=== PATIENT | female | born 1960 | race Caucasian/White ===

== ENCOUNTER → 2017-12-15 15:14 | Outpatient (CLI) | payer OTHER, SELFPAY ==
[2017-12-15 16:00] LABS: Add Manual Diff / Slide Review NO; Basophils Percent Auto 0.8 % (0-2); Eosinophils Percent Auto 1.5 % (2-4); Hematocrit 36.6 % (36-46); Hemoglobin 12.3 g/dL (12.0-16.0); Lymphocytes Percent Auto 32.8 % (25-40); Mean Corpuscular HGB Conc 33.6 % (30-36); Mean Corpuscular Hemoglobin 29.9 PG (26-34); Monocytes Percent Auto 8.3 % (3-14); Neutrophils Absolute Auto 3100 /uL (3000-5900); Neutrophils Percent Auto 56.6 % (50-75); Platelet Count 344 X10^3/uL (150-400); Red Blood Cell Count 4.11 X10^6/uL (4.0-5.2); Red Cell Distribution Width 13.5 % (11.6-14.8); White Blood Cell Count 5.5 X10^3/uL (4.5-11.0)
[2017-12-15 16:24] LABS: HEMOLYSIS < 15 (0-50); Iron 37 ug/dL (37-170)
[2017-12-15 16:35] LABS: Percent Iron Saturation 9 % (15-50); Total Iron Binding Capacity 392 ug/mL (265-497); Transferrin 323 mg/dL (206-381)
== END ==
PROVIDERS: Family Provider Family Medicine; PCP Family Medicine; Visit Provider Nurse Practitioner Gerontology
DX: D64.9 Anemia, unspecified (principal); D50.9 Iron deficiency anemia, unspecified
CPT/HCPCS: 36415; 83540; 83550; 85025

== ENCOUNTER 2017-12-24 14:12 | Emergency (ER) | payer OTHER, SELFPAY ==
--- NOTE | 2017-12-24 15:01 | ED.ABDPAIN ---
HPI - Abdominal Pain <Mary Saeed PA-C - Last Filed: 12/24/17 21:33> General Chief Complaint: Abdominal Pain Stated Complaint: PAIN ON LOWER LEFT SIDE,PELVIC PAIN Time Seen by Provider: 12/24/17 15:00 Source: patient Mode of arrival: ambulatory Limitations: no limitations History of Present Illness HPI narrative: This 57 year old female states that she has a known incisional hernia on the left side (diagnosed on exam per PCP). She states that initially she was supposed to have surgery for this a couple of years ago but could not due to other issues arising. Pain has been getting worse and she has already seen her PCP and has an appointment with surgery in about 3 weeks, however it seems much worse today. She denies any specific exacerbating features, does not remember lifting, bending or any specific action that worsen the pain. It might be worse with some movements now. She states that she was treated twice for diverticulitis but really did not improve. She denies any fever. She states that she has ongoing intermittent chills which are unchanged. She states that she has intermittent constipation and diarrhea for the last couple of days, which is not a new change for her. She denies any new urinary symptoms. She has mild nausea but no vomiting. She states that the pain can radiate from the groin crease up into the hip area and down into the thigh a little bit. She describes this as a ?pulling? sensation. She notes that she has been taking [place] once daily but out of that since yesterday. Related Data Home Medications Medication Instructions Recorded Confirmed methocarbamol 750 mg PO TIDP PRN 12/24/17 12/24/17 ondansetron [Zofran ODT] 4 mg SUBLINGUAL Q6HP PRN 12/24/17 12/24/17 Previous Rx's Medication Instructions Recorded omeprazole 40 mg PO QDAY #30 cap 12/14/17 hydrocodone-acetaminophen [Co[place]urn] 1 tab PO Q4-6H PRN #7 tab 12/24/17 hydrocodone 5 mg-acetaminophen 325 1 tab PO Q6H PRN #10 tab 12/25/17 mg tablet Allergies Allergy/AdvReac Type Severity Reaction Status Date / Time penicillin G [PENICILLIN G] Allergy Severe RASH AND Verified 12/24/17 15:07 ITCHING Sulfa (Sulfonamide Allergy Severe HIVES Verified 12/24/17 15:07 Antibiotics) [SULFA (SULFONAMIDE ANTIBIOTICS)] milnacipran [From Savella] AdvReac Severe anxiety Verified 12/24/17 15:07 and elevated BP venlafaxine [VENLAFAXINE] AdvReac Severe MESSED ME Verified 12/24/17 15:07 UP bupropion [BUPROPION] AdvReac Intermediate MESSED ME Verified 12/24/17 15:07 UP ibuprofen [IBUPROFEN] AdvReac Intermediate GI BLEEDING Verified 12/24/17 15:07 lisdexamfetamine AdvReac Intermediate Swelling Verified 12/24/17 15:07 [From VYVANSE] of arms, legs, neck methylphenidate AdvReac Intermediate muscle Verified 12/24/17 15:07 [From CONCERTA] spasm swelling of neck and arms Review of Systems <Mary Saeed PA-C - Last Filed: 12/24/17 21:33> Review of Systems All systems reviewed & are unremarkable except as noted in HPI and below Exam <Mary Saeed PA-C - Last Filed: 12/24/17 21:33> Narrative Exam Narrative: GENERAL APPEARANCE: Patient sitting comfortably, in no distress. HEENT: PERRL, EOMI, no scleral icterus NECK: Supple LUNGS: Clear to auscultation bilaterally. HEART: Rate and rhythm regular, normal S1 and S2, no S3 or S4. ABDOMEN: Soft, obese, nondistended, bowel sounds present x 4 quadrants, no hepatosplenomegaly. She is tender over the faint surgical scar near the left pubis and crural fold. There is some increased prominence lateral to this but no circumscribed mass or reducible mass palpated supine or standing She has more mild tenderness in the inferior part of the left lower quadrant without guarding or rebound. Some tenderness is elicited with forced left hip eversion EXTREMITIES: No edema, no cyanosis DERMATOLOGIC: No jaundice or exanthem NEUROLOGIC: Alert and oriented with normal speech and coordination Initial Vital Signs Initial Vital Signs: Vital Signs Temperature 98.9 F 12/24/17 15:07 Pulse Rate 87 12/24/17 15:07 Respiratory Rate 17 12/24/17 15:07 Blood Pressure 148/89 H 12/24/17 15:07 Pulse Oximetry 97 12/24/17 15:07 <James Cox DO - Last Filed: 12/27/17 00:48> Initial Vital Signs Initial Vital Signs: Vital Signs Temperature 98.9 F 12/24/17 15:07 Pulse Rate 87 12/24/17 15:07 Respiratory Rate 17 12/24/17 15:07 Blood Pressure 148/89 H 12/24/17 15:07 Pulse Oximetry 97 12/24/17 15:07 Course <Mary Saeed PA-C - Last Filed: 12/24/17 21:33> Orders Ordered: Discontinued Medications Hydrocodone Bitart/Acetaminophen ([place] 5/325) 2 tab PO NOW ONE Stop: 12/24/17 15:42 Last Admin: 12/24/17 15:54 Dose: 2 tab Vital Signs - 8 hr 12/24/17 15:07 12/24/17 16:41 12/24/17 17:57 Temperature 98.9 F Pulse Rate 87 71 90 Respiratory Rate 17 18 16 Blood Pressure 148/89 H 139/99 H Blood Pressure [Left Arm] 134/85 H Pulse Oximetry 97 100 100 <James Cox DO - Last Filed: 12/27/17 00:48> Orders Ordered: Discontinued Medications Hydrocodone Bitart/Acetaminophen ([place] 5/325) 2 tab PO NOW ONE Stop: 12/24/17 15:42 Last Admin: 12/24/17 15:54 Dose: 2 tab Vital Signs - 8 hr 12/24/17 15:07 12/24/17 16:41 12/24/17 17:57 Temperature 98.9 F Pulse Rate 87 71 90 Respiratory Rate 17 18 16 Blood Pressure 148/89 H 139/99 H Blood Pressure [Left Arm] 134/85 H Pulse Oximetry 97 100 100 MDM - Abdominal Pain <THI Meza Last Filed: 12/24/17 21:33> Imaging Data CT scan - abdomen: Radiologist's impression: [address] [address] [address] Scan Report Signed Patient: Milagro Duke MR#: [id number] : 1960 Acct:[id number] Age/Sex: 57 / F Date of Service: 12/24/17 Loc: ED Accession Number: [id number] Procedure: CT abdomen pelvis wo con Ordering Provider: Mary Saeed P.A-C PROCEDURE: CT ABDOMEN PELVIS WO CON INDICATIONS: L. incisional hernia/pain TECHNIQUE: Noncontrast 5 mm thick sections acquired from the diaphragms to the symphysis. 5 mm coronal and sagittal reformats were then performed. For radiation dose reduction, the following was used: automated exposure control, adjustment of mA and/or kV according to patient size. COMPARISON: None. FINDINGS: Image quality: Excellent. ABDOMEN: Lung bases: Lung bases are clear. Heart size is normal. There is a moderately large hiatal hernia behind the heart and mild reflux of oral contrast into the distal esophagus can be seen. Solid organs: Liver is normal in size. Gallbladder appears normal. Pancreas is normal in contours. Spleen is normal in size. No adrenal nodules. Kidneys are normal in size, without hydronephrosis or nephrolithiasis. Peritoneum and bowel: Unenhanced bowel loops demonstrate normal wall thickness and caliber. No free fluid or air. Nodes and vessels: No retroperitoneal or mesenteric adenopathy by size criteria. Aorta and inferior vena cava are normal in caliber. Miscellaneous: No ventral hernias. PELVIS: Genitourinary: Bladder wall thickness is normal. Miscellaneous: No inguinal hernias or adenopathy. A normal appendix is found at the right lower quadrant. Bones: No suspicious bony lesions. No vertebral body compression fractures. IMPRESSION: Moderately large hiatal hernia behind the heart, extension of oral contrast into the distal esophagus suggests mild reflux. No inflammatory change found throughout the abdomen or pelvis. Normal appendix found. No sign of diverticulitis. Mild diverticulosis incidentally noted left lower quadrant. Dictated by: John Sevilla M.D. on 12/24/2017 at 16:57 Approved by: John Sevilla M.D. on 12/24/2017 at 16:59 Discharge Plan Departure Patient Disposition: Home, Self-Care Clinical Impression: Abdominal pain Discharge Date/Time: 12/24/17 17:50 Interventions: ED Discharge Assessment Last Done: 12/24/17 17:57 Instructions: DI for Abdominal Pain-Adult Activity Restrictions/Additional Instructions: Your CT scan today does not show an incisional hernia. There does not seem to be any acute intestinal inflammation or surgical issue. You do have the large hiatal hernia which you were aware of, but that is not likely to be causing your pain. It is possible that this is related to a hip issue or muscle or ligament pain. You may also have scar tissue around your incision as well. Try taking Tylenol extended release or arthritis strength, 650 mg every 8 hr around the clock. You can add the prescription hydrocodone/acetaminophen to this when pain is more severe (maximum dose of acetaminophen 3000mg daily). You may want to just take an additional 2 of the prescription pain pills tonight at bedtime. Remember that this can make you sleepy and not to drive. Call your PCP office 1st thing tomorrow and make sure you get in for follow-up to talk about further evaluation, and also to get a refill on pain medication since you are not able to take anti-inflammatories Prescriptions: New hydrocodone-acetaminophen [[place]urn] 5-325 mg tablet 1 tab PO Q4-6H PRN (Reason: pain) Qty: 7 RF: 0 No Action omeprazole 40 mg capsule,delayed release(DR/EC) 40 mg PO QDAY Qty: 30 RF: 2 hydrocodone-acetaminophen 5-325 mg tablet 1 tab PO Q6H PRN (Reason: pain) Qty: 10 RF: 0 methocarbamol 750 MG tablet 750 mg PO TIDP PRN (Reason: Spasms) RF: 0 ondansetron [Zofran ODT] 4 MG tablet,disintegrating 4 mg Sublingual Q6HP PRN (Reason: Nausea) RF: 0 Referrals: Vania Leger DO [Primary Care Provider] - <James Cox DO - Last Filed: 12/27/17 00:48> [facility] Attending Bryan Attestation: I was immediately available in the department for consultation. Documentation has been reviewed. I agree with assessment and plan.
[2017-12-24 15:07] VITALS: BP 148/89; PULSE 87; RESP 17; TEMP 37.2; O2SAT 97; BMI 31.6
[2017-12-24] MEDS: HYDROCODONE/ACET 5/325 TABLET 2 TAB PO (15:54)
--- NOTE | 2017-12-24 16:34 | DI.CT.S_ITS ---
PROCEDURE: CT ABDOMEN PELVIS WO CON INDICATIONS: L. incisional hernia/pain TECHNIQUE: Noncontrast 5 mm thick sections acquired from the diaphragms to the symphysis. 5 mm coronal and sagittal reformats were then performed. For radiation dose reduction, the following was used: automated exposure control, adjustment of mA and/or kV according to patient size. COMPARISON: None. FINDINGS: Image quality: Excellent. ABDOMEN: Lung bases: Lung bases are clear. Heart size is normal. There is a moderately large hiatal hernia behind the heart and mild reflux of oral contrast into the distal esophagus can be seen. Solid organs: Liver is normal in size. Gallbladder appears normal. Pancreas is normal in contours. Spleen is normal in size. No adrenal nodules. Kidneys are normal in size, without hydronephrosis or nephrolithiasis. Peritoneum and bowel: Unenhanced bowel loops demonstrate normal wall thickness and caliber. No free fluid or air. Nodes and vessels: No retroperitoneal or mesenteric adenopathy by size criteria. Aorta and inferior vena cava are normal in caliber. Miscellaneous: No ventral hernias. PELVIS: Genitourinary: Bladder wall thickness is normal. Miscellaneous: No inguinal hernias or adenopathy. A normal appendix is found at the right lower quadrant. Bones: No suspicious bony lesions. No vertebral body compression fractures. IMPRESSION: Moderately large hiatal hernia behind the heart, extension of oral contrast into the distal esophagus suggests mild reflux. No inflammatory change found throughout the abdomen or pelvis. Normal appendix found. No sign of diverticulitis. Mild diverticulosis incidentally noted left lower quadrant. Dictated by: John Sevilla M.D. on 12/24/2017 at 16:57 Approved by: John Sevilla M.D. on 12/24/2017 at 16:59
[2017-12-24 16:41] VITALS: BP 134/85; PULSE 71; RESP 18; O2SAT 100
[2017-12-24 17:57] VITALS: BP 139/99; PULSE 90; RESP 16; O2SAT 100
== END 2017-12-24 17:50 | disposition home or self-care (01) ==
PROVIDERS: Emergency Provider Internal Medicine; Family Provider Family Medicine; PCP Family Medicine
DX: R10.9 Unspecified abdominal pain (principal)
CPT/HCPCS: 74176; 99282; 99284

== ENCOUNTER → 2018-02-04 15:22 | Outpatient (CLI) | payer OTHER, SELFPAY ==
[2018-02-04 15:56] LABS: Add Manual Diff / Slide Review NO; Basophils Percent Auto 0.7 % (0-2); Eosinophils Percent Auto 1.8 % (2-4); Hematocrit 37.6 % (36-46); Hemoglobin 12.8 g/dL (12.0-16.0); Lymphocytes Percent Auto 31.8 % (25-40); Mean Corpuscular HGB Conc 33.9 % (30-36); Mean Corpuscular Hemoglobin 30.3 PG (26-34); Mean Corpuscular Volume 89.5 fL (80-100); Monocytes Percent Auto 7.1 % (3-14); Neutrophils Absolute Auto 2800 /uL (3000-5900); Neutrophils Percent Auto 58.6 % (50-75); Platelet Count 338 X10^3/uL (150-400); Red Blood Cell Count 4.21 X10^6/uL (4.0-5.2); Red Cell Distribution Width 15.5 % (11.6-14.8); White Blood Cell Count 4.8 X10^3/uL (4.5-11.0)
[2018-02-04 17:02] LABS: HEMOLYSIS < 15 (0-50); Iron 61 ug/dL (37-170)
[2018-02-04 17:13] LABS: Percent Iron Saturation 19 % (15-50); Total Iron Binding Capacity 326 ug/dL (265-497); Transferrin 271 mg/dL (206-381)
== END ==
PROVIDERS: Family Provider Family Medicine; PCP Family Medicine; Visit Provider Nurse Practitioner Gerontology
DX: D50.9 Iron deficiency anemia, unspecified (principal)
CPT/HCPCS: 36415; 83540; 83550; 85025

== ENCOUNTER 2018-03-14 18:11 | Emergency (ER) | payer OTHER, SELFPAY ==
[2018-03-14 18:16] VITALS: BP 129/82; PULSE 98; RESP 18; TEMP 36.9; O2SAT 98; BMI 29.8
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
[2018-03-14 19:17] VITALS: BP 116/72; PULSE 101; RESP 16; TEMP 36.6; O2SAT 96
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
== END 2018-03-14 19:18 | disposition home or self-care (01) ==
PROVIDERS: Emergency Provider Emergency Medicine; Family Provider Family Medicine; PCP Family Medicine
DX: T20.40XA Corrosion of unspecified degree of head, face, and neck, unspecified site, initial encounter (principal); T65.91XA Toxic effect of unspecified substance, accidental (unintentional), initial encounter
CPT/HCPCS: 99282

== ENCOUNTER 2018-03-23 02:55 | Emergency (ER) | payer OTHER, SELFPAY ==
--- NOTE | 2018-03-23 03:02 | DI.RAD.S_ITS ---
PROCEDURE: XR ACUTE ABDOMEN SERIES INDICATIONS: Nausea, vomiting, weakness TECHNIQUE: One view chest and two views of the abdomen were acquired. COMPARISON: [facility], , ABDOMEN ACUTE SERIES, 11/18/2017, 7:47. FINDINGS: Surgical changes and devices: None. Chest: Lungs are clear. Heart size is normal. No pleural effusions. No pneumoperitoneum. Abdomen: Bowel gas pattern is normal. No suspicious calcifications. Visualized solid organ contours appear normal. Bones: No suspicious bony lesions. Lower lumbar discogenic changes. Mild bilateral hip degeneration. Chronic left-sided partial sacralization with associated degenerative changes and sclerosis. Chronic ununited lower lumbosacral posterior elements IMPRESSION: No bowel obstruction or free air identified. Mild/moderate stool. Dictated by: Dl Damian M.D. on 03/23/2018 at 8:06 Approved by: Dl Damian M.D. on 03/23/2018 at 8:12
[2018-03-23 03:03] VITALS: BP 142/90; PULSE 80; RESP 18; TEMP 35.6; O2SAT 100
[2018-03-23 03:22] LABS: Add Manual Diff / Slide Review NO; Basophils Percent Auto 0.4 % (0-2); Eosinophils Percent Auto 0.4 % (2-4); Hematocrit 43.1 % (36-46); Hemoglobin 14.9 g/dL (12.0-16.0); Lymphocytes Percent Auto 10.7 % (25-40); Mean Corpuscular HGB Conc 34.5 % (30-36); Mean Corpuscular Hemoglobin 30.8 PG (26-34); Mean Corpuscular Volume 89.3 fL (80-100); Monocytes Percent Auto 4.2 % (3-14); Neutrophils Absolute Auto 9100 /uL (3000-5900); Neutrophils Percent Auto 84.3 % (50-75); Platelet Count 435 X10^3/uL (150-400); Red Blood Cell Count 4.83 X10^6/uL (4.0-5.2); Red Cell Distribution Width 14.6 % (11.6-14.8); White Blood Cell Count 10.8 X10^3/uL (4.5-11.0)
[2018-03-23 03:32] LABS: Alanine Aminotransferase 23 IU/L (9-52); Albumin Globulin Ratio 1.6 (1.0-2.8); Alkaline Phosphatase 71 U/L (38-126); Aspartate Aminotransferase 24 IU/L (14-36); Bilirubin Total 0.3 mg/dL (0.2-1.3); Blood Urea Nitrogen 22 mg/dL (7-17); Calcium 9.9 mg/dL (8.4-10.2); Carbon Dioxide 29 mmol/L (22-32); Chloride 101 mmol/L (98-107); Estimated Glomerular Filt Rate 57.6 mL/min (>60); Globulin 3.2 g/dL (1.7-4.1); Glucose 136 mg/dL (70-100); HEMOLYSIS < 15 (0-50); Potassium 4.5 mmol/L (3.4-5.1); Sodium 142 mmol/L (137-145); Total Protein 8.2 g/dL (6.3-8.2)
[2018-03-23] MEDS: SODIUM CHLORIDE 0.9% 1,000 ML 1000 ML IV (03:34)
[2018-03-23] MEDS: PANTOPRAZOLE 40 MG VIAL IV (03:34)
[2018-03-23] MEDS: ONDANSETRON 4 MG/2 ML INJ IV (03:34)
--- NOTE | 2018-03-23 04:00 | ED.NAVMDI ---
HPI - Nausea/Vomiting/Diarrhea General Chief complaint: Abdominal Pain Stated complaint: vomiting for several hours Time Seen by Provider: 03/23/18 02:56 Source: patient Mode of arrival: ambulatory History of Present Illness HPI Narrative: 57-year-old female with a history of arthritis presents to the emergency department with a chief complaint of multiple episodes of nausea and vomiting with generalized abdominal cramping over the past 4 hr. She had been a little bit dizzy and lightheaded but improved upon arrival to the department. She denies any obviously bad food, use of antibiotics or recent travel. She denies exposure to sick contacts. She has no change in her recent medication regimen and denies any significant alcohol use. She has had no change in her bowel habits and denies chest pain or shortness of breath MD complaint: nausea and vomiting Onset (ago): hour(s) Description of Vomiting: food contents and watery Description of Diarrhea: none Associated Abdominal Pain: Yes Location of pain: diffuse Radiation: diffuse Severity: mild Quality: cramping Relieving factors: none Exacerbating factors: none Associated symptoms: nausea/vomiting Related Data Previous Rx's Medication Instructions Recorded duloxetine 30 mg capsule,delayed 30 mg PO DAILY #90 cap 01/18/18 release methocarbamol 750 mg tablet 750 mg PO TIDP PRN #90 tab 03/02/18 omeprazole 40 mg PO QDAY #30 cap 03/12/18 ondansetron [Zofran ODT] 4 mg PO Q6H PRN #14 tab 03/23/18 Allergies Allergy/AdvReac Type Severity Reaction Status Date / Time penicillin G [PENICILLIN G] Allergy Severe RASH AND Verified 03/14/18 18:23 ITCHING Sulfa (Sulfonamide Allergy Severe HIVES Verified 03/14/18 18:23 Antibiotics) [SULFA (SULFONAMIDE ANTIBIOTICS)] milnacipran [From Savella] AdvReac Severe anxiety Verified 03/14/18 18:23 and elevated BP venlafaxine [VENLAFAXINE] AdvReac Severe MESSED ME Verified 03/14/18 18:23 UP bupropion [BUPROPION] AdvReac Intermediate MESSED ME Verified 03/14/18 18:23 UP ibuprofen [IBUPROFEN] AdvReac Intermediate GI BLEEDING Verified 03/14/18 18:23 lisdexamfetamine AdvReac Intermediate Swelling Verified 03/14/18 18:23 [From VYVANSE] of arms, legs, neck methylphenidate AdvReac Intermediate muscle Verified 03/14/18 18:23 [From CONCERTA] spasm swelling of neck and arms Review of Systems Review of Systems All systems reviewed & are unremarkable except as noted in HPI and below Constitutional Denies chills, Denies fever(s), Denies lethargy and Denies weakness Eyes Denies change in vision, Denies eye discharge, Denies irritation and Denies loss of vision ENT Ears, Nose, Mouth, and Throat: Denies change in voice, Denies neck pain and Denies sore throat Cardiovascular Denies chest pain, Denies irregular heart rhythm, Denies lightheadedness, Denies palpitations, Denies dyspnea, Denies dyspnea on exertion and Denies orthopnea Respiratory Denies cough, Denies dyspnea, Denies dyspnea on exertion and Denies wheezing Gastrointestinal Gastrointestinal: Reports abdominal pain, Denies change in bowel habits, Denies diarrhea, Reports nausea and Reports vomiting Genitourinary Denies hematuria, Denies flank pain, Denies urinary incontinence and Denies urinary urgency Musculoskeletal Denies neck pain Integumentary/Breasts Denies pruritus, Denies erythema, Denies rash and Denies wounds Neurologic Denies confusion, Denies loss of vision and Denies weakness Psychiatric Denies anxiety, Denies confusion, Denies depression, Denies homicidal ideation and Denies suicidal ideation Endocrine Denies palpitations Hematologic/Lymphatic Denies easy bruising Allergic/Immunologic Denies wheezing [facility] Medical History Anemia (Chronic) Xerostomia (Chronic) 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) Iron deficiency anemia (Chronic 12/09/13) History of hiatal hernia (Chronic) Fibromyalgia (Chronic 07/23/16) Cervical arthritis (Chronic 09/16/16) 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) Arthritis of both hands (Chronic 11/07/16) Tobacco use (Chronic 08/25/17) Arthritis of carpometacarpal (CMC) joint of left thumb (Chronic 09/23/17) Attention deficit disorder (Chronic) Iritis (Chronic) Irritable bowel syndrome (Chronic) Prurigo nodularis (Chronic) Closed right ankle fracture (Resolved) Surgical History H/O hysterectomy with oophorectomy (Resolved) History of colon surgery (Resolved) History of thumb surgery (Resolved) Family History Father Heart disease Diabetes mellitus Mother Depression Hypertension Social History Smoking Status: Current some day smoker alcohol intake: former substance use type: former substance user Exam Initial Vital Signs Initial Vital Signs: Vital Signs Temperature 96.0 F L 03/23/18 03:03 Pulse Rate 80 03/23/18 03:03 Respiratory Rate 18 03/23/18 03:03 Blood Pressure 142/90 H 03/23/18 03:03 Pulse Oximetry 100 03/23/18 03:03 Course Orders Ordered: ED Orders 03/23/18 03:02 XR acute abdomen series Stat 03/23/18 03:13 Complete Blood Count AUTO DIFF Stat Comprehensive Metabolic Panel Stat Discontinued Medications Sodium Chloride (Normal Saline 0.9%) 1,000 mls @ 1,000 mls/hr IV BOLUS ONE Stop: 03/23/18 04:01 Last Infusion: 03/23/18 04:55 Dose: 0 mls/hr Admin: 03/23/18 03:34 Dose: 1,000 mls/hr Ondansetron HCl (Zofran) 4 mg IV NOW ONE Stop: 03/23/18 03:03 Last Admin: 03/23/18 03:34 Dose: 4 mg Ondansetron HCl (Zofran Odt Prepack) 1 bottle MISC SEEINSTR ONE Stop: 03/23/18 04:43 Last Admin: 03/23/18 04:43 Dose: 1 bottle Pantoprazole Sodium (Protonix) 40 mg IV NOW ONE Stop: 03/23/18 03:06 Last Admin: 03/23/18 03:34 Dose: 40 mg Vital Signs - 8 hr 03/23/18 03:03 03/23/18 04:01 03/23/18 04:50 Temperature 96.0 F L Pulse Rate 80 84 84 Respiratory Rate 18 15 17 Blood Pressure 142/90 H 131/87 H Blood Pressure [Right Arm] 133/68 H Pulse Oximetry 100 99 96 MDM - Nausea/Vomiting/Diarrhea Lab Data Result diagrams: 03/23/18 03:13 03/23/18 03:13 Lab Results 03/23/18 03/23/18 Range/Units 03:13 03:13 WBC 10.8 (4.5-11.0) X10^3/uL RBC 4.83 (4.0-5.2) X10^6/uL Hgb 14.9 (12.0-16.0) g/dL Hct 43.1 (36-46) % MCV 89.3 (80-100) fL MCH 30.8 (26-34) PG MCHC 34.5 (30-36) % RDW 14.6 (11.6-14.8) % Plt Count 435 H (150-400) X10^3/uL Neut % (Auto) 84.3 H (50-75) % Lymph % (Auto) 10.7 L (25-40) % [place] % (Auto) 4.2 (3-14) % Eos % (Auto) 0.4 L (2-4) % Baso % (Auto) 0.4 (0-2) % Neut # (Auto) 9100 H (0483-3786) /uL Sodium 142 (137-145) mmol/L Potassium 4.5 (3.4-5.1) mmol/L Chloride 101 (98-107) mmol/L Carbon Dioxide 29 (22-32) mmol/L BUN 22 H (7-17) mg/dL Creatinine 1.00 (0.52-1.04) mg/dL Estimated GFR 57.6 L (>60) mL/min BUN/Creatinine Ratio 22.0 (6-22) Glucose 136 H (70-100) mg/dL Calcium 9.9 (8.4-10.2) mg/dL Total Bilirubin 0.3 (0.2-1.3) mg/dL AST 24 (14-36) IU/L ALT 23 (9-52) IU/L Alkaline Phosphatase 71 (38-126) U/L Total Protein 8.2 (6.3-8.2) g/dL Albumin 5.0 (3.5-5.0) g/dL Globulin 3.2 (1.7-4.1) g/dL Albumin/Globulin Ratio 1.6 (1.0-2.8) Discharge Plan Departure Patient Disposition: Home Clinical Impression: Gastroenteritis Discharge Date/Time: 03/23/18 04:54 Interventions: ED Discharge Assessment Last Done: 03/23/18 04:50 Activity Restrictions/Additional Instructions: 1. Drink plenty of fluids with frequent small sips. 2. For the next 24 hours a clear liquid diet is advised. After that please employ a brat diet which would include bananas, rice, apples, toast. 3. Please take medications as directed. 4. Please follow-up with your doctor in the next 1-2 days. Call the office for an appointment. 5. Please return to the emergency Department for any worsening or persistent symptoms, such as increasing pain or fever. Prescriptions: New ondansetron [Zofran ODT] 4 mg tablet,disintegrating 4 mg PO Q6H PRN (Reason: nausea and vomiting) Qty: 14 RF: 0 No Action duloxetine 30 mg capsule,delayed release(DR/EC) 30 mg PO DAILY Qty: 90 RF: 1 methocarbamol 750 mg tablet 750 mg PO TIDP PRN (Reason: Spasms) Qty: 90 RF: 1 omeprazole 40 mg capsule,delayed release(DR/EC) 40 mg PO QDAY Qty: 30 RF: 2
[2018-03-23 04:01] VITALS: BP 133/68; PULSE 84; RESP 15; O2SAT 99
[2018-03-23] MEDS: ONDANSETRON 4 MG ODT PREPACK 1 BOTTLE MISC (04:43)
[2018-03-23 04:50] VITALS: BP 131/87; PULSE 84; RESP 17; O2SAT 96
== END 2018-03-23 04:54 | disposition home or self-care (01) ==
PROVIDERS: Emergency Provider Emergency Medicine; Family Provider Family Medicine; PCP Family Medicine
DX: K52.9 Noninfective gastroenteritis and colitis, unspecified (principal)
CPT/HCPCS: 36591; 74022; 80053; 82962; 85025; 96360; 96374; 96375; 99283; 99284; C9113; J2405

== ENCOUNTER 2018-04-20 03:13 | Observation (INO) | payer OTHER, SELFPAY ==
[2018-04-20 03:28] VITALS: BP 130/98; PULSE 99; RESP 15; TEMP 36.4; O2SAT 100; BMI 29.0
[2018-04-20 03:51] LABS: Add Manual Diff / Slide Review NO; Basophils Percent Auto 0.8 % (0-2); Eosinophils Percent Auto 1.7 % (2-4); Hematocrit 42.1 % (36-46); Hemoglobin 14.2 g/dL (12.0-16.0); Lymphocytes Percent Auto 15.6 % (25-40); Mean Corpuscular HGB Conc 33.7 % (30-36); Mean Corpuscular Volume 88.8 fL (80-100); Monocytes Percent Auto 5.2 % (3-14); Neutrophils Absolute Auto 7900 /uL (3000-5900); Neutrophils Percent Auto 76.7 % (50-75); Platelet Count 482 X10^3/uL (150-400); Red Blood Cell Count 4.74 X10^6/uL (4.0-5.2); Red Cell Distribution Width 13.7 % (11.6-14.8); White Blood Cell Count 10.4 X10^3/uL (4.5-11.0)
[2018-04-20 03:55] LABS: INR 1.1 (0.9-1.3); Prothrombin Time 11.6 SECONDS (10.1-12.7)
[2018-04-20 03:56] LABS: Ethanol (ETOH) < 10 mg/dL
[2018-04-20 03:57] LABS: Alanine Aminotransferase 21 IU/L (9-52); Albumin 4.8 g/dL (3.5-5.0); Albumin Globulin Ratio 1.6 (1.0-2.8); Alkaline Phosphatase 58 U/L (38-126); Aspartate Aminotransferase 21 IU/L (14-36); BUN Creatinine Ratio 43.8 (6-22); Bilirubin Total 0.4 mg/dL (0.2-1.3); Blood Urea Nitrogen 35 mg/dL (7-17); Calcium 9.5 mg/dL (8.4-10.2); Carbon Dioxide 34 mmol/L (22-32); Chloride 101 mmol/L (98-107); Estimated Glomerular Filt Rate > 60.0 mL/min (>60); Glucose 117 mg/dL (70-100); HEMOLYSIS < 15 (0-50); Potassium 4.3 mmol/L (3.4-5.1); Sodium 145 mmol/L (137-145); Total Protein 7.8 g/dL (6.3-8.2)
[2018-04-20 03:58] LABS: PTT Partial Thromboplastin Tim 32 SECONDS (26.4-36.2)
[2018-04-20] MEDS: PANTOPRAZOLE 40 MG VIAL IV (03:58)
[2018-04-20] MEDS: ONDANSETRON 4 MG ODT PO (04:06)
[2018-04-20] MEDS: METOCLOPRAMIDE 10 MG/2 ML INJ IV (04:33)
--- NOTE | 2018-04-20 04:37 | ED_ITS ---
HPI - GI Bleed General Chief complaint: GI Bleed Stated complaint: vomiting up coffee grounds Time Seen by Provider: 04/20/18 03:30 Source: patient Mode of arrival: ambulatory Limitations: no limitations History of Present Illness HPI Narrative: 57-year-old female with significant history of alcohol abuse presents with a chief complaint of coffee-ground emesis just prior to arrival. She has epigastric discomfort and is dizzy but not lightheaded. She denies any dark and tarry stools. She drank a least a six-pack of beer daily for quite some time but has been largely sober since 2010. She did a pill study in August of 2016 as well as endoscopy and reports no history of varices, bleeding ulcers or other sequela of chronic alcohol abuse. She denies use of any blood thinners and takes no NSAIDs. She does admit to having a few drinks yesterday MD complaint: coffee ground emesis Onset (ago): hour(s) Pain Consistency: constant Severity: mild Relieving factors: none Exacerbating factors: none Context: alcohol abuse Associated symptoms: abdominal pain Treatments Prior to Arrival: none Related Data Previous Rx's Medication Instructions Recorded duloxetine 30 mg capsule,delayed 30 mg PO DAILY #90 cap 01/18/18 release methocarbamol 750 mg tablet 750 mg PO TIDP PRN #90 tab 03/02/18 omeprazole 40 mg PO QDAY #30 cap 03/12/18 ondansetron [Zofran ODT] 4 mg PO Q6H PRN #14 tab 03/23/18 Allergies Allergy/AdvReac Type Severity Reaction Status Date / Time penicillin G [PENICILLIN G] Allergy Severe RASH AND Verified 03/14/18 18:23 ITCHING Sulfa (Sulfonamide Allergy Severe HIVES Verified 03/14/18 18:23 Antibiotics) [SULFA (SULFONAMIDE ANTIBIOTICS)] milnacipran [From Savella] AdvReac Severe anxiety Verified 03/14/18 18:23 and elevated BP venlafaxine [VENLAFAXINE] AdvReac Severe MESSED ME Verified 03/14/18 18:23 UP bupropion [BUPROPION] AdvReac Intermediate MESSED ME Verified 03/14/18 18:23 UP ibuprofen [IBUPROFEN] AdvReac Intermediate GI BLEEDING Verified 03/14/18 18:23 lisdexamfetamine AdvReac Intermediate Swelling Verified 03/14/18 18:23 [From VYVANSE] of arms, legs, neck methylphenidate AdvReac Intermediate muscle Verified 03/14/18 18:23 [From CONCERTA] spasm swelling of neck and arms Review of Systems Review of Systems All systems reviewed & are unremarkable except as noted in HPI and below Constitutional Denies chills, Denies fever(s), Denies lethargy and Denies weakness Eyes Denies change in vision, Denies eye discharge, Denies irritation and Denies loss of vision ENT Ears, Nose, Mouth, and Throat: Denies change in voice, Denies neck pain and Denies sore throat Cardiovascular Denies chest pain, Denies irregular heart rhythm, Denies lightheadedness, Denies palpitations, Denies dyspnea, Denies dyspnea on exertion and Denies orthopnea Respiratory Denies cough, Denies dyspnea, Denies dyspnea on exertion and Denies wheezing Gastrointestinal Gastrointestinal: Reports abdominal pain, Denies change in bowel habits, Denies diarrhea, Denies nausea and Reports vomiting Genitourinary Denies hematuria, Denies flank pain, Denies urinary incontinence and Denies urinary urgency Musculoskeletal Denies neck pain Integumentary/Breasts Denies pruritus, Denies erythema, Denies rash and Denies wounds Neurologic Denies confusion, Denies loss of vision and Denies weakness Psychiatric Denies anxiety, Denies confusion, Denies depression, Denies homicidal ideation and Denies suicidal ideation Endocrine Denies palpitations Hematologic/Lymphatic Denies easy bruising Allergic/Immunologic Denies wheezing [facility] Medical History Anemia (Chronic) Xerostomia (Chronic) 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) Iron deficiency anemia (Chronic 12/09/13) History of hiatal hernia (Chronic) Fibromyalgia (Chronic 07/23/16) Cervical arthritis (Chronic 09/16/16) 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) Arthritis of both hands (Chronic 11/07/16) Tobacco use (Chronic 08/25/17) Arthritis of carpometacarpal (CMC) joint of left thumb (Chronic 09/23/17) Attention deficit disorder (Chronic) Iritis (Chronic) Irritable bowel syndrome (Chronic) Prurigo nodularis (Chronic) Closed right ankle fracture (Resolved) Surgical History H/O hysterectomy with oophorectomy (Resolved) History of colon surgery (Resolved) History of thumb surgery (Resolved) Family History Father Heart disease Diabetes mellitus Mother Depression Hypertension Social History Smoking Status: Current some day smoker alcohol intake: former substance use type: former substance user Exam Narrative Exam Narrative: GENERAL: Pleasant 57-year-old female in mild distress, nauseated and admitting to some epigastric discomfort HEAD: Atraumatic. Normocephalic. No temporal or scalp tenderness. EYES: Pupils equal round and reactive. Extraocular motions intact. No scleral icterus. No injection or drainage. ENT: Nose without bleeding, purulent drainage or septal hematoma. Throat without erythema, tonsillar hypertrophy or exudate. Uvula midline. Airway patent. NECK: Trachea midline. No JVD or lymphadenopathy. Supple, nontender, no meningeal signs. CARDIOVASCULAR: Regular rate and rhythm without murmurs, gallops, or rubs. RESPIRATORY: Clear to auscultation. Breath sounds equal bilaterally. No wheezes , rales, or rhonchi. GASTROINTESTINAL: Abdomen soft, generalized upper tenderness, nondistended. No hepato-splenomegaly, or palpable masses. No guarding. EXTREMITIES: No clubbing, cyanosis, or edema. No joint tenderness, effusion, or edema noted. BACK: Nontender without deformity or crepitance. No flank tenderness. NEURO: AOx3. SKIN: No rash or erythema. Initial Vital Signs Initial Vital Signs: Vital Signs Temperature 97.5 F L 04/20/18 03:28 Pulse Rate 99 H 04/20/18 03:28 Respiratory Rate 15 04/20/18 03:28 Blood Pressure 130/98 H 04/20/18 03:28 Pulse Oximetry 100 04/20/18 03:28 Course Decision to Admit Date: 04/20/18 Decision to Admit time: 04:00 Orders Ordered: ED Orders 04/20/18 03:35 Complete Blood Count AUTO DIFF Stat Comprehensive Metabolic Panel Stat Ethanol (ETOH) Stat Partial Thromboplastin Time Stat Prothrombin Time INR Stat Type and Screen Stat Discontinued Medications Metoclopramide HCl (Reglan) 10 mg IV NOW ONE Stop: 04/20/18 04:31 Last Admin: 04/20/18 04:33 Dose: 10 mg Ondansetron HCl (Zofran) 4 mg IV NOW ONE Stop: 04/20/18 03:42 Ondansetron HCl (Zofran Odt) 4 mg PO NOW ONE Stop: 04/20/18 04:05 Last Admin: 04/20/18 04:06 Dose: 4 mg Pantoprazole Sodium (Protonix) 40 mg IV NOW ONE Stop: 04/20/18 03:42 Last Admin: 04/20/18 03:58 Dose: 40 mg Consultations Consultation #1: Dr. Braulio ochoa Vital Signs - 8 hr 04/20/18 03:28 Temperature 97.5 F L Pulse Rate 99 H Respiratory Rate 15 Blood Pressure 130/98 H Pulse Oximetry 100 MDM - GI Bleed Differential Diagnosis Likely esophageal varices, gastritis, Ainsley-Machado syndrome, Upper gastrointestinal hemorrhage, Lower gastrointestinal hemorrhage, hematochezia and melena Medical Records Attestation: I reviewed the patient's medical records. Lab Data Attestation: I reviewed the patient's lab results. Result diagrams: 04/20/18 03:35 04/20/18 03:35 Lab Results 04/20/18 04/20/18 04/20/18 Range/Units 03:35 03:35 03:35 WBC 10.4 (4.5-11.0) X10^3/uL RBC 4.74 (4.0-5.2) X10^6/uL Hgb 14.2 (12.0-16.0) g/dL Hct 42.1 (36-46) % MCV 88.8 (80-100) fL MCH 30.0 (26-34) PG MCHC 33.7 (30-36) % RDW 13.7 (11.6-14.8) % Plt Count 482 H (150-400) X10^3/uL Neut % (Auto) 76.7 H (50-75) % Lymph % (Auto) 15.6 L (25-40) % [place] % (Auto) 5.2 (3-14) % Eos % (Auto) 1.7 L (2-4) % Baso % (Auto) 0.8 (0-2) % Neut # (Auto) 7900 H (3365-6552) /uL PT 11.6 (10.1-12.7) SECONDS INR 1.1 (0.9-1.3) APTT 32 (26.4-36.2) SECONDS Sodium 145 (137-145) mmol/L Potassium 4.3 (3.4-5.1) mmol/L Chloride 101 (98-107) mmol/L Carbon Dioxide 34 H (22-32) mmol/L BUN 35 H (7-17) mg/dL Creatinine 0.80 (0.52-1.04) mg/dL Estimated GFR > 60.0 (>60) mL/min BUN/Creatinine Ratio 43.8 H (6-22) Glucose 117 H (70-100) mg/dL Calcium 9.5 (8.4-10.2) mg/dL Total Bilirubin 0.4 (0.2-1.3) mg/dL AST 21 (14-36) IU/L ALT 21 (9-52) IU/L Alkaline Phosphatase 58 (38-126) U/L Total Protein 7.8 (6.3-8.2) g/dL Albumin 4.8 (3.5-5.0) g/dL Globulin 3.0 (1.7-4.1) g/dL Albumin/Globulin Ratio 1.6 (1.0-2.8) Ethyl Alcohol mg/dL Blood Type Antibody Screen 04/20/18 04/20/18 Range/Units 03:35 03:35 WBC (4.5-11.0) X10^3/uL RBC (4.0-5.2) X10^6/uL Hgb (12.0-16.0) g/dL Hct (36-46) % MCV (80-100) fL MCH (26-34) PG MCHC (30-36) % RDW (11.6-14.8) % Plt Count (150-400) X10^3/uL Neut % (Auto) (50-75) % Lymph % (Auto) (25-40) % [place] % (Auto) (3-14) % Eos % (Auto) (2-4) % Baso % (Auto) (0-2) % Neut # (Auto) (4386-1282) /uL PT (10.1-12.7) SECONDS INR (0.9-1.3) APTT (26.4-36.2) SECONDS Sodium (137-145) mmol/L Potassium (3.4-5.1) mmol/L Chloride (98-107) mmol/L Carbon Dioxide (22-32) mmol/L BUN (7-17) mg/dL Creatinine (0.52-1.04) mg/dL Estimated GFR (>60) mL/min BUN/Creatinine Ratio (6-22) Glucose (70-100) mg/dL Calcium (8.4-10.2) mg/dL Total Bilirubin (0.2-1.3) mg/dL AST (14-36) IU/L ALT (9-52) IU/L Alkaline Phosphatase (38-126) U/L Total Protein (6.3-8.2) g/dL Albumin (3.5-5.0) g/dL Globulin (1.7-4.1) g/dL Albumin/Globulin Ratio (1.0-2.8) Ethyl Alcohol < 10 mg/dL Blood Type O Positive Antibody Screen Negative [facility] Narrative Medical decision making narrative: 57-year-old female with remote history of alcohol abuse and likely upper GI bleed is hemodynamically stable with stable H& H. She had upper GI investigation 18 months ago and no demonstration of varices or ulcers. She takes no blood thinners and denies excessive NSAID use. Hospitalist and general surgery been notified and are happy to evaluate the patient Discharge Plan Departure Patient Disposition: Admitted As Inpatient Clinical Impression: Acute upper gastrointestinal bleeding Admit Date/Time: 04/20/18 05:02 Admit Provider: Vania Leger
[2018-04-20 06:14] VITALS: BMI 29.0
[2018-04-20] MEDS: SODIUM CHLORIDE 0.9% 1,000 ML 125 ML IV (06:39)
[2018-04-20 07:25] VITALS: BP 127/77; PULSE 100; RESP 18; TEMP 37; O2SAT 98
[2018-04-20 07:30] VITALS: O2SAT 96
--- NOTE | 2018-04-20 07:57 | PM.HP.1 ---
History of Present Illness Date Patient Seen: 04/20/18 Time Patient Seen: 06:40 Chief complaint: vomiting up coffee grounds Narrative: 57-year-old female with fibromyalgia and chronic iron deficiency anemia with complaints coffee-ground emesis since the early hours of this morning. She was in her usual state of health yesterday and denies abdominal pain, nausea or vomiting. In the advisor consultant hours the day of admission she woke nauseated and went on to have seven or eight bouts of emesis, some but not all of which were coffee-ground in appearance. Patient denies black or tarry stools. Denies abdominal pain. She has never had coffee-ground emesis before so presented to the emergency department. In the ER vitals were stable and H&H normal. She was given a dose of Protonix. Patient had no further episodes of emesis after arrival to the hospital. She was admitted for observation and potential endoscopy. At the time of her exam this morning patient denied nausea and asked when she could go home. No known history of GI bleed. She has had an extensive workup in the past for unexplained anemia including colonoscopy x3 (one benign polyp, diverticulosis, hemorrhoids), endoscopy x2 and PillCam. All studies were negative for sources of bleeding. She follows with a hematology regarding her anemia. She has remote history of alcohol abuse however denies heavy drinking since 2010. She does drink occasionally but denies alcohol use the last several days. Patient History Medical History Anemia (Chronic) Xerostomia (Chronic) 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) Iron deficiency anemia (Chronic 12/09/13) History of hiatal hernia (Chronic) Fibromyalgia (Chronic 07/23/16) Cervical arthritis (Chronic 09/16/16) 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) Arthritis of both hands (Chronic 11/07/16) Tobacco use (Chronic 08/25/17) Arthritis of carpometacarpal (CMC) joint of left thumb (Chronic 09/23/17) DDD (degenerative disc disease) (Chronic) Hypertension (Chronic) Drug abuse in remission (Resolved) Attention deficit disorder (Chronic) Iritis (Chronic) Irritable bowel syndrome (Chronic) Prurigo nodularis (Chronic) Closed right ankle fracture (Resolved 1975) Surgical History History of ankle surgery (Resolved 1975) History of toe surgery (Resolved 1999) H/O hysterectomy with oophorectomy (Resolved) History of colon surgery (Resolved) History of thumb surgery (Resolved) Family & Social History Family History: Reviewed 04/20/18 by Vania Leger DO Social History: household members family Prior Living Arrangements House Safety & Behavioral: Feels Safe in Current Yes Environment Been Physically Hurt or No Threatened By a Person Suicidal Ideation Description None Tobacco & Substance use: Smoking Status Current some day smoker Smoking packs per day 1 alcohol intake former alcohol intake frequency 0-2 drinks per day Substance Use Type does not use Meds Home Medications Medication Instructions Recorded Confirmed Type duloxetine 30 mg capsule,delayed 30 mg PO DAILY #90 cap 01/18/18 04/20/18 Rx release methocarbamol 750 mg tablet 750 mg PO TIDP PRN #90 tab 03/02/18 04/20/18 Rx omeprazole 40 mg PO QDAY #30 cap 03/12/18 04/20/18 Rx Allergies Allergy/AdvReac Type Severity Reaction Status Date / Time penicillin G [PENICILLIN G] Allergy Severe RASH AND Verified 03/14/18 18:23 ITCHING Sulfa (Sulfonamide Allergy Severe HIVES Verified 03/14/18 18:23 Antibiotics) [SULFA (SULFONAMIDE ANTIBIOTICS)] milnacipran [From Savella] AdvReac Severe anxiety Verified 03/14/18 18:23 and elevated BP venlafaxine [VENLAFAXINE] AdvReac Severe MESSED ME Verified 03/14/18 18:23 UP bupropion [BUPROPION] AdvReac Intermediate MESSED ME Verified 03/14/18 18:23 UP ibuprofen [IBUPROFEN] AdvReac Intermediate GI BLEEDING Verified 03/14/18 18:23 lisdexamfetamine AdvReac Intermediate Swelling Verified 03/14/18 18:23 [From VYVANSE] of arms, legs, neck methylphenidate AdvReac Intermediate muscle Verified 03/14/18 18:23 [From CONCERTA] spasm swelling of neck and arms Review of Systems Constitutional Constitutional: Denies fever(s) Cardiovascular Cardiovascular: Denies chest pain Respiratory Respiratory: Denies cough Gastrointestinal Gastrointestinal: Denies abdominal pain, Reports belching, Denies melena, Reports coffee ground emesis, Reports nausea and Reports vomiting Exam Vital Signs (past 8 hours): - 04/20/18 03:28 Temperature 97.5 F L Pulse Rate 99 H Respiratory Rate 15 Blood Pressure 130/98 H Pulse Oximetry 100 Oxygen Delivery Method Room Air Narrative Exam Narrative: General appearance: Alert, appears stated age, cooperative. Head: Normocephalic, atraumatic, without obvious abnormality. Eyes: Conjunctivae/corneas clear. EOM's intact. Ears: External ears normal bilaterally. Nose: Nares normal. Mucosa pink and moist. Throat: Mucosa pink and moist. Neck: No adenopathy, supple, symmetric, trachea midline. Lungs: Clear to auscultation bilaterally, no wheezes or crackles. Heart: Regular rate and rhythm, S1, S2 normal, no murmur. Abdomen: Soft, non-tender; bowel sounds normal; no masses, no organomegaly. Extremities: Extremities normal, atraumatic, no edema. Neurologic: Alert and oriented x3. Psych: Mood and affect appropriately modulated. Judgment and insight regarding health issues, within normal limits. Recent and remote memory intact. Objective Labs Result Diagrams: 04/20/18 08:00 04/20/18 03:35 Labs: Laboratory Results - last 24 hr 04/20/18 04/20/18 04/20/18 03:35 03:35 03:35 WBC 10.4 RBC 4.74 Hgb 14.2 Hct 42.1 MCV 88.8 MCH 30.0 MCHC 33.7 RDW 13.7 Plt Count 482 H Neut % (Auto) 76.7 H Lymph % (Auto) 15.6 L Fisher % (Auto) 5.2 Eos % (Auto) 1.7 L Baso % (Auto) 0.8 Neut # (Auto) 7900 H PT 11.6 INR 1.1 APTT 32 Sodium 145 Potassium 4.3 Chloride 101 Carbon Dioxide 34 H BUN 35 H Creatinine 0.80 Estimated GFR > 60.0 BUN/Creatinine Ratio 43.8 H Glucose 117 H Calcium 9.5 Total Bilirubin 0.4 AST 21 ALT 21 Alkaline Phosphatase 58 Total Protein 7.8 Albumin 4.8 Globulin 3.0 Albumin/Globulin Ratio 1.6 Ethyl Alcohol Blood Type Antibody Screen 04/20/18 04/20/18 03:35 03:35 WBC RBC Hgb Hct MCV MCH MCHC RDW Plt Count Neut % (Auto) Lymph % (Auto) Fisher % (Auto) Eos % (Auto) Baso % (Auto) Neut # (Auto) PT INR APTT Sodium Potassium Chloride Carbon Dioxide BUN Creatinine Estimated GFR BUN/Creatinine Ratio Glucose Calcium Total Bilirubin AST ALT Alkaline Phosphatase Total Protein Albumin Globulin Albumin/Globulin Ratio Ethyl Alcohol < 10 Blood Type O Positive Antibody Screen Negative Assessment & Plan (1) Acute upper gastrointestinal bleeding: Current visit: Yes Status: Acute (2) Fibromyalgia: Current visit: No Status: Chronic (3) Alcohol dependence in remission: Problem details: Sober 20+ years Current visit: No Status: Resolved (4) Iron deficiency anemia: Qualifiers: Iron deficiency anemia type: Current visit: No Status: Chronic (5) Tobacco use: Current visit: No Status: Chronic Plan: Assessment/Plan Narrative: 57-year-old female with fibromyalgia, past alcohol abuse and history of iron deficiency anemia now with reports of coffee-ground emesis prior to arrival at the hospital. Since admission she has not had further episodes of emesis. H&H is stable. Patient denies recent relapse with alcohol. Due to reports of coffee-ground emesis patient has a presumed upper GI bleed however bleeding does not appear brisk and quite possibly has already resolved. Briefly discussed patient with Dr. Bennett with General Surgery. Given stability of patient and no further emesis in the hospital, will hold off on endoscopy and allow patient to eat. If emesis recurs then will ask surgery for possible upper endoscopy. If patient tolerates a general diet she can discharge home later today or tomorrow morning and follow up with surgery as an outpatient. She received a dose of Protonix in the ER. Will continue Protonix while inpatient however she already takes omeprazole normally. Will continue her usual Cymbalta and methocarbamol for fibromyalgia. Diet: Advance as tolerated to general diet DVT prophylaxis: SCDs Code status: Full code
[2018-04-20 08:27] LABS: Hematocrit 37.6 % (36-46); Hemoglobin 12.8 g/dL (12.0-16.0)
[2018-04-20] MEDS: NICOTINE 14 PATCH 14 MG TOP (11:56)
[2018-04-20 11:57] VITALS: BP 130/80; PULSE 85; RESP 18; TEMP 36.8; O2SAT 99
[2018-04-20 15:25] VITALS: BP 126/92; PULSE 95; RESP 16; TEMP 36.8; O2SAT 98
--- NOTE | 2018-04-20 15:56 | PC.NURSE ---
GI: No Gi discomfort/pain. Denies nausea. Has been up and amb in room w/out problems. Surg here and eval pt and reported she could have some food/fluids. No scope today. Pt received full liq diet and tolerated same w/out problems. Later Dr. Leger called in and increased pt's diet to general. Pt is going to try to eat some regular foods in a little while. She will be seen later by Dr. Leger to see how she is doing. Cont w/poc.
--- NOTE | 2018-04-20 17:22 | CM.DANOTE ---
Pt tolerating PO intake without complications, no nausea/vomiting during stay, denies pain, vitals stable. MD ordered discharge with follow up appointment on 05/11 with instruction to call clinic if symptoms re-appear. Pt verbalizes readiness for discharge, IV removed, belongings collected and returned back to patient. Staff transferred pt downstairs via wheelchair where son will drive home via private vehicle.
== END 2018-04-20 17:25 | disposition home or self-care (01) ==
LOC: ED 04:55 → AC 05:31
PROVIDERS: Admitting Provider Family Medicine; Emergency Provider Emergency Medicine; Family Provider Family Medicine; PCP Family Medicine; Visit Provider Family Medicine
DX: K92.2 Gastrointestinal hemorrhage, unspecified (principal); K92.0 Hematemesis; D50.9 Iron deficiency anemia, unspecified; F10.21 Alcohol dependence, in remission; M79.7 Fibromyalgia
CPT/HCPCS: 36415; 36591; 80053; 80320; 85014; 85018; 85025; 85610; 85730; 86850; 86900; 86901; 96374; 96375; 99282; 99284; 99406; G0378; C9113; J2765

== ENCOUNTER → 2018-04-26 15:22 | Outpatient (CLI) | payer OTHER, SELFPAY ==
[2018-04-20 06:14] VITALS: BMI 29.0
[2018-04-26 15:51] LABS: Add Manual Diff / Slide Review NO; Basophils Percent Auto 0.9 % (0-2); Eosinophils Percent Auto 2.3 % (2-4); Hematocrit 35.8 % (36-46); Hemoglobin 12.2 g/dL (12.0-16.0); Lymphocytes Percent Auto 30.7 % (25-40); Mean Corpuscular Hemoglobin 30.3 PG (26-34); Mean Corpuscular Volume 89.1 fL (80-100); Monocytes Percent Auto 7.8 % (3-14); Neutrophils Absolute Auto 3600 /uL (3000-5900); Neutrophils Percent Auto 58.3 % (50-75); Platelet Count 416 X10^3/uL (150-400); Red Blood Cell Count 4.02 X10^6/uL (4.0-5.2); Red Cell Distribution Width 13.9 % (11.6-14.8); White Blood Cell Count 6.1 X10^3/uL (4.5-11.0)
[2018-04-26 16:18] LABS: Alanine Aminotransferase 22 IU/L (9-52); Albumin 4.2 g/dL (3.5-5.0); Albumin Globulin Ratio 1.6 (1.0-2.8); Alkaline Phosphatase 46 U/L (38-126); Aspartate Aminotransferase 18 IU/L (14-36); BUN Creatinine Ratio 25.7 (6-22); Bilirubin Total 0.2 mg/dL (0.2-1.3); Blood Urea Nitrogen 18 mg/dL (7-17); Carbon Dioxide 30 mmol/L (22-32); Chloride 101 mmol/L (98-107); Estimated Glomerular Filt Rate > 60.0 mL/min (>60); Globulin 2.6 g/dL (1.7-4.1); Glucose 90 mg/dL (70-100); HEMOLYSIS < 15 (0-50); Potassium 4.1 mmol/L (3.4-5.1); Sodium 141 mmol/L (137-145); Total Protein 6.8 g/dL (6.3-8.2)
[2018-04-26 16:19] LABS: HEMOLYSIS < 15 (0-50); Iron 19 ug/dL (37-170)
[2018-04-26 16:30] LABS: Percent Iron Saturation 5 % (15-50); Total Iron Binding Capacity 352 ug/dL (265-497); Transferrin 294 mg/dL (206-381)
== END ==
PROVIDERS: Family Provider Family Medicine; PCP Family Medicine; Visit Provider Nurse Practitioner Gerontology
DX: D50.9 Iron deficiency anemia, unspecified (principal)
CPT/HCPCS: 36415; 80053; 83540; 83550; 85025

== ENCOUNTER → 2018-07-12 15:06 | Outpatient (CLI) | payer OTHER, SELFPAY ==
[2018-07-12 15:28] LABS: Add Manual Diff / Slide Review NO; Basophils Percent Auto 0.6 % (0-2); Eosinophils Percent Auto 2.1 % (2-4); Hematocrit 41.4 % (36-46); Hemoglobin 13.9 g/dL (12.0-16.0); Lymphocytes Percent Auto 29.3 % (25-40); Mean Corpuscular HGB Conc 33.5 % (30-36); Mean Corpuscular Hemoglobin 30.5 PG (26-34); Mean Corpuscular Volume 90.9 fL (80-100); Monocytes Percent Auto 7.5 % (3-14); Neutrophils Absolute Auto 4300 /uL (1500-7000); Neutrophils Percent Auto 60.5 % (50-75); Platelet Count 396 X10^3/uL (150-400); Red Blood Cell Count 4.55 X10^6/uL (4.0-5.2); Red Cell Distribution Width 14.3 % (11.6-14.8); White Blood Cell Count 7.1 X10^3/uL (4.5-11.0)
[2018-07-12 16:35] LABS: HEMOLYSIS < 15 (0-50); Iron 52 ug/dL (37-170)
[2018-07-12 16:45] LABS: Percent Iron Saturation 16 % (15-50); Total Iron Binding Capacity 318 ug/dL (265-497); Transferrin 283 mg/dL (206-381)
== END ==
PROVIDERS: Family Provider Family Medicine; PCP Family Medicine; Visit Provider Nurse Practitioner Gerontology
DX: D50.9 Iron deficiency anemia, unspecified (principal)
CPT/HCPCS: 36415; 83540; 83550; 85025

== ENCOUNTER 2018-07-17 01:03 | Emergency (ER) | payer OTHER, SELFPAY ==
[2018-07-17 01:16] VITALS: BP 158/104; PULSE 101; RESP 20; TEMP 35.7; O2SAT 100; BMI 31.6
--- NOTE | 2018-07-17 01:16 | ED_ITS ---
HPI - General Adult General Chief complaint: Nausea/Vomiting/Diarrhea Stated complaint: VOMITING/DIARRHEA Time Seen by Provider: 07/17/18 01:14 Source: patient Mode of arrival: ambulatory Limitations: no limitations History of Present Illness HPI narrative: 57-year-old female here for evaluation of nausea vomiting. Patient states that it started last evening. She does have a history of an upper GI bleed. She does take omeprazole on a daily basis. She states she drank 2 glasses of wine at lunch. States the vomiting started rather suddenly. Does not have any nausea medication at home. Related Data Home Medications Medication Instructions Recorded Confirmed nicotine 1 patch TRANSDERMAL DAILY 05/31/18 05/31/18 omeprazole 40 mg PO DAILY 05/31/18 Previous Rx's Medication Instructions Recorded ondansetron HCl [Zofran] 4 mg PO Q8HR PRN #10 tab 04/20/18 methocarbamol 750 mg tablet 750 mg PO TIDP PRN #90 tab 06/01/18 duloxetine 30 mg capsule,delayed 30 mg PO DAILY #90 cap 07/06/18 release ondansetron 4 mg PO Q6-8H PRN #10 tab 07/17/18 Allergies Allergy/AdvReac Type Severity Reaction Status Date / Time penicillin G [PENICILLIN G] Allergy Severe RASH AND Verified 05/04/18 15:26 ITCHING Sulfa (Sulfonamide Allergy Severe HIVES Verified 05/04/18 15:26 Antibiotics) [SULFA (SULFONAMIDE ANTIBIOTICS)] milnacipran [From Savella] AdvReac Severe anxiety Verified 05/04/18 15:26 and elevated BP venlafaxine [VENLAFAXINE] AdvReac Severe MESSED ME Verified 05/04/18 15:26 UP bupropion [BUPROPION] AdvReac Intermediate MESSED ME Verified 05/04/18 15:26 UP ibuprofen [IBUPROFEN] AdvReac Intermediate GI BLEEDING Verified 05/04/18 15:26 lisdexamfetamine AdvReac Intermediate Swelling Verified 05/04/18 15:26 [From VYVANSE] of arms, legs, neck methylphenidate AdvReac Intermediate muscle Verified 05/04/18 15:26 [From CONCERTA] spasm swelling of neck and arms Review of Systems Constitutional Denies fever(s) Cardiovascular Denies chest pain and Denies dyspnea Respiratory Denies dyspnea Gastrointestinal Gastrointestinal: Reports nausea and Reports vomiting Genitourinary Denies dysuria Musculoskeletal Denies myalgias and Denies arthralgias Integumentary/Breasts Denies rash Neurologic Denies behavioral changes Psychiatric Denies behavioral changes [facility] Social History household members: family Smoking Status: Current some day smoker alcohol intake: former substance use type: former substance user Exam Initial Vital Signs Initial Vital Signs: Vital Signs Temperature 96.3 F L 07/17/18 01:16 Pulse Rate 101 H 07/17/18 01:16 Respiratory Rate 20 07/17/18 01:16 Blood Pressure 158/104 H 07/17/18 01:16 Pulse Oximetry 100 07/17/18 01:16 Const General: cooperative, healthy appearing, comfortable, well developed, well groomed and No acute distress Orientation: alert, awake and oriented x3 HENMT Head: normal to inspection and normocephalic Resp Effort & Inspection: normal respiratory effort Auscultation: clear to auscultation bilaterally Cardio Rate: regular rate Rhythm: regular rhythm GI Inspection: non-distended Palpation: soft, No firm and No tender Skin Lesions: no lesions Rashes: no rashes Neuro General: alert, awake and oriented x3 Extrem General: normal to inspection and capillary refill normal Psych Appearance: grossly normal and well kempt Course Orders Ordered: ED Orders 07/17/18 01:45 Complete Blood Count AUTO DIFF Stat Comprehensive Metabolic Panel Stat Ethanol (ETOH) Stat Lipase Stat Discontinued Medications Sodium Chloride (Normal Saline 0.9%) 1,000 mls @ 1,000 mls/hr IV BOLUS ONE Stop: 07/17/18 02:19 Last Infusion: 07/17/18 02:58 Dose: 0 mls/hr Admin: 07/17/18 01:34 Dose: 1,000 mls/hr Metoclopramide HCl (Reglan) 10 mg IV NOW ONE Stop: 07/17/18 01:21 Last Admin: 07/17/18 01:34 Dose: 10 mg Ondansetron HCl (Zofran Odt) 4 mg PO NOW ONE Stop: 07/17/18 01:20 Last Admin: 07/17/18 01:34 Dose: 4 mg Ondansetron HCl (Zofran Odt Prepack) 1 bottle MISC SEEINSTR ONE Stop: 07/17/18 02:50 Last Admin: 07/17/18 03:05 Dose: 1 bottle Vital Signs - 8 hr 07/17/18 01:16 07/17/18 03:12 Temperature 96.3 F L 97.9 F Pulse Rate 101 H 81 Respiratory Rate 20 16 Blood Pressure 158/104 H 154/76 H Pulse Oximetry 100 100 Medical Decision Making Lab Data Lab results reviewed: Yes I reviewed the patient's lab results. Result diagrams: 07/17/18 01:45 07/17/18 01:45 Lab Results 07/17/18 07/17/18 07/17/18 Range/Units 01:45 01:45 01:45 WBC 15.2 H (4.5-11.0) X10^3/uL RBC 4.68 (4.0-5.2) X10^6/uL Hgb 14.4 (12.0-16.0) g/dL Hct 42.4 (36-46) % MCV 90.4 (80-100) fL MCH 30.7 (26-34) PG MCHC 33.9 (30-36) % RDW 14.3 (11.6-14.8) % Plt Count 516 H (150-400) X10^3/uL Neut % (Auto) 81.8 H (50-75) % Lymph % (Auto) 12.1 L (25-40) % [place] % (Auto) 4.4 (3-14) % Eos % (Auto) 1.1 L (2-4) % Baso % (Auto) 0.6 (0-2) % Neut # (Auto) 82978 H (6408-9950) /uL Sodium 143 (137-145) mmol/L Potassium 3.9 (3.4-5.1) mmol/L Chloride 101 (98-107) mmol/L Carbon Dioxide 29 (22-32) mmol/L BUN 29 H (7-17) mg/dL Creatinine 0.70 (0.52-1.04) mg/dL Estimated GFR > 60.0 (>60) mL/min BUN/Creatinine Ratio 41.4 H (6-22) Glucose 163 H (70-100) mg/dL Calcium 10.7 H (8.4-10.2) mg/dL Total Bilirubin 0.3 (0.2-1.3) mg/dL AST 27 (14-36) IU/L ALT 31 (9-52) IU/L Alkaline Phosphatase 70 (38-126) U/L Total Protein 7.9 (6.3-8.2) g/dL Albumin 4.9 (3.5-5.0) g/dL Globulin 3.0 (1.7-4.1) g/dL Albumin/Globulin Ratio 1.6 (1.0-2.8) Lipase 52 (23-300) U/L Ethyl Alcohol < 10 mg/dL MDM Narrative Medical decision making narrative: Patient reported a great improvement of her symptoms after medications through the IV here in the emergency department. Does have a leukocytosis but no signs of infection. I do suspect demargination from all of the vomiting. Patient was able to tolerate oral intake here in the emergency department. She does have a PPI at home. Hold on further workup for now. Patient is given return precautions. She expressed understanding and agreement with plan. Will send home with a prescription for Zofran. Discharge Plan Departure Patient Disposition: Home Clinical Impression: Nausea & vomiting Discharge Date/Time: 07/17/18 03:13 Interventions: ED Discharge Assessment Last Done: 07/17/18 03:12 Instructions: Nausea and Vomiting-Adult Activity Restrictions/Additional Instructions: I recommend that you continue with your heartburn medication. I also recommend that you drink small amounts of fluid over longer periods of time. Eat a bland diet. Return to the emergency department for any new or worsening symptoms. Prescriptions: New ondansetron 4 mg tablet,disintegrating 4 mg PO Q6-8H PRN (Reason: nausea and vomiting) Qty: 10 RF: 0 No Action methocarbamol 750 mg tablet 750 mg PO TIDP PRN (Reason: Spasms) Qty: 90 RF: 2 duloxetine 30 mg capsule,delayed release(DR/EC) 30 mg PO DAILY Qty: 90 RF: 1 omeprazole 40 mg capsule,delayed release(DR/EC) 40 mg PO DAILY RF: 0 nicotine 14 mg/24 hr Patch 24 Hour 1 patch TRANSDERMAL DAILY RF: 0 ondansetron HCl [Zofran] 4 mg tablet 4 mg PO Q8HR PRN (Reason: nausea and vomiting) Qty: 10 RF: 0
[2018-07-17] MEDS: SODIUM CHLORIDE 0.9% 1,000 ML 1000 ML IV (01:34)
[2018-07-17] MEDS: ONDANSETRON 4 MG ODT PO (01:34)
[2018-07-17] MEDS: METOCLOPRAMIDE 10 MG/2 ML INJ IV (01:34)
[2018-07-17 01:53] LABS: Add Manual Diff / Slide Review NO; Basophils Percent Auto 0.6 % (0-2); Eosinophils Percent Auto 1.1 % (2-4); Hematocrit 42.4 % (36-46); Hemoglobin 14.4 g/dL (12.0-16.0); Lymphocytes Percent Auto 12.1 % (25-40); Mean Corpuscular HGB Conc 33.9 % (30-36); Mean Corpuscular Hemoglobin 30.7 PG (26-34); Mean Corpuscular Volume 90.4 fL (80-100); Monocytes Percent Auto 4.4 % (3-14); Neutrophils Absolute Auto 12400 /uL (1500-7000); Neutrophils Percent Auto 81.8 % (50-75); Platelet Count 516 X10^3/uL (150-400); Red Blood Cell Count 4.68 X10^6/uL (4.0-5.2); Red Cell Distribution Width 14.3 % (11.6-14.8); White Blood Cell Count 15.2 X10^3/uL (4.5-11.0)
[2018-07-17 01:56] LABS: Lipase 52 U/L (23-300)
[2018-07-17 01:57] LABS: Alanine Aminotransferase 31 IU/L (9-52); Albumin 4.9 g/dL (3.5-5.0); Albumin Globulin Ratio 1.6 (1.0-2.8); Alkaline Phosphatase 70 U/L (38-126); Aspartate Aminotransferase 27 IU/L (14-36); BUN Creatinine Ratio 41.4 (6-22); Bilirubin Total 0.3 mg/dL (0.2-1.3); Blood Urea Nitrogen 29 mg/dL (7-17); Calcium 10.7 mg/dL (8.4-10.2); Carbon Dioxide 29 mmol/L (22-32); Chloride 101 mmol/L (98-107); Estimated Glomerular Filt Rate > 60.0 mL/min (>60); Ethanol (ETOH) < 10 mg/dL; Glucose 163 mg/dL (70-100); HEMOLYSIS < 15 (0-50); Potassium 3.9 mmol/L (3.4-5.1); Sodium 143 mmol/L (137-145); Total Protein 7.9 g/dL (6.3-8.2)
[2018-07-17] MEDS: ONDANSETRON 4 MG ODT PREPACK 1 BOTTLE MISC (03:05)
[2018-07-17 03:12] VITALS: BP 154/76; PULSE 81; RESP 16; TEMP 36.6; O2SAT 100
== END 2018-07-17 03:13 | disposition home or self-care (01) ==
PROVIDERS: Emergency Provider Emergency Medicine; Family Provider Family Medicine; PCP Family Medicine
DX: R11.2 Nausea with vomiting, unspecified (principal)
CPT/HCPCS: 36591; 80053; 80320; 83690; 85025; 96361; 96374; 99283; 99284; J2765

== ENCOUNTER → 2018-09-28 15:47 | Outpatient (CLI) | payer OTHER, SELFPAY ==
[2018-09-28 16:07] LABS: Add Manual Diff / Slide Review NO; Basophils Absolute Auto 100 /uL (0-100); Basophils Percent Auto 0.8 % (0-2); Eosinophils Absolute Auto 200 /uL (0-450); Eosinophils Percent Auto 2.6 % (2-4); Hematocrit 37.6 % (36-46); Hemoglobin 12.4 g/dL (12.0-16.0); Lymphocytes Absolute Auto 2500 /uL (1100-4500); Lymphocytes Percent Auto 41.5 % (25-40); Mean Corpuscular Hemoglobin 29.5 PG (26-34); Mean Corpuscular Volume 89.6 fL (80-100); Monocytes Absolute Auto 500 /uL (0-900); Monocytes Percent Auto 8.4 % (3-14); Neutrophils Absolute Auto 2800 /uL (1500-7000); Neutrophils Percent Auto 46.7 % (50-75); Platelet Count 437 X10^3/uL (150-400); Red Cell Distribution Width 13.4 % (11.6-14.8)
[2018-09-28 17:58] LABS: HEMOLYSIS < 15 (0-50); Iron 30 ug/dL (37-170)
[2018-09-28 18:09] LABS: Percent Iron Saturation 7 % (15-50); Total Iron Binding Capacity 430 ug/dL (265-497); Transferrin 346 mg/dL (206-381)
== END ==
PROVIDERS: Family Provider Family Medicine; PCP Family Medicine; Visit Provider Nurse Practitioner Gerontology
DX: D50.9 Iron deficiency anemia, unspecified (principal)
CPT/HCPCS: 36415; 83540; 83550; 85025

== ENCOUNTER → 2018-11-06 08:12 | Outpatient (CLI) | payer OTHER, SELFPAY ==
--- NOTE | 2018-11-06 | DI.MG.S_ITS ---
BILATERAL DIGITAL SCREENING MAMMOGRAM 3D/2D WITH CAD: 11/06/2018 CLINICAL: Routine screening. Comparison is made to exams dated: 11/02/2017 mammogram, 10/17/2016 mammogram, and 05/11/2015 mammogram - [facility]. There are scattered fibroglandular elements in both breasts. Current study was also evaluated with a Computer Aided Detection (CAD) system. No significant masses, calcifications, or other findings are seen in either breast. There has been no significant interval change. IMPRESSION: NEGATIVE There is no mammographic evidence of malignancy. A 1 year screening mammogram is recommended. This exam was interpreted at Station ID: [id number]. NOTE: For mammograms, a report in lay terms will be sent to the patient. Approximately 15% of breast malignancies will not be visualized mammographically. In the management of a palpable breast mass, a negative mammogram must not discourage biopsy of a clinically suspicious lesion. Electronically Signed By: Franky Hughes M.D. at/ron:11/08/2018 08:57:38 letter sent: Normal Exam ACR BI-RADS Category 1: Negative [id number]
== END ==
PROVIDERS: Family Provider Family Medicine; PCP Family Medicine; Visit Provider Family Medicine
DX: Z12.31 Encounter for screening mammogram for malignant neoplasm of breast (principal)
CPT/HCPCS: 77063; 77067

== ENCOUNTER → 2018-11-18 14:50 | Outpatient (CLI) | payer OTHER, SELFPAY ==
--- NOTE | 2018-11-18 14:52 | DI.CT.S_ITS ---
PROCEDURE: CT CHEST ABD PEL W CON INDICATIONS: anemia, unknown etiology, unknwon bleeding sites. TECHNIQUE: After the administration of oral and intravenous contrast, 5 mm thick sections acquired from the lung apices to the symphysis. 5 mm coronal and sagittal reformats were performed, with additional 7 mm coronal MIP reformats through the lungs. For radiation dose reduction, the following was used: automated exposure control, adjustment of mA and/or kV according to patient size. COMPARISON: [facility], CT, CT ABDOMEN PELVIS WO CON, 12/24/2017, 16:37. [facility], CT, THORAX WITHOUT CONTRAST, 01/03/2016, 14:46. FINDINGS: Image quality: Excellent. CHEST: Lungs and pleura: No acute consolidation. 1 mm nodule seen in the posterior right upper lobe on image 26 series 7, which is unchanged since 2016 therefore considered benign prior granulomatous disease. No pleural effusions or pneumothorax. Central and peripheral airways appear patent and normal in caliber. Mediastinum: Heart size is normal. No pericardial effusion. No mediastinal or hilar adenopathy by size criteria. Thoracic aorta and central pulmonary arteries are normal in size. Esophagus is normal in caliber. No hiatal hernia. Chest wall: No axillary or supraclavicular adenopathy by size criteria. Thyroid gland negative. ABDOMEN: Solid organs: Presumed hepatic cyst on image 57 series 2 grossly unchanged. Gallbladder unremarkable. Biliary system is non dilated. Pancreas enhances normally. Spleen is normal in size and enhancement. No adrenal nodules. Kidneys demonstrate normal size and enhancement, without hydronephrosis. Simple appearing left renal cyst. Peritoneum and bowel: Large hiatal hernia is redemonstrated. No free fluid or free air. No evidence of bowel obstruction. Colonic diverticulosis is seen without evidence of acute complication. The appendix is within normal limits Rectum is grossly unremarkable There is questionable short segment bowel wall thickening involving sigmoid colon on image 106 however this could be falsely accentuated due to decompressed status. Depending on clinical suspicion, lower endoscopy could be performed to further assess. This could also be related to chronic diverticulitis or low-grade infectious/inflammatory colitis. Nodes and vessels: No retroperitoneal or mesenteric adenopathy by size criteria. Aorta and inferior vena cava are normal in size. Miscellaneous: No ventral hernias. PELVIS: Genitourinary: Bladder wall thickness is normal. Miscellaneous: No inguinal hernias or adenopathy. Bones: No suspicious bony lesions. Incidentally noted partial left-sided sacralization of L5, with pseudoarthrosis. Multilevel degenerative endplate sclerosis and spurring. Diffuse facet arthropathy. No vertebral body compression fractures. IMPRESSION: Questionable mild short segment sigmoid colonic wall thickening although this could be entirely due to decompressed status. As clinically warranted, consider further evaluation with lower endoscopy. Elsewhere, no specific evidence of malignancy or metastatic disease. Large hiatal hernia as before. Additional chronic and incidental findings as above. Dictated by: Dl Damian M.D. on 11/18/2018 at 17:44 Approved by: Dl Damian M.D. on 11/18/2018 at 17:54
== END ==
PROVIDERS: Family Provider Family Medicine; PCP Family Medicine; Visit Provider Internal Medicine Hematology & Oncology
DX: D50.9 Iron deficiency anemia, unspecified (principal); R91.1 Solitary pulmonary nodule; N28.1 Cyst of kidney, acquired; K44.9 Diaphragmatic hernia without obstruction or gangrene; K57.90 Diverticulosis of intestine, part unspecified, without perforation or abscess without bleeding; M43.27 Fusion of spine, lumbosacral region
CPT/HCPCS: 71260; 74177; Q9967

== ENCOUNTER 2019-04-27 16:00 | Outpatient (RCR) | payer OTHER, SELFPAY ==
--- NOTE | 2018-11-23 18:15 | PT.OIE ---
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) Arthritis of both hands (Chronic 11/07/16) Tobacco use (Chronic 08/25/17) Arthritis of carpometacarpal (CMC) joint of left thumb (Chronic 09/23/17) Attention deficit disorder (Chronic) DDD (degenerative disc disease) (Chronic) Hypertension (Chronic) Iritis (Chronic) Irritable bowel syndrome (Chronic) Prurigo nodularis (Chronic) Closed right ankle fracture (Resolved 1975) Drug abuse in remission (Resolved) Past Surgical History (Last Reviewed 10/07/18 @ 09:28 by Vania Leger DO) H/O hysterectomy with oophorectomy (Resolved) History of ankle surgery (Resolved 1975) History of colon surgery (Resolved) History of thumb surgery (Resolved) History of toe surgery (Resolved 1999) Provider Visit Care Team Role Provider Type Vania Leger DO Primary Care Provider Physician Specialty: Family Practice Address: [address] [place] [address], [id number] Email: [email or web address] Jorden Rodgers DPM Attending Provider Non-Staff Specialty: Podiatry Address: [address] [place] [address], [id number] Email: Physical Therapy Initial Evaluation PT-OP-A Visit Information Start: 11/23/18 17:42 Freq: Status: Active Protocol: Document 11/23/18 16:00 DCW (Rec: 11/23/18 18:15 DCW [id number]) Out-Patient Physical Therapy Visit Information Visit Information Visit Type Initial Evaluation Visit Start Time 16:00 Visit Stop Time 16:45 Total Visit Minutes 45 Visit Number 1 Number of COMPOSING ROOM MACHINIST Visits 0 Evaluation Information Evaluation Date 11/23/18 PT-OP-B Current Condition Start: 11/23/18 17:42 Freq: Status: Active Protocol: Document 11/23/18 16:00 DCW (Rec: 11/23/18 18:15 DCW [id number]) Current Condition History of Current Condition Current Complaints Plantar surface pain, heel pain, Achilles pain History of Current Condition Pt reports a history of worsening Plantar fascial fibromatosis, which has resulted in multiple nodules along the plantar surface of her left foot. Pt notes that this has been causing pain off and on for years, and she has now been getting increased pain in her heel and Achilles tendon as well. Pt also notes that 8 weeks ago, she tripped and sprained her MCL, which has resulted in a decline in mobility and activity levels, and a recent increase in weight gait. Pt also notes that she has noticed the beginning of nodules on her right foot as well. Treatment Goals Patient/Caregiver Goals I just want to get the pain out of my foot. I want to be able to stand and function like a normal person. Prior Functional Status Baseline Function- ADL's Independent Baseline Function- Mobility Independent Current Functional Impairments (Reported) Functional Limitations- Mobility/Gait Pt unable to walk more than one hour without increased pain. Pt has increased pain with walking on hills. PT-OP-C Subjective Start: 11/23/18 17:42 Freq: Status: Active Protocol: Document 11/23/18 16:00 DCW (Rec: 11/23/18 18:15 DCW [id number]) Patient Questionnaires Lower Extremity Functional Scale LEFS Score 34/80 = 42.5 LEFS Impairment 40 to 59% Impaired (Score 32- 47) OP-PT Pain Assessment Pain Assessment Grid Paper Pain Assessment Grid Completed Yes: See chart PT-OP-F Manual Assessment Start: 11/23/18 17:42 Freq: Status: Active Protocol: Document 11/23/18 16:00 DCW (Rec: 11/23/18 18:15 DCW [id number]) Manual Assessments Soft Tissue Assessment Soft Tissue Mobility Assessment Pt has two palpable nodules along plantar surface of right foot, near mid-arch and just before the ball of her foot below her second toe. Tenderness to palpation of left heel and Achilles tendon 2/4: Pain with wincing. Tenderness to palpation of left Gastroc 3/4: Wincing and withdraw PT-OP-J Posture/Palpation/Skin Start: 11/23/18 17:42 Freq: Status: Active Protocol: Document 11/23/18 16:00 DCW (Rec: 11/23/18 18:15 DCW [id number]) Palpation Assessment Location Two Palpation Location Left Gastroc Palpation Findings Soft Tissue Tightness Spasm Tenderness One Palpation Location Left plantar surface Palpation Details Multiple nodules along flexor digitorum tendons PT-OP-K Range of Motion Start: 11/23/18 17:42 Freq: Status: Active Protocol: Document 11/23/18 16:00 DCW (Rec: 11/23/18 18:15 DCW [id number]) Ankle and Foot Goniometric Range of Motion Ankle and Foot Measured in Degrees Left Active Testing Position Sitting Plantarflexion 52 Inversion 35 Eversion 22 Ankle and Foot ROM Limitations Comments Left DF with knee flexed: AROM 3? from neutral, PROM 8? PT-OP-L Special Tests Start: 11/23/18 17:42 Freq: Status: Active Protocol: Document 11/23/18 16:00 DCW (Rec: 11/23/18 18:15 DCW [id number]) Special Tests Foot/Ankle Special Tests Post Tibiotalor Subluxation Test Results Negative Peroneal Subluxation Test Results Negative Anterior Draw Test Results Negative PT-OP-M Strength Start: 11/23/18 17:42 Freq: Status: Active Protocol: Document 11/23/18 16:00 DCW (Rec: 11/23/18 18:15 DCW [id number]) Ankle/Foot Strength Ankle and Foot Manual Muscle Testing Left Dorsiflexion (L4) 4 Good Plantarflexion (S1) 4- Good- Inversion 4 Good Eversion (S1) 4 Good PT-OP-Q Treatments Start: 11/23/18 17:42 Freq: Status: Active Protocol: Document 11/23/18 16:00 DCW (Rec: 11/23/18 18:15 DCW [id number]) Therapeutic Exercises Sitting Exercises 4-way ankle Flexion Sitting Exercise Name 4-way ankle flexion Side bilateral Resistance Lv 2 Equipment Used T-band Comments PF, DF< Inv, Ev Standing Exercises Gastroc Stretch Standing Exercise Name Runner's Stretch Side left PT-OP-T Assessment and Plan Start: 11/23/18 17:42 Freq: Status: Active Protocol: Document 11/23/18 16:00 DCW (Rec: 11/23/18 18:15 DCW [id number]) Physical Therapy Assessment Rehab Potential Rehabilitation Potential Good Evaluation Complexity Number of Personal Factors/Comorbidities 3 or More Number of Body Systems Impaired 4 or More Clinical Presentation at Evaluation Evolving Impairments Impairments Functional Activities Gait Pain ROM Soft Tissue Mobility Strength Tone Goals Three Impairment Pt AROM DF limited to 3? from neutral Detention Goal (LTG) Pt to exhibit 10? DF with knee flexed LTG Duration 01/23/19 Two Impairment Pt unable to walk more than one hour without pain Detention Goal (LTG) Pt to walk two hours without increased pain to improve ability to shop independently. LTG Duration 01/23/19 One Impairment Pt does not have an appropriate home exercise program Short Term Goal (STG) Pt to be independent and complaint with an appropriate HEP STG Duration 12/23/18 Assessment Summary Assessment Pt presents with signs and symptoms of plantar fibromatosis/fasciitis. Pt has painful nodules along the plantar surface of her feet, and also has occasional generalized pain at her heel and into her heel cord with standing and walking. Pt exhibits left gastroc tightness, resulting in a limited AROM DF of her left ankle, 3? from neutral, as well as increased tone long the length of her gastroc. Pt should benefit from skilled therapy focusing on improving tone and ROM, decreasing plantar inflammation, and improving tolerance to standing, walking, and mobility. Pt may also benefit from Ultrasound and Iontophoresis Physical Therapy Plan Frequency and Duration Frequency of Treatment 2x/Week Duration of Treatment 10 weeks Plan of Care Start Date 11/23/18 Plan of Care End Date 02/01/19 Therapeutic Interventions Therapeutic Interventions Home Exercise Program Joint Mobilizations Manual Therapy Self-Care/Home Management Soft Tissue Mobilization Therapeutic Activities Therapeutic Exercises Modalities Cold Pack/Ice Massage Electric Stimulation Hot Packs Iontophoresis Ultrasound Next Visit Focus/Plan Next Note Type Treatment Note Next Visit Plan STM to heel and gastroc, ankle strengthening, calf flexibility, US/Ionto
--- NOTE | 2018-11-23 18:16 | PT.OPPOC ---
Current Diagnoses Plantar fascial fibromatosis (11/23/18) Pain in right foot (11/23/18) Pain in left foot (11/23/18) Provider Visit Care Team Role Provider Type Vania Leger DO Primary Care Provider Physician Specialty: Family Practice Address: [address] [place], [address] Email: [email or web address] Jorden Rodgers DPM Attending Provider Non-Staff Specialty: Podiatry Address: [address] [place], [address] Email: Plan Of Care PT-OP-T Assessment and Plan Start: 11/23/18 17:42 Freq: Status: Active Protocol: Document 11/23/18 16:00 DCW (Rec: 11/23/18 18:15 DCW [id number]) Physical Therapy Assessment Rehab Potential Rehabilitation Potential Good Evaluation Complexity Number of Personal Factors/Comorbidities 3 or More Number of Body Systems Impaired 4 or More Clinical Presentation at Evaluation Evolving Impairments Impairments Functional Activities Gait Pain ROM Soft Tissue Mobility Strength Tone Goals Three Impairment Pt AROM DF limited to 3? from neutral Usp Goal (LTG) Pt to exhibit 10? DF with knee flexed LTG Duration 01/23/19 Two Impairment Pt unable to walk more than one hour without pain Usp Goal (LTG) Pt to walk two hours without increased pain to improve ability to shop independently. LTG Duration 01/23/19 One Impairment Pt does not have an appropriate home exercise program Short Term Goal (STG) Pt to be independent and complaint with an appropriate HEP STG Duration 12/23/18 Assessment Summary Assessment Pt presents with signs and symptoms of plantar fibromatosis/fasciitis. Pt has painful nodules along the plantar surface of her feet, and also has occasional generalized pain at her heel and into her heel cord with standing and walking. Pt exhibits left gastroc tightness, resulting in a limited AROM DF of her left ankle, 3? from neutral, as well as increased tone long the length of her gastroc. Pt should benefit from skilled therapy focusing on improving tone and ROM, decreasing plantar inflammation, and improving tolerance to standing, walking, and mobility. Pt may also benefit from Ultrasound and Iontophoresis Physical Therapy Plan Frequency and Duration Frequency of Treatment 2x/Week Duration of Treatment 10 weeks Plan of Care Start Date 11/23/18 Plan of Care End Date 02/01/19 Therapeutic Interventions Therapeutic Interventions Home Exercise Program Joint Mobilizations Manual Therapy Self-Care/Home Management Soft Tissue Mobilization Therapeutic Activities Therapeutic Exercises Modalities Cold Pack/Ice Massage Electric Stimulation Hot Packs Iontophoresis Ultrasound Other Therapeutic Interventions Iontophoresis /c Dexamethasone ; 4 mg/mL Next Visit Focus/Plan Next Note Type Treatment Note Next Visit Plan STM to heel and gastroc, ankle strengthening, calf flexibility, US/Ionto Plan of Care Dates Plan of Care Start Date 11/23/18 Plan of Care End Date 02/01/19 Please Sign and Return: I have reviewed this Plan of Care and certify that the skilled therapy services above are required to meet the patient?s needs. Physician Signature Date Printed Name and Credentials Clinical Instructor Signature Printed Name and Credentials
--- NOTE | 2018-11-30 16:43 | PT.OTN ---
Current Diagnoses Plantar fascial fibromatosis (11/30/18) Physical Therapy Treatment Note PT-OP-A Visit Information Start: 11/23/18 17:42 Freq: Status: Active Protocol: Document 11/30/18 16:00 DCW (Rec: 11/30/18 16:43 DCW [id number]) Out-Patient Physical Therapy Visit Information Visit Information Visit Type Treatment Note Visit Start Time 16:00 Visit Stop Time 16:45 Total Visit Minutes 45 Visit Number 2 Number of FRONT DESK RECEPTIONIST Visits 0 Evaluation Information Evaluation Date 11/23/18 PT-OP-B Current Condition Start: 11/23/18 17:42 Freq: Status: Active Protocol: Document 11/23/18 16:00 DCW (Rec: 11/23/18 18:15 DCW [id number]) Current Condition History of Current Condition Current Complaints Plantar surface pain, heel pain, Achilles pain History of Current Condition Pt reports a history of worsening Plantar fascial fibromatosis, which has resulted in multiple nodules along the plantar surface of her left foot. Pt notes that this has been causing pain off and on for years, and she has now been getting increased pain in her heel and Achilles tendon as well. Pt also notes that 8 weeks ago, she tripped and sprained her MCL, which has resulted in a decline in mobility and activity levels, and a recent increase in weight gait. Pt also notes that she has noticed the beginning of nodules on her right foot as well. Treatment Goals Patient/Caregiver Goals I just want to get the pain out of my foot. I want to be able to stand and function like a normal person. Prior Functional Status Baseline Function- ADL's Independent Baseline Function- Mobility Independent Current Functional Impairments (Reported) Functional Limitations- Mobility/Gait Pt unable to walk more than one hour without increased pain. Pt has increased pain with walking on hills. PT-OP-C Subjective Start: 11/23/18 17:42 Freq: Status: Active Protocol: Document 11/30/18 16:00 DCW (Rec: 11/30/18 16:43 DCW [id number]) OP-PT Subjective Patient Comments Patient Comments Pt reports he foot has been doing well, she has been following her HEP closely. Pt also notes that she hasn't had any heel pain all week. Patient Reported Progress Improving PT-OP-F Manual Assessment Start: 11/23/18 17:42 Freq: Status: Active Protocol: Document 11/23/18 16:00 DCW (Rec: 11/23/18 18:15 DCW [id number]) Manual Assessments Soft Tissue Assessment Soft Tissue Mobility Assessment Pt has two palpable nodules along plantar surface of right foot, near mid-arch and just before the ball of her foot below her second toe. Tenderness to palpation of left heel and achilles tendon 2/4: Pain with wincing. Tenderness to palpation of left Gastroc 3/4: Wincing and withdraw PT-OP-J Posture/Palpation/Skin Start: 11/23/18 17:42 Freq: Status: Active Protocol: Document 11/23/18 16:00 DCW (Rec: 11/23/18 18:15 DCW [id number]) Palpation Assessment Location Two Palpation Location Left Gastroc Palpation Findings Soft Tissue Tightness Spasm Tenderness One Palpation Location Left plantar surface Palpation Details Multiple nodules along flexor digitorum tendons PT-OP-K Range of Motion Start: 11/23/18 17:42 Freq: Status: Active Protocol: Document 11/23/18 16:00 DCW (Rec: 11/23/18 18:15 DCW [id number]) Ankle and Foot Goniometric Range of Motion Ankle and Foot Measured in Degrees Left Active Testing Position Sitting Plantarflexion 52 Inversion 35 Eversion 22 Ankle and Foot ROM Limitations Comments Left DF with knee flexed: AROM 3? from neutral, PROM 8? PT-OP-L Special Tests Start: 11/23/18 17:42 Freq: Status: Active Protocol: Document 11/23/18 16:00 DCW (Rec: 11/23/18 18:15 DCW [id number]) Special Tests Foot/Ankle Special Tests Post Tibiotalor Subluxation Test Results Negative Peroneal Subluxation Test Results Negative Anterior Draw Test Results Negative PT-OP-M Strength Start: 11/23/18 17:42 Freq: Status: Active Protocol: Document 11/23/18 16:00 DCW (Rec: 11/23/18 18:15 DCW [id number]) Ankle/Foot Strength Ankle and Foot Manual Muscle Testing Left Dorsiflexion (L4) 4 Good Plantarflexion (S1) 4- Good- Inversion 4 Good Eversion (S1) 4 Good PT-OP-Q Treatments Start: 11/23/18 17:42 Freq: Status: Active Protocol: Document 11/30/18 16:00 DCW (Rec: 11/30/18 16:43 DCW [id number]) Therapeutic Exercises Prone Exercises Calf Stretch Prone Exercise Name Calf Stretch - feet off table Side bilateral Comments Manual Sitting Exercises Intrinsic [place] Pick-up Sitting Exercise Name Intrinsic [place] Pick-up Side left Standing Exercises Heel Raises Standing Exercise Name SL Eccentric Heel Raises Side bilateral Reps/Minutes x15 Manual Therapy Treatment Soft Tissue Mobilization Gastroc STM Body Location B Gastroc Mobilization Type Cross-Friction Strain/Counterstrain Strumming Sustained Pressure Body Position Prone PT-OP-T Assessment and Plan Start: 11/23/18 17:42 Freq: Status: Active Protocol: Document 11/30/18 16:00 DCW (Rec: 11/30/18 16:43 DCW [id number]) Physical Therapy Assessment Impairments Impairments Functional Activities Gait Pain ROM Soft Tissue Mobility Strength Tone Goals Three Impairment Pt AROM DF limited to 3? from neutral Chcf Goal (LTG) Pt to exhibit 10? DF with knee flexed LTG Duration 01/23/19 Two Impairment Pt unable to walk more than one hour without pain Chcf Goal (LTG) Pt to walk two hours without increased pain to improve ability to shop independently. LTG Duration 01/23/19 One Impairment Pt does not have an appropriate home exercise program Short Term Goal (STG) Pt to be independent and complaint with an appropriate HEP STG Duration 12/23/18 Assessment Summary Assessment Pt already doing very well, no complaints of heel or foot pain over the last week. If pt continues to improve, she will likely do well with a reduction in PT frequency. Physical Therapy Plan Frequency and Duration Frequency of Treatment 2x/Week Duration of Treatment 10 weeks Plan of Care Start Date 11/23/18 Plan of Care End Date 02/01/19 Therapeutic Interventions Therapeutic Interventions Home Exercise Program Joint Mobilizations Manual Therapy Self-Care/Home Management Soft Tissue Mobilization Therapeutic Activities Therapeutic Exercises Modalities Cold Pack/Ice Massage Electric Stimulation Hot Packs Iontophoresis Ultrasound Other Therapeutic Interventions Iontophoresis /c Dexamethasone ; 4 mg/mL Next Visit Focus/Plan Next Note Type Treatment Note Next Visit Plan STM to heel and gastroc, ankle strengthening, calf flexibility, US/Ionto
--- NOTE | 2018-12-02 16:45 | PT.OTN ---
Current Diagnoses Plantar fascial fibromatosis (12/02/18) Physical Therapy Treatment Note PT-OP-A Visit Information Start: 11/23/18 17:42 Freq: Status: Active Protocol: Document 12/02/18 16:45 RCC (Rec: 12/02/18 17:42 RCC [id number]) Out-Patient Physical Therapy Visit Information Visit Information Visit Type Treatment Note Visit Start Time 16:45 Visit Stop Time 17:27 Total Visit Minutes 42 Visit Number 3 Number of MEAT CURER Visits 0 Evaluation Information Evaluation Date 11/23/18 PT-OP-B Current Condition Start: 11/23/18 17:42 Freq: Status: Active Protocol: Document 11/23/18 16:00 DCW (Rec: 11/23/18 18:15 DCW [id number]) Current Condition History of Current Condition Current Complaints Plantar surface pain, heel pain, Achilles pain History of Current Condition Pt reports a history of worsening Plantar fascial fibromatosis, which has resulted in multiple nodules along the plantar surface of her left foot. Pt notes that this has been causing pain off and on for years, and she has now been getting increased pain in her heel and Achilles tendon as well. Pt also notes that 8 weeks ago, she tripped and sprained her MCL, which has resulted in a decline in mobility and activity levels, and a recent increase in weight gait. Pt also notes that she has noticed the beginning of nodules on her right foot as well. Treatment Goals Patient/Caregiver Goals I just want to get the pain out of my foot. I want to be able to stand and function like a normal person. Prior Functional Status Baseline Function- ADL's Independent Baseline Function- Mobility Independent Current Functional Impairments (Reported) Functional Limitations- Mobility/Gait Pt unable to walk more than one hour without increased pain. Pt has increased pain with walking on hills. PT-OP-C Subjective Start: 11/23/18 17:42 Freq: Status: Active Protocol: Document 12/02/18 16:45 RCC (Rec: 12/02/18 17:42 RCC [id number]) OP-PT Subjective Patient Comments Patient Comments Pt reports compliance with HEP but eccentric heel raises were aggravating her R knee. PT-OP-F Manual Assessment Start: 11/23/18 17:42 Freq: Status: Active Protocol: Document 11/23/18 16:00 DCW (Rec: 11/23/18 18:15 DCW [id number]) Manual Assessments Soft Tissue Assessment Soft Tissue Mobility Assessment Pt has two palpable nodules along plantar surface of right foot, near mid-arch and just before the ball of her foot below her second toe. Tenderness to palpation of left heel and achilles tendon 2/4: Pain with wincing. Tenderness to palpation of left Gastroc 3/4: Wincing and withdraw PT-OP-J Posture/Palpation/Skin Start: 11/23/18 17:42 Freq: Status: Active Protocol: Document 11/23/18 16:00 DCW (Rec: 11/23/18 18:15 DCW [id number]) Palpation Assessment Location Two Palpation Location Left Gastroc Palpation Findings Soft Tissue Tightness Spasm Tenderness One Palpation Location Left plantar surface Palpation Details Multiple nodules along flexor digitorum tendons PT-OP-K Range of Motion Start: 11/23/18 17:42 Freq: Status: Active Protocol: Document 11/23/18 16:00 DCW (Rec: 11/23/18 18:15 DCW [id number]) Ankle and Foot Goniometric Range of Motion Ankle and Foot Measured in Degrees Left Active Testing Position Sitting Plantarflexion 52 Inversion 35 Eversion 22 Ankle and Foot ROM Limitations Comments Left DF with knee flexed: AROM 3? from neutral, PROM 8? PT-OP-L Special Tests Start: 11/23/18 17:42 Freq: Status: Active Protocol: Document 11/23/18 16:00 DCW (Rec: 11/23/18 18:15 DCW [id number]) Special Tests Foot/Ankle Special Tests Post Tibiotalor Subluxation Test Results Negative Peroneal Subluxation Test Results Negative Anterior Draw Test Results Negative PT-OP-M Strength Start: 11/23/18 17:42 Freq: Status: Active Protocol: Document 11/23/18 16:00 DCW (Rec: 11/23/18 18:15 DCW [id number]) Ankle/Foot Strength Ankle and Foot Manual Muscle Testing Left Dorsiflexion (L4) 4 Good Plantarflexion (S1) 4- Good- Inversion 4 Good Eversion (S1) 4 Good PT-OP-Q Treatments Start: 11/23/18 17:42 Freq: Status: Active Protocol: Document 12/02/18 16:45 RCC (Rec: 12/02/18 17:42 RCC [id number]) Therapeutic Exercises Prone Exercises Calf Stretch Prone Exercise Name Calf Stretch - feet off table Side bilateral Comments Manual- knee extended and flexed Standing Exercises soleus stretch Side bilateral Reps/Minutes x30 sec Heel Raises Standing Exercise Name SL Eccentric Heel Raises Side bilateral Reps/Minutes x10 Comments less weight shift to R d/t R knee pain Gastroc Stretch Standing Exercise Name Runner's Stretch Side bilateral Reps/Minutes x30 sec Manual Therapy Treatment Soft Tissue Mobilization Gastroc STM Body Location B Gastroc Mobilization Type Cross-Friction Strain/Counterstrain Strumming Sustained Pressure Body Position Prone PT-OP-T Assessment and Plan Start: 11/23/18 17:42 Freq: Status: Active Protocol: Document 12/02/18 16:45 RCC (Rec: 12/02/18 17:42 RCC [id number]) Physical Therapy Assessment Assessment Summary Assessment Pt able to tolerate eccentric heel raises with decreasing amount of weight shifted to the RLE. L>R tension throughout the gastroc. Pt given soleus stretch today due to tension/tightness when checked manually. Physical Therapy Plan Frequency and Duration Frequency of Treatment 2x/Week Duration of Treatment 10 weeks Plan of Care Start Date 11/23/18 Plan of Care End Date 02/01/19 Next Visit Focus/Plan Next Note Type Treatment Note Next Visit Plan cont. STR as tolerated, modalities for pain if needed.
--- NOTE | 2018-12-07 16:41 | PT.OTN ---
Current Diagnoses Plantar fascial fibromatosis (12/07/18) Physical Therapy Treatment Note PT-OP-A Visit Information Start: 11/23/18 17:42 Freq: Status: Active Protocol: Document 12/07/18 16:00 DCW (Rec: 12/07/18 16:41 DCW [id number]) Out-Patient Physical Therapy Visit Information Visit Information Visit Type Treatment Note Visit Start Time 16:00 Visit Stop Time 16:45 Total Visit Minutes 45 Visit Number 4 Number of HOGSHEAD ROLLER Visits 0 Evaluation Information Evaluation Date 11/23/18 PT-OP-B Current Condition Start: 11/23/18 17:42 Freq: Status: Active Protocol: Document 11/23/18 16:00 DCW (Rec: 11/23/18 18:15 DCW [id number]) Current Condition History of Current Condition Current Complaints Plantar surface pain, heel pain, Achilles pain History of Current Condition Pt reports a history of worsening Plantar fascial fibromatosis, which has resulted in multiple nodules along the plantar surface of her left foot. Pt notes that this has been causing pain off and on for years, and she has now been getting increased pain in her heel and Achilles tendon as well. Pt also notes that 8 weeks ago, she tripped and sprained her MCL, which has resulted in a decline in mobility and activity levels, and a recent increase in weight gait. Pt also notes that she has noticed the beginning of nodules on her right foot as well. Treatment Goals Patient/Caregiver Goals I just want to get the pain out of my foot. I want to be able to stand and function like a normal person. Prior Functional Status Baseline Function- ADL's Independent Baseline Function- Mobility Independent Current Functional Impairments (Reported) Functional Limitations- Mobility/Gait Pt unable to walk more than one hour without increased pain. Pt has increased pain with walking on hills. PT-OP-C Subjective Start: 11/23/18 17:42 Freq: Status: Active Protocol: Document 12/07/18 16:00 DCW (Rec: 12/07/18 16:41 DCW [id number]) OP-PT Subjective Patient Comments Patient Comments Pt reports she has noticed a drastic improvement since beginning therapy PT-OP-F Manual Assessment Start: 11/23/18 17:42 Freq: Status: Active Protocol: Document 11/23/18 16:00 DCW (Rec: 11/23/18 18:15 DCW [id number]) Manual Assessments Soft Tissue Assessment Soft Tissue Mobility Assessment Pt has two palpable nodules along plantar surface of right foot, near mid-arch and just before the ball of her foot below her second toe. Tenderness to palpation of left heel and achilles tendon 2/4: Pain with wincing. Tenderness to palpation of left Gastroc 3/4: Wincing and withdraw PT-OP-J Posture/Palpation/Skin Start: 11/23/18 17:42 Freq: Status: Active Protocol: Document 11/23/18 16:00 DCW (Rec: 11/23/18 18:15 DCW [id number]) Palpation Assessment Location Two Palpation Location Left Gastroc Palpation Findings Soft Tissue Tightness Spasm Tenderness One Palpation Location Left plantar surface Palpation Details Multiple nodules along flexor digitorum tendons PT-OP-K Range of Motion Start: 11/23/18 17:42 Freq: Status: Active Protocol: Document 11/23/18 16:00 DCW (Rec: 11/23/18 18:15 DCW [id number]) Ankle and Foot Goniometric Range of Motion Ankle and Foot Measured in Degrees Left Active Testing Position Sitting Plantarflexion 52 Inversion 35 Eversion 22 Ankle and Foot ROM Limitations Comments Left DF with knee flexed: AROM 3? from neutral, PROM 8? PT-OP-L Special Tests Start: 11/23/18 17:42 Freq: Status: Active Protocol: Document 11/23/18 16:00 DCW (Rec: 11/23/18 18:15 DCW [id number]) Special Tests Foot/Ankle Special Tests Post Tibiotalor Subluxation Test Results Negative Peroneal Subluxation Test Results Negative Anterior Draw Test Results Negative PT-OP-M Strength Start: 11/23/18 17:42 Freq: Status: Active Protocol: Document 11/23/18 16:00 DCW (Rec: 11/23/18 18:15 DCW [id number]) Ankle/Foot Strength Ankle and Foot Manual Muscle Testing Left Dorsiflexion (L4) 4 Good Plantarflexion (S1) 4- Good- Inversion 4 Good Eversion (S1) 4 Good PT-OP-Q Treatments Start: 11/23/18 17:42 Freq: Status: Active Protocol: Document 12/07/18 16:00 DCW (Rec: 12/07/18 16:41 DCW [id number]) Therapeutic Exercises Prone Exercises Calf Stretch Prone Exercise Name Calf Stretch - feet off table Side bilateral Comments Manual- knee extended and flexed Standing Exercises soleus stretch Standing Exercise Name Gastroc/Soleus Stretch Side bilateral Equipment Used ABIGAIL Reps/Minutes x30 sec Gastroc Stretch Standing Exercise Name Runner's Stretch Side bilateral Reps/Minutes x30 sec Manual Therapy Treatment Soft Tissue Mobilization Gastroc STM Body Location B Gastroc Mobilization Type Cross-Friction Strain/Counterstrain Strumming Sustained Pressure Body Position Prone PT-OP-T Assessment and Plan Start: 11/23/18 17:42 Freq: Status: Active Protocol: Document 12/07/18 16:00 DCW (Rec: 12/07/18 16:41 DCW [id number]) Physical Therapy Assessment Impairments Impairments Functional Activities Gait Pain ROM Soft Tissue Mobility Strength Tone Goals Three Impairment Pt AROM DF limited to 3? from neutral [facility] Goal (LTG) Pt to exhibit 10? DF with knee flexed LTG Duration 01/23/19 Two Impairment Pt unable to walk more than one hour without pain Law Reporter Goal (LTG) Pt to walk two hours without increased pain to improve ability to shop independently. LTG Duration 01/23/19 One Impairment Pt does not have an appropriate home exercise program Short Term Goal (STG) Pt to be independent and complaint with an appropriate HEP STG Duration 12/23/18 Assessment Summary Assessment Discussed with pt her current level of function. She reports she is very happy with how she has been feeling, and wants to discharge soon, so she has enough remaining authorized visits for when her knee gets addressed. Pt would like to cancel her next two visits, and keep an appointment in 1.5 weeks, just in case she is having any increased difficulty. Physical Therapy Plan Frequency and Duration Frequency of Treatment 2x/Week Duration of Treatment 10 weeks Plan of Care Start Date 11/23/18 Plan of Care End Date 02/01/19 Therapeutic Interventions Therapeutic Interventions Home Exercise Program Joint Mobilizations Manual Therapy Self-Care/Home Management Soft Tissue Mobilization Therapeutic Activities Therapeutic Exercises Modalities Cold Pack/Ice Massage Electric Stimulation Hot Packs Iontophoresis Ultrasound Other Therapeutic Interventions Iontophoresis /c Dexamethasone ; 4 mg/mL Next Visit Focus/Plan Next Note Type Treatment Note Next Visit Plan cont. STR as tolerated, modalities for pain if needed.
--- NOTE | 2018-12-16 16:00 | PT.OTN ---
Current Diagnoses Plantar fascial fibromatosis (12/16/18) Physical Therapy Treatment Note PT-OP-A Visit Information Start: 11/23/18 17:42 Freq: Status: Active Protocol: Document 12/16/18 16:00 [facility] (Rec: 12/18/18 12:43 [facility] [email or web address]) Out-Patient Physical Therapy Visit Information Visit Information Visit Type Treatment Note Visit Start Time 16:00 Visit Stop Time 16:40 Total Visit Minutes 40 Visit Number 5 Number of INK TECHNICIAN Visits 0 Evaluation Information Evaluation Date 11/23/18 PT-OP-B Current Condition Start: 11/23/18 17:42 Freq: Status: Active Protocol: Document 11/23/18 16:00 DCW (Rec: 11/23/18 18:15 DCW [id number]) Current Condition History of Current Condition Current Complaints Plantar surface pain, heel pain, Achilles pain History of Current Condition Pt reports a history of worsening Plantar fascial fibromatosis, which has resulted in multiple nodules along the plantar surface of her left foot. Pt notes that this has been causing pain off and on for years, and she has now been getting increased pain in her heel and Achilles tendon as well. Pt also notes that 8 weeks ago, she tripped and sprained her MCL, which has resulted in a decline in mobility and activity levels, and a recent increase in weight gait. Pt also notes that she has noticed the beginning of nodules on her right foot as well. Treatment Goals Patient/Caregiver Goals I just want to get the pain out of my foot. I want to be able to stand and function like a normal person. Prior Functional Status Baseline Function- ADL's Independent Baseline Function- Mobility Independent Current Functional Impairments (Reported) Functional Limitations- Mobility/Gait Pt unable to walk more than one hour without increased pain. Pt has increased pain with walking on hills. PT-OP-C Subjective Start: 11/23/18 17:42 Freq: Status: Active Protocol: Document 12/16/18 16:00 [facility] (Rec: 12/18/18 12:43 [facility] [email or web address]) OP-PT Subjective Patient Comments Patient Comments Pt reports that she sprained her ankle 2 days ago tripping over a hose, with her R foot twisting inward. She went to the urgent care in [place] and told to stay in a walking boot for 2 weeks. PT-OP-F Manual Assessment Start: 11/23/18 17:42 Freq: Status: Active Protocol: Document 11/23/18 16:00 DCW (Rec: 11/23/18 18:15 DCW [id number]) Manual Assessments Soft Tissue Assessment Soft Tissue Mobility Assessment Pt has two palpable nodules along plantar surface of right foot, near mid-arch and just before the ball of her foot below her second toe. Tenderness to palpation of left heel and achilles tendon 2/4: Pain with wincing. Tenderness to palpation of left Gastroc 3/4: Wincing and withdraw PT-OP-J Posture/Palpation/Skin Start: 11/23/18 17:42 Freq: Status: Active Protocol: Document 12/16/18 16:00 [facility] (Rec: 12/18/18 12:43 [facility] [id number]) Skin Assessment Other Assessments Skin Assessment Comments moderate swelling R lateral ankle, posterior ankle and forefoot PT-OP-K Range of Motion Start: 11/23/18 17:42 Freq: Status: Active Protocol: Document 11/23/18 16:00 DCW (Rec: 11/23/18 18:15 DCW [id number]) Ankle and Foot Goniometric Range of Motion Ankle and Foot Measured in Degrees Left Active Testing Position Sitting Plantarflexion 52 Inversion 35 Eversion 22 Ankle and Foot ROM Limitations Comments Left DF with knee flexed: AROM 3? from neutral, PROM 8? PT-OP-L Special Tests Start: 11/23/18 17:42 Freq: Status: Active Protocol: Document 11/23/18 16:00 DCW (Rec: 11/23/18 18:15 DCW [id number]) Special Tests Foot/Ankle Special Tests Post Tibiotalor Subluxation Test Results Negative Peroneal Subluxation Test Results Negative Anterior Draw Test Results Negative PT-OP-M Strength Start: 11/23/18 17:42 Freq: Status: Active Protocol: Document 11/23/18 16:00 DCW (Rec: 11/23/18 18:15 DCW [id number]) Ankle/Foot Strength Ankle and Foot Manual Muscle Testing Left Dorsiflexion (L4) 4 Good Plantarflexion (S1) 4- Good- Inversion 4 Good Eversion (S1) 4 Good PT-OP-Q Treatments Start: 11/23/18 17:42 Freq: Status: Active Protocol: Document 12/16/18 16:00 [facility] (Rec: 12/18/18 12:43 RCC [id number]) Therapeutic Exercises Prone Exercises Calf Stretch Prone Exercise Name Calf Stretch - feet off table Side bilateral Comments Manual- knee extended and flexed Sitting Exercises ABCs Side right Reps/Minutes x1 for ROM gastroc stretch Side bilateral Manual Therapy Treatment Soft Tissue Mobilization Gastroc STM Body Location B Gastroc Mobilization Type Cross-Friction Strain/Counterstrain Strumming Sustained Pressure Body Position Prone Taping R ankle Body Location R ankle Treatment Focus edema management Type of Tape Kinesio Tape Skin Inspection intact Comments 2 Fan strips R lateral forefoot and ankle for swelling PT-OP-T Assessment and Plan Start: 11/23/18 17:42 Freq: Status: Active Protocol: Document 12/16/18 16:00 [facility] (Rec: 12/18/18 12:43 [facility] [id number]) Physical Therapy Assessment Assessment Summary Assessment Pt presents with increased R foot and ankle swelling secondary to R ankle inversion sprain (pt reports radiographs were negative for fx). We do not have a referral for R ankle at the time of this session, but R gastroc with more pain and tonicity compared to the L and swelling and being in a walking boot significantly affecting her R ankle ROM. Pt was appearing to be close to d/c prior to this recent ankle sprain, and expect due to swelling pain, and immobility for at least 2 weeks in walking boot, she will require further skilled physical therapy to return to her prior level of function. Physical Therapy Plan Frequency and Duration Frequency of Treatment 2x/Week Duration of Treatment 10 weeks Plan of Care Start Date 11/23/18 Plan of Care End Date 02/01/19 Next Visit Focus/Plan Next Note Type Treatment Note Next Visit Plan modalities for swelling and pain, ABCs/ROM of R ankle. May need to reassess obj measures if new referral
--- NOTE | 2018-12-21 17:26 | PT.OTN ---
Current Diagnoses Plantar fascial fibromatosis (12/21/18) Physical Therapy Treatment Note PT-OP-A Visit Information Start: 11/23/18 17:42 Freq: Status: Active Protocol: Document 12/21/18 16:06 [facility] (Rec: 12/21/18 16:50 [facility] [id number]) Out-Patient Physical Therapy Visit Information Visit Information Visit Type Treatment Note Visit Start Time 16:00 Visit Stop Time 16:40 Total Visit Minutes 40 Visit Number 6 Number of PRIMARY TEACHING ASSISTANT Visits 0 PT-OP-B Current Condition Start: 11/23/18 17:42 Freq: Status: Active Protocol: Document 11/23/18 16:00 DCW (Rec: 11/23/18 18:15 DCW [id number]) Current Condition History of Current Condition Current Complaints Plantar surface pain, heel pain, Achilles pain History of Current Condition Pt reports a history of worsening Plantar fascial fibromatosis, which has resulted in multiple nodules along the plantar surface of her left foot. Pt notes that this has been causing pain off and on for years, and she has now been getting increased pain in her heel and Achilles tendon as well. Pt also notes that 8 weeks ago, she tripped and sprained her MCL, which has resulted in a decline in mobility and activity levels, and a recent increase in weight gait. Pt also notes that she has noticed the beginning of nodules on her right foot as well. Treatment Goals Patient/Caregiver Goals I just want to get the pain out of my foot. I want to be able to stand and function like a normal person. Prior Functional Status Baseline Function- ADL's Independent Baseline Function- Mobility Independent Current Functional Impairments (Reported) Functional Limitations- Mobility/Gait Pt unable to walk more than one hour without increased pain. Pt has increased pain with walking on hills. PT-OP-C Subjective Start: 11/23/18 17:42 Freq: Status: Active Protocol: Document 12/21/18 16:06 [facility] (Rec: 12/21/18 16:50 [facility] [id number]) OP-PT Subjective Patient Comments Patient Comments Reports she has been doing her exercises and that helps plantar fascia PT-OP-F Manual Assessment Start: 11/23/18 17:42 Freq: Status: Active Protocol: Document 11/23/18 16:00 DCW (Rec: 11/23/18 18:15 DCW [id number]) Manual Assessments Soft Tissue Assessment Soft Tissue Mobility Assessment Pt has two palpable nodules along plantar surface of right foot, near mid-arch and just before the ball of her foot below her second toe. Tenderness to palpation of left heel and achilles tendon 2/4: Pain with wincing. Tenderness to palpation of left Gastroc 3/4: Wincing and withdraw PT-OP-J Posture/Palpation/Skin Start: 11/23/18 17:42 Freq: Status: Active Protocol: Document 12/16/18 16:00 [facility] (Rec: 12/18/18 12:43 RCC [email or web address]) Skin Assessment Other Assessments Skin Assessment Comments moderate swelling R lateral ankle, posterior ankle and forefoot PT-OP-K Range of Motion Start: 11/23/18 17:42 Freq: Status: Active Protocol: Document 11/23/18 16:00 DCW (Rec: 11/23/18 18:15 DCW [id number]) Ankle and Foot Goniometric Range of Motion Ankle and Foot Measured in Degrees Left Active Testing Position Sitting Plantarflexion 52 Inversion 35 Eversion 22 Ankle and Foot ROM Limitations Comments Left DF with knee flexed: AROM 3? from neutral, PROM 8? PT-OP-L Special Tests Start: 11/23/18 17:42 Freq: Status: Active Protocol: Document 11/23/18 16:00 DCW (Rec: 11/23/18 18:15 DCW [id number]) Special Tests Foot/Ankle Special Tests Post Tibiotalor Subluxation Test Results Negative Peroneal Subluxation Test Results Negative Anterior Draw Test Results Negative PT-OP-M Strength Start: 11/23/18 17:42 Freq: Status: Active Protocol: Document 11/23/18 16:00 DCW (Rec: 11/23/18 18:15 DCW [id number]) Ankle/Foot Strength Ankle and Foot Manual Muscle Testing Left Dorsiflexion (L4) 4 Good Plantarflexion (S1) 4- Good- Inversion 4 Good Eversion (S1) 4 Good PT-OP-Q Treatments Start: 11/23/18 17:42 Freq: Status: Active Protocol: Document 12/21/18 16:06 [facility] (Rec: 12/21/18 16:50 LR [id number]) Therapeutic Exercises Sitting Exercises plantar fascia stretch Sitting Exercise Name plantar fascia stretch Side bilateral Reps/Minutes 30 sec ABCs Side bilateral Reps/Minutes x1 for ROM gastroc stretch Sitting Exercise Name active DF stretch Side bilateral Reps/Minutes 30 sec Gait Training Gait Activity walking Description work on smaller steps & more even stepping in mirror Manual Therapy Treatment Soft Tissue Mobilization plantar fascia Body Location L Mobilization Type Rolling Gastroc STM Body Location B Gastroc Mobilization Type Cross-Friction Strain/Counterstrain Strumming Sustained Pressure Body Position Prone Self-Care/Home Management Treatment Activities Self-Care/Home Management Activities Trying on blue and green orthotics and pt reported feeling better with blue and both options of superfeet improved foot position. Edu to wait until out of boot to fully decide. Edu on importance of stretch & exercise PT-OP-T Assessment and Plan Start: 11/23/18 17:42 Freq: Status: Active Protocol: Document 12/21/18 16:06 [facility] (Rec: 12/21/18 16:50 [facility] [id number]) Physical Therapy Assessment Goals Three Impairment Pt AROM DF limited to 3? from neutral Behavioral Scientist Goal (LTG) Pt to exhibit 10? DF with knee flexed LTG Duration 01/23/19 Two Impairment Pt unable to walk more than one hour without pain Senior Care Goal (LTG) Pt to walk two hours without increased pain to improve ability to shop independently. LTG Duration 01/23/19 One Impairment Pt does not have an appropriate home exercise program Short Term Goal (STG) Pt to be independent and complaint with an appropriate HEP STG Duration 12/23/18 Assessment Summary Assessment Pt was able to tolerate stretching without inc pain. She was able to improve gait with use of mirror and dec side lean with boot. She requried ceuing for smaller and more even steps with less lat lean of trunk. She had feeling of inc support with use of super feet and may benefit from orthotics after boot is off. Physical Therapy Plan Frequency and Duration Frequency of Treatment 2x/Week Duration of Treatment 10 weeks Plan of Care Start Date 11/23/18 Plan of Care End Date 02/01/19 Next Visit Focus/Plan Next Note Type Treatment Note Next Visit Plan modalities for swelling and pain, ABCs/ROM of R ankle. May need to reassess obj measures if new referral
--- NOTE | 2018-12-23 16:05 | PT.OTN ---
Current Diagnoses Plantar fascial fibromatosis (12/23/18) Physical Therapy Treatment Note PT-OP-A Visit Information Start: 11/23/18 17:42 Freq: Status: Active Protocol: Document 12/23/18 16:05 RCC (Rec: 12/23/18 17:54 RCC [email or web address]) Out-Patient Physical Therapy Visit Information Visit Information Visit Type Treatment Note Visit Start Time 16:05 Visit Stop Time 16:45 Total Visit Minutes 40 Visit Number 7 Number of SOFTWARE SYSTEMS ARCHITECT Visits 0 Evaluation Information Evaluation Date 11/23/18 PT-OP-B Current Condition Start: 11/23/18 17:42 Freq: Status: Active Protocol: Document 11/23/18 16:00 DCW (Rec: 11/23/18 18:15 DCW [id number]) Current Condition History of Current Condition Current Complaints Plantar surface pain, heel pain, Achilles pain History of Current Condition Pt reports a history of worsening Plantar fascial fibromatosis, which has resulted in multiple nodules along the plantar surface of her left foot. Pt notes that this has been causing pain off and on for years, and she has now been getting increased pain in her heel and Achilles tendon as well. Pt also notes that 8 weeks ago, she tripped and sprained her MCL, which has resulted in a decline in mobility and activity levels, and a recent increase in weight gait. Pt also notes that she has noticed the beginning of nodules on her right foot as well. Treatment Goals Patient/Caregiver Goals I just want to get the pain out of my foot. I want to be able to stand and function like a normal person. Prior Functional Status Baseline Function- ADL's Independent Baseline Function- Mobility Independent Current Functional Impairments (Reported) Functional Limitations- Mobility/Gait Pt unable to walk more than one hour without increased pain. Pt has increased pain with walking on hills. PT-OP-C Subjective Start: 11/23/18 17:42 Freq: Status: Active Protocol: Document 12/23/18 16:05 RCC (Rec: 12/23/18 17:54 RCC [email or web address]) OP-PT Subjective Patient Comments Patient Comments Pt c/o L sided shooting pain into the lateral foot/ankle and calf. PT-OP-F Manual Assessment Start: 11/23/18 17:42 Freq: Status: Active Protocol: Document 11/23/18 16:00 DCW (Rec: 11/23/18 18:15 DCW [id number]) Manual Assessments Soft Tissue Assessment Soft Tissue Mobility Assessment Pt has two palpable nodules along plantar surface of right foot, near mid-arch and just before the ball of her foot below her second toe. Tenderness to palpation of left heel and achilles tendon 2/4: Pain with wincing. Tenderness to palpation of left Gastroc 3/4: Wincing and withdraw PT-OP-J Posture/Palpation/Skin Start: 11/23/18 17:42 Freq: Status: Active Protocol: Document 12/16/18 16:00 RCC (Rec: 12/18/18 12:43 RCC [email or web address]) Skin Assessment Other Assessments Skin Assessment Comments moderate swelling R lateral ankle, posterior ankle and forefoot PT-OP-K Range of Motion Start: 11/23/18 17:42 Freq: Status: Active Protocol: Document 11/23/18 16:00 DCW (Rec: 11/23/18 18:15 DCW [id number]) Ankle and Foot Goniometric Range of Motion Ankle and Foot Measured in Degrees Left Active Testing Position Sitting Plantarflexion 52 Inversion 35 Eversion 22 Ankle and Foot ROM Limitations Comments Left DF with knee flexed: AROM 3? from neutral, PROM 8? PT-OP-L Special Tests Start: 11/23/18 17:42 Freq: Status: Active Protocol: Document 11/23/18 16:00 DCW (Rec: 11/23/18 18:15 DCW [id number]) Special Tests Foot/Ankle Special Tests Post Tibiotalor Subluxation Test Results Negative Peroneal Subluxation Test Results Negative Anterior Draw Test Results Negative PT-OP-M Strength Start: 11/23/18 17:42 Freq: Status: Active Protocol: Document 11/23/18 16:00 DCW (Rec: 11/23/18 18:15 DCW [id number]) Ankle/Foot Strength Ankle and Foot Manual Muscle Testing Left Dorsiflexion (L4) 4 Good Plantarflexion (S1) 4- Good- Inversion 4 Good Eversion (S1) 4 Good PT-OP-Q Treatments Start: 11/23/18 17:42 Freq: Status: Active Protocol: Document 12/23/18 16:05 RCC (Rec: 12/23/18 17:54 RCC [email or web address]) Therapeutic Exercises Prone Exercises Calf Stretch Prone Exercise Name Calf Stretch - feet off table Side bilateral Comments Manual- knee extended and flexed Sitting Exercises sciatic nerve glide Side left Comments tensioner- x10 plantar fascia stretch Sitting Exercise Name plantar fascia stretch Side bilateral Reps/Minutes 30 sec ABCs Side bilateral Reps/Minutes x1 for ROM gastroc stretch Sitting Exercise Name active DF stretch Side bilateral Reps/Minutes 30 sec Manual Therapy Treatment Soft Tissue Mobilization plantar fascia Body Location L Mobilization Type Rolling Intensity/Depth Moderate Body Position Prone Gastroc STM Body Location B Gastroc Mobilization Type Cross-Friction Strain/Counterstrain Strumming Sustained Pressure Body Position Prone Taping R ankle Body Location R ankle Treatment Focus edema management Type of Tape Kinesio Tape Skin Inspection intact Comments 2 Fan strips R lateral forefoot and ankle for swelling PT-OP-T Assessment and Plan Start: 11/23/18 17:42 Freq: Status: Active Protocol: Document 12/23/18 16:05 RCC (Rec: 12/23/18 17:54 RCC [email or web address]) Physical Therapy Assessment Assessment Summary Assessment Pt with (+) sciatic nerve tension with slump testing today, and given her h/o L4/5 injury to low back, her pain shooting to the L foot/ankle likely related to nerve tension (able to reproduce same pain pt was reporting). Pt's pain likely exacerbated due to using walking boot on the R foot/ankle. Recommended L shoe lift. Physical Therapy Plan Frequency and Duration Frequency of Treatment 2x/Week Duration of Treatment 10 weeks Plan of Care Start Date 11/23/18 Plan of Care End Date 02/01/19 Next Visit Focus/Plan Next Note Type Treatment Note Next Visit Plan cont ankle ROM and flexibility , gait training as tolerated if boot off
--- NOTE | 2019-01-05 19:22 | PT.OTN ---
Current Diagnoses Plantar fascial fibromatosis (01/05/19) Physical Therapy Treatment Note PT-OP-A Visit Information Start: 11/23/18 17:42 Freq: Status: Active Protocol: Document 01/05/19 16:00 HH (Rec: 01/05/19 19:21 HH [email or web address]) Out-Patient Physical Therapy Visit Information Visit Information Visit Type Treatment Note Visit Start Time 16:00 Visit Stop Time 16:55 Total Visit Minutes 55 Visit Number 8 Number of AUTOMOTIVE DESIGN DRAFTER Visits 0 PT-OP-B Current Condition Start: 11/23/18 17:42 Freq: Status: Active Protocol: Document 11/23/18 16:00 DCW (Rec: 11/23/18 18:15 DCW [id number]) Current Condition History of Current Condition Current Complaints Plantar surface pain, heel pain, Achilles pain History of Current Condition Pt reports a history of worsening Plantar fascial fibromatosis, which has resulted in multiple nodules along the plantar surface of her left foot. Pt notes that this has been causing pain off and on for years, and she has now been getting increased pain in her heel and Achilles tendon as well. Pt also notes that 8 weeks ago, she tripped and sprained her MCL, which has resulted in a decline in mobility and activity levels, and a recent increase in weight gait. Pt also notes that she has noticed the beginning of nodules on her right foot as well. Treatment Goals Patient/Caregiver Goals I just want to get the pain out of my foot. I want to be able to stand and function like a normal person. Prior Functional Status Baseline Function- ADL's Independent Baseline Function- Mobility Independent Current Functional Impairments (Reported) Functional Limitations- Mobility/Gait Pt unable to walk more than one hour without increased pain. Pt has increased pain with walking on hills. PT-OP-C Subjective Start: 11/23/18 17:42 Freq: Status: Active Protocol: Document 01/05/19 16:00 HH (Rec: 01/05/19 19:21 HH [email or web address]) OP-PT Subjective Patient Comments Patient Comments My heel is very sore i think i overwork myself yesterday from yardwork. PT-OP-F Manual Assessment Start: 11/23/18 17:42 Freq: Status: Active Protocol: Document 11/23/18 16:00 DCW (Rec: 11/23/18 18:15 DCW [id number]) Manual Assessments Soft Tissue Assessment Soft Tissue Mobility Assessment Pt has two palpable nodules along plantar surface of right foot, near mid-arch and just before the ball of her foot below her second toe. Tenderness to palpation of left heel and achilles tendon 2/4: Pain with wincing. Tenderness to palpation of left Gastroc 3/4: Wincing and withdraw PT-OP-J Posture/Palpation/Skin Start: 11/23/18 17:42 Freq: Status: Active Protocol: Document 12/16/18 16:00 RCC (Rec: 12/18/18 12:43 RCC [email or web address]) Skin Assessment Other Assessments Skin Assessment Comments moderate swelling R lateral ankle, posterior ankle and forefoot PT-OP-K Range of Motion Start: 11/23/18 17:42 Freq: Status: Active Protocol: Document 11/23/18 16:00 DCW (Rec: 11/23/18 18:15 DCW [id number]) Ankle and Foot Goniometric Range of Motion Ankle and Foot Measured in Degrees Left Active Testing Position Sitting Plantarflexion 52 Inversion 35 Eversion 22 Ankle and Foot ROM Limitations Comments Left DF with knee flexed: AROM 3? from neutral, PROM 8? PT-OP-L Special Tests Start: 11/23/18 17:42 Freq: Status: Active Protocol: Document 11/23/18 16:00 DCW (Rec: 11/23/18 18:15 DCW [id number]) Special Tests Foot/Ankle Special Tests Post Tibiotalor Subluxation Test Results Negative Peroneal Subluxation Test Results Negative Anterior Draw Test Results Negative PT-OP-M Strength Start: 11/23/18 17:42 Freq: Status: Active Protocol: Document 11/23/18 16:00 DCW (Rec: 11/23/18 18:15 DCW [id number]) Ankle/Foot Strength Ankle and Foot Manual Muscle Testing Left Dorsiflexion (L4) 4 Good Plantarflexion (S1) 4- Good- Inversion 4 Good Eversion (S1) 4 Good PT-OP-Q Treatments Start: 11/23/18 17:42 Freq: Status: Active Protocol: Document 01/05/19 16:00 HH (Rec: 01/05/19 19:21 HH [email or web address]) Therapeutic Exercises Supine Exercises supine ppT Side bilateral Reps/Minutes 10 x 2 Comments cues for PPT bridging Side bilateral Reps/Minutes 10 x2 Comments cues for PPT sciatic nerve glide Supine Exercise Name hip at 90 flexion Side left Reps/Minutes 10 x4 Comments add knee ext and ankle DF Standing Exercises hurdles step over Side bilateral Equipment Used hurdles Reps/Minutes 5 mins Comments cues for heel strike single leg stance Standing Exercise Name ground, green foam and blue foam Equipment Used ground, green foam and blue foam Reps/Minutes 10s x 5 Comments SLS Heel Raises Standing Exercise Name active DF stretch and eccentric DF Side bilateral Equipment Used on stair Reps/Minutes 10 x4 Other Exercises cat camel Side bilateral Reps/Minutes 12 reps Comments cues for PPT Manual Therapy Treatment Soft Tissue Mobilization plantar fascia Body Location L Mobilization Type Rolling Intensity/Depth Moderate Body Position Prone Gastroc STM Body Location B Gastroc Mobilization Type Cross-Friction Strain/Counterstrain Strumming Sustained Pressure Body Position Prone Self-Care/Home Management Treatment Education Patient Education Home Exercise Program Other Education with calf raise on stair, single leg stance and sciatic nerve glide PT-OP-T Assessment and Plan Start: 11/23/18 17:42 Freq: Status: Active Protocol: Document 01/05/19 16:00 (Rec: 01/05/19 19:21 [email or web address]) Physical Therapy Assessment Goals Three Impairment Pt AROM DF limited to 3? from neutral Detention Goal (LTG) Pt to exhibit 10? DF with knee flexed LTG Duration 01/23/19 Two Impairment Pt unable to walk more than one hour without pain Inventory Management Specialist Goal (LTG) Pt to walk two hours without increased pain to improve ability to shop independently. LTG Duration 01/23/19 One Impairment Pt does not have an appropriate home exercise program Short Term Goal (STG) Pt to be independent and complaint with an appropriate HEP STG Duration 12/23/18 Assessment Summary Assessment pt presents good ankle flexibility but lack of ankle stability and strength. She cont present antalgic gait with lack of heel strike on L. She loree tx well today focusing on gait training with hurdles, nervew glide and calf strengthening Physical Therapy Plan Next Visit Focus/Plan Next Note Type Treatment Note Next Visit Plan cont ankle ROM and strengtehning as loree , single leg stance , gait training as tolerated if boot off
--- NOTE | 2019-01-07 15:56 | PT.OTN ---
Current Diagnoses Plantar fascial fibromatosis (01/07/19) Physical Therapy Treatment Note PT-OP-A Visit Information Start: 11/23/18 17:42 Freq: Status: Active Protocol: Document 01/07/19 15:15 DCW (Rec: 01/07/19 15:56 DCW [id number]) Out-Patient Physical Therapy Visit Information Visit Information Visit Type Treatment Note Visit Start Time 15:15 Visit Stop Time 16:00 Total Visit Minutes 45 Visit Number 9 Number of BRANCH OPERATION EVALUATION MANAGER Visits 0 Evaluation Information Evaluation Date 11/23/18 PT-OP-B Current Condition Start: 11/23/18 17:42 Freq: Status: Active Protocol: Document 11/23/18 16:00 DCW (Rec: 11/23/18 18:15 DCW [id number]) Current Condition History of Current Condition Current Complaints Plantar surface pain, heel pain, Achilles pain History of Current Condition Pt reports a history of worsening Plantar fascial fibromatosis, which has resulted in multiple nodules along the plantar surface of her left foot. Pt notes that this has been causing pain off and on for years, and she has now been getting increased pain in her heel and Achilles tendon as well. Pt also notes that 8 weeks ago, she tripped and sprained her MCL, which has resulted in a decline in mobility and activity levels, and a recent increase in weight gait. Pt also notes that she has noticed the beginning of nodules on her right foot as well. Treatment Goals Patient/Caregiver Goals I just want to get the pain out of my foot. I want to be able to stand and function like a normal person. Prior Functional Status Baseline Function- ADL's Independent Baseline Function- Mobility Independent Current Functional Impairments (Reported) Functional Limitations- Mobility/Gait Pt unable to walk more than one hour without increased pain. Pt has increased pain with walking on hills. PT-OP-C Subjective Start: 11/23/18 17:42 Freq: Status: Active Protocol: Document 01/07/19 15:15 DCW (Rec: 01/07/19 15:56 DCW [id number]) OP-PT Subjective Patient Comments Patient Comments Pt notes that the bottom of her feet are improving, and her ankle is feeling better after her sprain. She is now mostly having pain in the achilles tendon area of her left area. PT-OP-F Manual Assessment Start: 11/23/18 17:42 Freq: Status: Active Protocol: Document 11/23/18 16:00 DCW (Rec: 11/23/18 18:15 DCW [id number]) Manual Assessments Soft Tissue Assessment Soft Tissue Mobility Assessment Pt has two palpable nodules along plantar surface of right foot, near mid-arch and just before the ball of her foot below her second toe. Tenderness to palpation of left heel and achilles tendon 2/4: Pain with wincing. Tenderness to palpation of left Gastroc 3/4: Wincing and withdraw PT-OP-J Posture/Palpation/Skin Start: 11/23/18 17:42 Freq: Status: Active Protocol: Document 12/16/18 16:00 RCC (Rec: 12/18/18 12:43 RCC [email or web address]) Skin Assessment Other Assessments Skin Assessment Comments moderate swelling R lateral ankle, posterior ankle and forefoot PT-OP-K Range of Motion Start: 11/23/18 17:42 Freq: Status: Active Protocol: Document 11/23/18 16:00 DCW (Rec: 11/23/18 18:15 DCW [id number]) Ankle and Foot Goniometric Range of Motion Ankle and Foot Left Active Testing Position Sitting Plantarflexion 52 Inversion 35 Eversion 22 Ankle and Foot ROM Limitations Comments Left DF with knee flexed: AROM 3? from neutral, PROM 8? PT-OP-L Special Tests Start: 11/23/18 17:42 Freq: Status: Active Protocol: Document 11/23/18 16:00 DCW (Rec: 11/23/18 18:15 DCW [id number]) Special Tests Foot/Ankle Special Tests Post Tibiotalor Subluxation Test Results Negative Peroneal Subluxation Test Results Negative Anterior Draw Test Results Negative PT-OP-M Strength Start: 11/23/18 17:42 Freq: Status: Active Protocol: Document 11/23/18 16:00 DCW (Rec: 11/23/18 18:15 DCW [id number]) Ankle/Foot Strength Ankle and Foot Manual Muscle Testing Left Dorsiflexion (L4) 4 Good Plantarflexion (S1) 4- Good- Inversion 4 Good Eversion (S1) 4 Good PT-OP-Q Treatments Start: 11/23/18 17:42 Freq: Status: Active Protocol: Document 01/07/19 15:15 DCW (Rec: 01/07/19 15:56 DCW [id number]) Therapeutic Exercises Standing Exercises hurdles step over Side bilateral Equipment Used hurdles Reps/Minutes 5 mins Comments cues for heel strike single leg stance Standing Exercise Name ground, blue foam Equipment Used ground, green foam and blue foam Reps/Minutes 10s x 5 Comments SLS Heel Raises Standing Exercise Name active DF stretch and eccentric DF Side bilateral Equipment Used on stair Reps/Minutes 10 x4 Manual Therapy Treatment Soft Tissue Mobilization plantar fascia Body Location L Mobilization Type Rolling Intensity/Depth Moderate Body Position Sitting Gastroc STM Body Location B Gastroc Mobilization Type Cross-Friction Strain/Counterstrain Strumming Sustained Pressure Body Position Sitting Taping R ankle Body Location R ankle Treatment Focus edema management Type of Tape Kinesio Tape Skin Inspection intact Comments 2 Fan strips R lateral forefoot and ankle for swelling PT-OP-T Assessment and Plan Start: 11/23/18 17:42 Freq: Status: Active Protocol: Document 01/07/19 15:15 DCW (Rec: 01/07/19 15:56 DCW [id number]) Physical Therapy Assessment Goals Three Impairment Pt AROM DF limited to 3? from neutral Penitentiary Goal (LTG) Pt to exhibit 10? DF with knee flexed LTG Duration 01/23/19 Two Impairment Pt unable to walk more than one hour without pain Penitentiary Goal (LTG) Pt to walk two hours without increased pain to improve ability to shop independently. LTG Duration 01/23/19 One Impairment Pt does not have an appropriate home exercise program Short Term Goal (STG) Pt to be independent and complaint with an appropriate HEP STG Duration 12/23/18 Assessment Summary Assessment Pt continues to demonstrate decreased ankle strength and stability, however is improving, especially with her ankle pain and her heel-toe gait pattern. Physical Therapy Plan Frequency and Duration Frequency of Treatment 2x/Week Duration of Treatment 10 weeks Plan of Care Start Date 11/23/18 Plan of Care End Date 02/01/19 Next Visit Focus/Plan Next Note Type Treatment Note Next Visit Plan cont ankle ROM and flexibility , gait training as tolerated if boot off
--- NOTE | 2019-01-20 18:08 | PT.OTN ---
Current Diagnoses Plantar fascial fibromatosis (01/20/19) Physical Therapy Treatment Note PT-OP-A Visit Information Start: 11/23/18 17:42 Freq: Status: Active Protocol: Document 01/20/19 17:42 [facility] (Rec: 01/20/19 18:08 [facility] [id number]) Out-Patient Physical Therapy Visit Information Visit Information Visit Type Treatment Note Visit Start Time 16:45 Visit Stop Time 17:30 Total Visit Minutes 45 Visit Number 10 Number of LAST TURNER Visits 0 PT-OP-B Current Condition Start: 11/23/18 17:42 Freq: Status: Active Protocol: Document 11/23/18 16:00 DCW (Rec: 11/23/18 18:15 DCW [id number]) Current Condition History of Current Condition Current Complaints Plantar surface pain, heel pain, Achilles pain History of Current Condition Pt reports a history of worsening Plantar fascial fibromatosis, which has resulted in multiple nodules along the plantar surface of her left foot. Pt notes that this has been causing pain off and on for years, and she has now been getting increased pain in her heel and Achilles tendon as well. Pt also notes that 8 weeks ago, she tripped and sprained her MCL, which has resulted in a decline in mobility and activity levels, and a recent increase in weight gait. Pt also notes that she has noticed the beginning of nodules on her right foot as well. Treatment Goals Patient/Caregiver Goals I just want to get the pain out of my foot. I want to be able to stand and function like a normal person. Prior Functional Status Baseline Function- ADL's Independent Baseline Function- Mobility Independent Current Functional Impairments (Reported) Functional Limitations- Mobility/Gait Pt unable to walk more than one hour without increased pain. Pt has increased pain with walking on hills. PT-OP-C Subjective Start: 11/23/18 17:42 Freq: Status: Active Protocol: Document 01/20/19 17:42 [facility] (Rec: 01/20/19 18:08 [facility] [id number]) OP-PT Subjective Patient Comments Patient Comments Pt reports she hasn't been wearing her knee brace d/t it bothering her. She got a blood transfusion and feels much better w/her energy PT-OP-F Manual Assessment Start: 11/23/18 17:42 Freq: Status: Active Protocol: Document 11/23/18 16:00 DCW (Rec: 11/23/18 18:15 DCW [id number]) Manual Assessments Soft Tissue Assessment Soft Tissue Mobility Assessment Pt has two palpable nodules along plantar surface of right foot, near mid-arch and just before the ball of her foot below her second toe. Tenderness to palpation of left heel and achilles tendon 2/4: Pain with wincing. Tenderness to palpation of left Gastroc 3/4: Wincing and withdraw PT-OP-J Posture/Palpation/Skin Start: 11/23/18 17:42 Freq: Status: Active Protocol: Document 12/16/18 16:00 [facility] (Rec: 12/18/18 12:43 [facility] [id number]) Skin Assessment Other Assessments Skin Assessment Comments moderate swelling R lateral ankle, posterior ankle and forefoot PT-OP-K Range of Motion Start: 11/23/18 17:42 Freq: Status: Active Protocol: Document 11/23/18 16:00 DCW (Rec: 11/23/18 18:15 DCW [id number]) Ankle and Foot Goniometric Range of Motion Ankle and Foot Left Active Testing Position Sitting Plantarflexion 52 Inversion 35 Eversion 22 Ankle and Foot ROM Limitations Comments Left DF with knee flexed: AROM 3? from neutral, PROM 8? PT-OP-L Special Tests Start: 11/23/18 17:42 Freq: Status: Active Protocol: Document 11/23/18 16:00 DCW (Rec: 11/23/18 18:15 DCW [id number]) Special Tests Foot/Ankle Special Tests Post Tibiotalor Subluxation Test Results Negative Peroneal Subluxation Test Results Negative Anterior Draw Test Results Negative PT-OP-M Strength Start: 11/23/18 17:42 Freq: Status: Active Protocol: Document 11/23/18 16:00 DCW (Rec: 11/23/18 18:15 DCW [id number]) Ankle/Foot Strength Ankle and Foot Manual Muscle Testing Left Dorsiflexion (L4) 4 Good Plantarflexion (S1) 4- Good- Inversion 4 Good Eversion (S1) 4 Good PT-OP-Q Treatments Start: 11/23/18 17:42 Freq: Status: Active Protocol: Document 01/20/19 17:42 LR (Rec: 01/20/19 18:08 LR [email or web address]) Gym Equipment Shuttle Balance blue clips Details fwd & side: WBOS & NBOS; Fwd staggered stance Therapeutic Exercises Standing Exercises hip hikes Standing Exercise Name on stair Side right Reps/Minutes 10 side step Standing Exercise Name side step squat Side bilateral Equipment Used none then L2 around kenes Reps/Minutes 2x20ft Gastroc Stretch Standing Exercise Name ABIGAIL Gait Training Gait Activity walking Description work on improved push off and wt shift to R Manual Therapy Treatment Soft Tissue Mobilization plantar fascia Body Location B Mobilization Type Rolling Intensity/Depth Moderate Body Position Sitting Gastroc STM Body Location B Gastroc Mobilization Type Cross-Friction Strain/Counterstrain Strumming Sustained Pressure Body Position Sitting Neuro Re-Education Treatment Balance Activities SLS Details SLS B Comments w/focus on neutral pelvis in mirror PT-OP-T Assessment and Plan Start: 11/23/18 17:42 Freq: Status: Active Protocol: Document 01/20/19 17:42 [facility] (Rec: 01/20/19 18:08 [facility] [id number]) Physical Therapy Assessment Goals Three Impairment Pt AROM DF limited to 3? from neutral Usp Goal (LTG) Pt to exhibit 10? DF with knee flexed LTG Duration 01/23/19 Two Impairment Pt unable to walk more than one hour without pain Usp Goal (LTG) Pt to walk two hours without increased pain to improve ability to shop independently. LTG Duration 01/23/19 One Impairment Pt does not have an appropriate home exercise program Short Term Goal (STG) Pt to be independent and complaint with an appropriate HEP STG Duration 12/23/18 Assessment Summary Assessment Pt was able to tolerate all exercises today withotu inc in pain. She did note significant mm fatigue w/glute exercises for improved gait mechanics and was able to improve mechanics with cueing. Physical Therapy Plan Frequency and Duration Frequency of Treatment 2x/Week Duration of Treatment 10 weeks Plan of Care Start Date 11/23/18 Plan of Care End Date 02/01/19 Next Visit Focus/Plan Next Note Type Progress Note Next Visit Plan cont to work on ankle ROM & gait training & hip stability & balance
--- NOTE | 2019-01-24 15:59 | PT.OTN ---
Current Diagnoses Plantar fascial fibromatosis (01/24/19) Physical Therapy Treatment Note PT-OP-A Visit Information Start: 11/23/18 17:42 Freq: Status: Active Protocol: Document 01/24/19 15:20 DCW (Rec: 01/24/19 15:59 DCW [id number]) Out-Patient Physical Therapy Visit Information Visit Information Visit Type Treatment Note Visit Start Time 15:20 Visit Stop Time 16:00 Total Visit Minutes 40 Visit Number 11 Number of MANAGER MEDICAL AFFAIRS Visits 0 Evaluation Information Evaluation Date 11/23/18 PT-OP-B Current Condition Start: 11/23/18 17:42 Freq: Status: Active Protocol: Document 11/23/18 16:00 DCW (Rec: 11/23/18 18:15 DCW [id number]) Current Condition History of Current Condition Current Complaints Plantar surface pain, heel pain, Achilles pain History of Current Condition Pt reports a history of worsening Plantar fascial fibromatosis, which has resulted in multiple nodules along the plantar surface of her left foot. Pt notes that this has been causing pain off and on for years, and she has now been getting increased pain in her heel and Achilles tendon as well. Pt also notes that 8 weeks ago, she tripped and sprained her MCL, which has resulted in a decline in mobility and activity levels, and a recent increase in weight gait. Pt also notes that she has noticed the beginning of nodules on her right foot as well. Treatment Goals Patient/Caregiver Goals I just want to get the pain out of my foot. I want to be able to stand and function like a normal person. Prior Functional Status Baseline Function- ADL's Independent Baseline Function- Mobility Independent Current Functional Impairments (Reported) Functional Limitations- Mobility/Gait Pt unable to walk more than one hour without increased pain. Pt has increased pain with walking on hills. PT-OP-C Subjective Start: 11/23/18 17:42 Freq: Status: Active Protocol: Document 01/24/19 15:20 DCW (Rec: 01/24/19 15:59 DCW [id number]) OP-PT Subjective Patient Comments Patient Comments Pt notes that she has not felt any plantar fasciitis pain in over a week. Notes her knee still gets a little sore daily , and notices that her ankles still feel pretty weak. PT-OP-F Manual Assessment Start: 11/23/18 17:42 Freq: Status: Active Protocol: Document 11/23/18 16:00 DCW (Rec: 11/23/18 18:15 DCW [id number]) Manual Assessments Soft Tissue Assessment Soft Tissue Mobility Assessment Pt has two palpable nodules along plantar surface of right foot, near mid-arch and just before the ball of her foot below her second toe. Tenderness to palpation of left heel and achilles tendon 2/4: Pain with wincing. Tenderness to palpation of left Gastroc 3/4: Wincing and withdraw PT-OP-J Posture/Palpation/Skin Start: 11/23/18 17:42 Freq: Status: Active Protocol: Document 12/16/18 16:00 RCC (Rec: 12/18/18 12:43 [facility] [email or web address]) Skin Assessment Other Assessments Skin Assessment Comments moderate swelling R lateral ankle, posterior ankle and forefoot PT-OP-K Range of Motion Start: 11/23/18 17:42 Freq: Status: Active Protocol: Document 11/23/18 16:00 DCW (Rec: 11/23/18 18:15 DCW [id number]) Ankle and Foot Goniometric Range of Motion Ankle and Foot Left Active Testing Position Sitting Plantarflexion 52 Inversion 35 Eversion 22 Ankle and Foot ROM Limitations Comments Left DF with knee flexed: AROM 3? from neutral, PROM 8? PT-OP-L Special Tests Start: 11/23/18 17:42 Freq: Status: Active Protocol: Document 11/23/18 16:00 DCW (Rec: 11/23/18 18:15 DCW [id number]) Special Tests Foot/Ankle Special Tests Post Tibiotalor Subluxation Test Results Negative Peroneal Subluxation Test Results Negative Anterior Draw Test Results Negative PT-OP-M Strength Start: 11/23/18 17:42 Freq: Status: Active Protocol: Document 11/23/18 16:00 DCW (Rec: 11/23/18 18:15 DCW [id number]) Ankle/Foot Strength Ankle and Foot Manual Muscle Testing Left Dorsiflexion (L4) 4 Good Plantarflexion (S1) 4- Good- Inversion 4 Good Eversion (S1) 4 Good PT-OP-Q Treatments Start: 11/23/18 17:42 Freq: Status: Active Protocol: Document 01/24/19 15:20 DCW (Rec: 01/24/19 15:59 DCW [id number]) Cardio Equipment Bicycle (Upright) Duration (Minutes) 2 Resistance 5 Seat Position 4 Gym Equipment Shuttle Balance blue clips Details fwd & side: WBOS & NBOS; Fwd staggered stance Therapeutic Exercises Standing Exercises hip hikes Standing Exercise Name on stair Side bilateral Reps/Minutes 10 side step Standing Exercise Name Resisted Side-stepping Side bilateral Resistance Green Equipment Used T-band Reps/Minutes 2x20ft Comments Band around forefoot hurdles step over Standing Exercise Name hurdles/foam Side bilateral Equipment Used hurdles Reps/Minutes 5 mins Comments fwd, tandem, side-stepping single leg stance Standing Exercise Name ground, blue foam Equipment Used ground, blue foam Reps/Minutes 10s x 5 Comments SLS Gastroc Stretch Standing Exercise Name ABIGAIL PT-OP-T Assessment and Plan Start: 11/23/18 17:42 Freq: Status: Active Protocol: Document 01/24/19 15:20 DCW (Rec: 01/24/19 15:59 DCW [id number]) Physical Therapy Assessment Goals Three Impairment Pt AROM DF limited to 3? from neutral Senior Care Goal (LTG) Pt to exhibit 10? DF with knee flexed LTG Duration 01/23/19 Two Impairment Pt unable to walk more than one hour without pain Horse Groomer Goal (LTG) Pt to walk two hours without increased pain to improve ability to shop independently. LTG Duration 01/23/19 One Impairment Pt does not have an appropriate home exercise program Short Term Goal (STG) Pt to be independent and complaint with an appropriate HEP STG Duration 12/23/18 Assessment Summary Assessment Pt going to PCP for follow-up onher knee, will likely return to PT with a new referral for her knee. Physical Therapy Plan Frequency and Duration Frequency of Treatment 2x/Week Duration of Treatment 10 weeks Plan of Care Start Date 11/23/18 Plan of Care End Date 02/01/19 Next Visit Focus/Plan Next Note Type Progress Note Next Visit Plan cont to work on ankle ROM & gait training & hip stability & balance
--- NOTE | 2019-02-02 16:12 | PT.OTN ---
Current Diagnoses Other chronic pain (02/02/19) Stiffness of unspecified joint, not elsewhere classified (02/02/19) Lumbago with sciatica, right side (02/02/19) Lumbago with sciatica, left side (02/02/19) Muscle weakness (generalized) (02/02/19) Plantar fascial fibromatosis (02/02/19) Physical Therapy Treatment Note PT-OP-A Visit Information Start: 11/23/18 17:42 Freq: Status: Active Protocol: Document 02/02/19 15:15 DCW (Rec: 02/02/19 16:10 DCW [id number]) Out-Patient Physical Therapy Visit Information Visit Information Visit Type Re-Evaluation Visit Start Time 15:15 Visit Stop Time 16:00 Total Visit Minutes 45 Visit Number 12 Evaluation Information Evaluation Date 11/23/18 PT-OP-B Current Condition Start: 11/23/18 17:42 Freq: Status: Active Protocol: Document 02/02/19 15:15 DCW (Rec: 02/02/19 15:59 DCW [id number]) Current Condition History of Current Condition Current Complaints Plantar surface pain, heel pain, Achilles pain History of Current Condition Pt reports a history of worsening Plantar fascial fibromatosis, which has resulted in multiple nodules along the plantar surface of her left foot. Pt notes that this has been causing pain off and on for years, and she has now been getting increased pain in her heel and Achilles tendon as well. Pt also notes that 8 weeks ago, she tripped and sprained her MCL, which has resulted in a decline in mobility and activity levels, and a recent increase in weight gait. Pt also notes that she has noticed the beginning of nodules on her right foot as well. ADDENDUM 02/02/19: Pt arrives today with a new referral for her low back pain . Reports bilateral radicular symptoms, left worse than right, and notes increased low back fatigue with activity, such as cleaning her house. Pt also notes her pain is typically worse in the morning , and feels better with exercise. 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 PT-OP-C Subjective Start: 11/23/18 17:42 Freq: Status: Active Protocol: Document 02/02/19 15:15 DCW (Rec: 02/02/19 16:10 DCW [id number]) OP-PT Subjective Patient Comments Patient Comments Pt reports her ankle has greatly improved, but still feels like her ankles need to be strengthened. Arrives today with a new referral for her low back pain, would like to address that because it is really what's limiting me the most, however would also like to continue to work on strengthening her ankles. PT-OP-F Manual Assessment Start: 11/23/18 17:42 Freq: Status: Active Protocol: Document 02/02/19 15:15 DCW (Rec: 02/02/19 15:55 DCW [id number]) Manual Assessments Soft Tissue Assessment Soft Tissue Mobility Assessment Moderate B QL and Piriformis Tightness L>R, Tenderness 2/4: Pain with wincing Moderate paraspinal tone PT-OP-J Posture/Palpation/Skin Start: 11/23/18 17:42 Freq: Status: Active Protocol: Document 02/02/19 15:15 DCW (Rec: 02/02/19 15:56 DCW [id number]) Palpation Assessment Location Two Palpation Location Left Gastroc Palpation Findings Soft Tissue Tightness PT-OP-K Range of Motion Start: 11/23/18 17:42 Freq: Status: Active Protocol: Document 02/02/19 15:15 DCW (Rec: 02/02/19 15:55 DCW [id number]) Lumbar Spine Range of Motion Lumbar Spine Active Testing Position Standing Comments Flex/Ext WNL, Lateral flexion fingertips 5 cm from knee joint line bilaterally Ankle and Foot Goniometric Range of Motion Ankle and Foot Left Active Testing Position Sitting Dorsiflexion with Knee Flexed 8 Plantarflexion 60 Inversion 40 Eversion 30 PT-OP-L Special Tests Start: 11/23/18 17:42 Freq: Status: Active Protocol: Document 02/02/19 15:15 DCW (Rec: 02/02/19 15:55 DCW [id number]) Special Tests Lumbar Spine Special Tests Manual Traction Test Results Negative FALLON Test Results Positive Left Straight Leg Raise Test Results Positive Bilaterally Standing Flexion Test Results WNL Compression Test Results Negative Slump Test Results Positive left PT-OP-M Strength Start: 11/23/18 17:42 Freq: Status: Active Protocol: Document 02/02/19 15:15 DCW (Rec: 02/02/19 15:55 DCW [id number]) Hip Strength Hip Manual Muscle Testing Right Flexion (L2) 4- Good- Extension (S1) 4 Good Abduction 4- Good- Adduction 4 Good External Rotation 4+ Good+ Internal Rotation 4+ Good+ Left Flexion (L2) 4- Good- Extension (S1) 4 Good Abduction 4- Good- Adduction 4 Good External Rotation 4+ Good+ Internal Rotation 4+ Good+ Knee Strength Knee Manual Muscle Testing Right Flexion (S2) 4+ Good+ Extension (L3) 4+ Good+ Left Flexion (S2) 4+ Good+ Extension (L3) 4+ Good+ Ankle/Foot Strength Ankle and Foot Manual Muscle Testing Left Dorsiflexion (L4) 4+ Good+ Plantarflexion (S1) 4+ Good+ Inversion 4+ Good+ Eversion (S1) 4+ Good+ PT-OP-Q Treatments Start: 11/23/18 17:42 Freq: Status: Active Protocol: Document 02/02/19 15:15 DCW (Rec: 02/02/19 16:10 DCW [id number]) Manual Therapy Treatment Other Other Manual Treatments Ankle and back assessment, see Objective measures PT-OP-T Assessment and Plan Start: 11/23/18 17:42 Freq: Status: Active Protocol: Document 02/02/19 15:15 DCW (Rec: 02/02/19 16:10 DCW [id number]) Physical Therapy Assessment Impairments Impairments Functional Activities Gait Pain ROM Soft Tissue Mobility Strength Tone Goals Five Impairment Positive lumbar special tests Snf Goal (LTG) Pt to present with negative Slump, SLR, and FALLON tests bilaterally LTG Duration 04/05/19 Four Impairment Pt unable to complete housework due to back stiffness Booster Pump Oiler Goal (LTG) Pt to finish vacuuming her home without requiring a break due to back pain LTG Duration 04/05/19 Three Impairment Pt AROM DF limited to 3? from neutral Booster Pump Oiler Goal (LTG) Pt to exhibit 10? DF with knee flexed LTG Duration 03/05/19 - Improved to 8? from -3? Two Impairment Pt unable to walk more than one hour without pain Booster Pump Oiler Goal (LTG) Pt to walk two hours without increased pain to improve ability to shop independently. LTG Duration 04/05/19 - Improving One Impairment Pt does not have an appropriate home exercise program Short Term Goal (STG) Pt to be independent and complaint with an appropriate HEP STG Duration Met Assessment Summary Assessment Pt presents with vast overall improvement with her ankle strength and mobility, however has complaints of back pain and stiffness limiting her ability to perform housework. Pt should benefit from the addition of hip and lumbar flexibility, STM, and core strengthening, along with continued work on strengthening of her ankles and LEs. Physical Therapy Plan Frequency and Duration Frequency of Treatment 2x/Week Duration of Treatment 2 months Plan of Care Start Date 02/02/19 Plan of Care End Date 04/05/19 Next Visit Focus/Plan Next Note Type Treatment Note Next Visit Plan STM/Flexibility for low back musculature, Core strengthening, LE strengthening
--- NOTE | 2019-02-02 16:12 | PT.OPPOC ---
Current Diagnoses Other chronic pain (02/02/19) Stiffness of unspecified joint, not elsewhere classified (02/02/19) Lumbago with sciatica, right side (02/02/19) Lumbago with sciatica, left side (02/02/19) Muscle weakness (generalized) (02/02/19) Plantar fascial fibromatosis (02/02/19) Provider Visit Care Team Role Provider Type Vania Leger DO Primary Care Provider Physician Specialty: Family Practice Address: [facility] [place], [address] Email: [email or web address] [email or web address] DPM Attending Provider Non-Staff Specialty: Podiatry Address: [address] [place], [address] Email: Plan Of Care PT-OP-T Assessment and Plan Start: 11/23/18 17:42 Freq: Status: Active Protocol: Document 02/02/19 15:15 DCW (Rec: 02/02/19 16:10 DCW [id number]) Physical Therapy Assessment Impairments Impairments Functional Activities Gait Pain ROM Soft Tissue Mobility Strength Tone Goals Five Impairment Positive lumbar special tests Manager Pathology Goal (LTG) Pt to present with negative Slump, SLR, and FALLON tests bilaterally LTG Duration 04/05/19 Four Impairment Pt unable to complete housework due to back stiffness Manager Pathology Goal (LTG) Pt to finish vacuuming her home without requiring a break due to back pain LTG Duration 04/05/19 Three Impairment Pt AROM DF limited to 3? from neutral Half-Way Goal (LTG) Pt to exhibit 10? DF with knee flexed LTG Duration 03/05/19 - Improved to 8? from -3? Two Impairment Pt unable to walk more than one hour without pain Manager Pathology Goal (LTG) Pt to walk two hours without increased pain to improve ability to shop independently. LTG Duration 04/05/19 - Improving One Impairment Pt does not have an appropriate home exercise program Short Term Goal (STG) Pt to be independent and complaint with an appropriate HEP STG Duration Met Assessment Summary Assessment Pt presents with vast overall improvement with her ankle strength and mobility, however has complaints of back pain and stiffness limiting her ability to perform housework. Pt should benefit from the addition of hip and lumbar flexibility, STM, and core strengthening, along with continued work on strengthening of her ankles and LEs. Physical Therapy Plan Frequency and Duration Frequency of Treatment 2x/Week Duration of Treatment 2 months Plan of Care Start Date 02/02/19 Plan of Care End Date 04/05/19 Next Visit Focus/Plan Next Note Type Treatment Note Next Visit Plan STM/Flexibility for low back musculature, Core strengthening, LE strengthening Plan of Care Dates Plan of Care Start Date 02/02/19 Plan of Care End Date 04/05/19 Please Sign and Return: I have reviewed this Plan of Care and certify that the skilled therapy services above are required to meet the patient?s needs. Physician Signature Date Printed Name and Credentials Clinical Instructor Signature Printed Name and Credentials
--- NOTE | 2019-02-07 15:57 | PT.OTN ---
Current Diagnoses Other chronic pain (02/07/19) Stiffness of unspecified joint, not elsewhere classified (02/07/19) Lumbago with sciatica, right side (02/07/19) Lumbago with sciatica, left side (02/07/19) Muscle weakness (generalized) (02/07/19) Plantar fascial fibromatosis (02/07/19) Physical Therapy Treatment Note PT-OP-A Visit Information Start: 11/23/18 17:42 Freq: Status: Active Protocol: Document 02/07/19 15:15 DCW (Rec: 02/07/19 15:57 DCW [id number]) Out-Patient Physical Therapy Visit Information Visit Information Visit Type Treatment Note Visit Start Time 15:15 Visit Stop Time 16:00 Total Visit Minutes 45 Visit Number 13 Number of VESSEL SCRAPPER HELPER Visits 0 Evaluation Information Evaluation Date 11/23/18 PT-OP-B Current Condition Start: 11/23/18 17:42 Freq: Status: Active Protocol: Document 02/02/19 15:15 DCW (Rec: 02/02/19 15:59 DCW [id number]) Current Condition History of Current Condition Current Complaints Plantar surface pain, heel pain, Achilles pain History of Current Condition Pt reports a history of worsening Plantar fascial fibromatosis, which has resulted in multiple nodules along the plantar surface of her left foot. Pt notes that this has been causing pain off and on for years, and she has now been getting increased pain in her heel and Achilles tendon as well. Pt also notes that 8 weeks ago, she tripped and sprained her MCL, which has resulted in a decline in mobility and activity levels, and a recent increase in weight gait. Pt also notes that she has noticed the beginning of nodules on her right foot as well. ADDENDUM 02/02/19: Pt arrives today with a new referral for her low back pain . Reports bilateral radicular symptoms, left worse than right, and notes increased low back fatigue with activity, such as cleaning her house. Pt also notes her pain is typically worse in the morning , and feels better with exercise. 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 PT-OP-C Subjective Start: 11/23/18 17:42 Freq: Status: Active Protocol: Document 02/07/19 15:15 DCW (Rec: 02/07/19 15:57 DCW [id number]) OP-PT Subjective Patient Comments Patient Comments Pt reports she walked with her dog 0.5 mile, reports she felt pretty good during, but is now fairly sore through her back. PT-OP-F Manual Assessment Start: 11/23/18 17:42 Freq: Status: Active Protocol: Document 02/02/19 15:15 DCW (Rec: 02/02/19 15:55 DCW [id number]) Manual Assessments Soft Tissue Assessment Soft Tissue Mobility Assessment Moderate B QL and Piriformis Tightness L>R, Tenderness 2/4: Pain with wincing Moderate paraspinal tone PT-OP-J Posture/Palpation/Skin Start: 11/23/18 17:42 Freq: Status: Active Protocol: Document 02/02/19 15:15 DCW (Rec: 02/02/19 15:56 DCW [id number]) Palpation Assessment Location Two Palpation Location Left Gastroc Palpation Findings Soft Tissue Tightness PT-OP-K Range of Motion Start: 11/23/18 17:42 Freq: Status: Active Protocol: Document 02/02/19 15:15 DCW (Rec: 02/02/19 15:55 DCW [id number]) Lumbar Spine Range of Motion Lumbar Spine Active Testing Position Standing Comments Flex/Ext WNL, Lateral flexion fingertips 5 cm from knee joint line bilaterally Ankle and Foot Goniometric Range of Motion Ankle and Foot Left Active Testing Position Sitting Dorsiflexion with Knee Flexed 8 Plantarflexion 60 Inversion 40 Eversion 30 PT-OP-L Special Tests Start: 11/23/18 17:42 Freq: Status: Active Protocol: Document 02/02/19 15:15 DCW (Rec: 02/02/19 15:55 DCW [id number]) Special Tests Lumbar Spine Special Tests Manual Traction Test Results Negative FALLON Test Results Positive Left Straight Leg Raise Test Results Positive Bilaterally Standing Flexion Test Results WNL Compression Test Results Negative Slump Test Results Positive left PT-OP-M Strength Start: 11/23/18 17:42 Freq: Status: Active Protocol: Document 02/02/19 15:15 DCW (Rec: 02/02/19 15:55 DCW [id number]) Hip Strength Hip Manual Muscle Testing Right Flexion (L2) 4- Good- Extension (S1) 4 Good Abduction 4- Good- Adduction 4 Good External Rotation 4+ Good+ Internal Rotation 4+ Good+ Left Flexion (L2) 4- Good- Extension (S1) 4 Good Abduction 4- Good- Adduction 4 Good External Rotation 4+ Good+ Internal Rotation 4+ Good+ Knee Strength Knee Manual Muscle Testing Right Flexion (S2) 4+ Good+ Extension (L3) 4+ Good+ Left Flexion (S2) 4+ Good+ Extension (L3) 4+ Good+ Ankle/Foot Strength Ankle and Foot Manual Muscle Testing Left Dorsiflexion (L4) 4+ Good+ Plantarflexion (S1) 4+ Good+ Inversion 4+ Good+ Eversion (S1) 4+ Good+ PT-OP-Q Treatments Start: 11/23/18 17:42 Freq: Status: Active Protocol: Document 02/07/19 15:15 DCW (Rec: 02/07/19 15:57 DCW [id number]) Gym Equipment Cable Column (Body Solid) Hip Adduction Resistance 30# Hip Abduction Resistance 30# Shuttle Recovery Unilateral Squats Resistance 50# Shuttle Recovery Platform Stable Bilateral Squats Resistance 87# Shuttle Recovery Platform Stable Therapeutic Exercises Supine Exercises HS stretch Supine Exercise Name HS stretch Comments Manual Sidelying Exercises Reverse Clamshell Sidelying Exercise Name Reverse Clamshell Side bilateral Reps/Minutes x15 Clamshell Sidelying Exercise Name Clamshell Side bilateral Reps/Minutes x15 Hip Abduction Sidelying Exercise Name Abduction Side bilateral Reps/Minutes x15 Standing Exercises side step Standing Exercise Name Resisted Side-stepping Side bilateral Resistance Green Equipment Used T-band Reps/Minutes 2x20ft Manual Therapy Treatment Soft Tissue Mobilization Paraspinals Body Location B paraspinals Mobilization Type Strumming Sustained Pressure Trigger Point Release Body Position Prone PT-OP-T Assessment and Plan Start: 11/23/18 17:42 Freq: Status: Active Protocol: Document 02/07/19 15:15 DCW (Rec: 02/07/19 15:57 DCW [id number]) Physical Therapy Assessment Impairments Impairments Functional Activities Gait Pain ROM Soft Tissue Mobility Strength Tone Goals Five Impairment Positive lumbar special tests Long-Term Goal (LTG) Pt to present with negative Slump, SLR, and FALLON tests bilaterally LTG Duration 04/05/19 Four Impairment Pt unable to complete housework due to back stiffness Long-Term Goal (LTG) Pt to finish vacuuming her home without requiring a break due to back pain LTG Duration 04/05/19 Three Impairment Pt AROM DF limited to 3? from neutral Long-Term Goal (LTG) Pt to exhibit 10? DF with knee flexed LTG Duration 03/05/19 - Improved to 8? from -3? Two Impairment Pt unable to walk more than one hour without pain Photographic Reproduction Technician Goal (LTG) Pt to walk two hours without increased pain to improve ability to shop independently. LTG Duration 04/05/19 - Improving One Impairment Pt does not have an appropriate home exercise program Short Term Goal (STG) Pt to be independent and complaint with an appropriate HEP STG Duration Met Assessment Summary Assessment Pt tolerated addition of core and LE strengthening exercises well, but was noticeably fatigued following her treatment session. Physical Therapy Plan Frequency and Duration Frequency of Treatment 2x/Week Duration of Treatment 2 months Plan of Care Start Date 02/02/19 Plan of Care End Date 04/05/19 Next Visit Focus/Plan Next Note Type Treatment Note Next Visit Plan STM/Flexibility for low back musculature, Core strengthening, LE strengthening
--- NOTE | 2019-03-02 18:44 | PT.OTN ---
Current Diagnoses Other chronic pain (03/02/19) Stiffness of unspecified joint, not elsewhere classified (03/02/19) Lumbago with sciatica, right side (03/02/19) Lumbago with sciatica, left side (03/02/19) Muscle weakness (generalized) (03/02/19) Plantar fascial fibromatosis (03/02/19) Physical Therapy Treatment Note PT-OP-A Visit Information Start: 11/23/18 17:42 Freq: Status: Active Protocol: Document 03/02/19 16:50 HH (Rec: 03/02/19 18:43 HH [id number]) Out-Patient Physical Therapy Visit Information Visit Information Visit Type Treatment Note Visit Start Time 16:50 Visit Stop Time 17:30 Total Visit Minutes 40 Visit Number 14 Number of SUBSTATION OPERATOR AUTOMATIC Visits 0 PT-OP-B Current Condition Start: 11/23/18 17:42 Freq: Status: Active Protocol: Document 02/02/19 15:15 DCW (Rec: 02/02/19 15:59 DCW [id number]) Current Condition History of Current Condition Current Complaints Plantar surface pain, heel pain, Achilles pain History of Current Condition Pt reports a history of worsening Plantar fascial fibromatosis, which has resulted in multiple nodules along the plantar surface of her left foot. Pt notes that this has been causing pain off and on for years, and she has now been getting increased pain in her heel and Achilles tendon as well. Pt also notes that 8 weeks ago, she tripped and sprained her MCL, which has resulted in a decline in mobility and activity levels, and a recent increase in weight gait. Pt also notes that she has noticed the beginning of nodules on her right foot as well. ADDENDUM 02/02/19: Pt arrives today with a new referral for her low back pain . Reports bilateral radicular symptoms, left worse than right, and notes increased low back fatigue with activity, such as cleaning her house. Pt also notes her pain is typically worse in the morning , and feels better with exercise. 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 PT-OP-C Subjective Start: 11/23/18 17:42 Freq: Status: Active Protocol: Document 03/02/19 16:50 HH (Rec: 03/02/19 18:43 HH [id number]) OP-PT Subjective Patient Comments Patient Comments I havent done much of hep but i am able to 0.5 mile walk a day with my dog. But seems like exercising does make me feel better in general. PT-OP-F Manual Assessment Start: 11/23/18 17:42 Freq: Status: Active Protocol: Document 02/02/19 15:15 DCW (Rec: 02/02/19 15:55 DCW [id number]) Manual Assessments Soft Tissue Assessment Soft Tissue Mobility Assessment Moderate B QL and Piriformis Tightness L>R, Tenderness 2/4: Pain with wincing Moderate paraspinal tone PT-OP-J Posture/Palpation/Skin Start: 11/23/18 17:42 Freq: Status: Active Protocol: Document 02/02/19 15:15 DCW (Rec: 02/02/19 15:56 DCW [id number]) Palpation Assessment Location Two Palpation Location Left Gastroc Palpation Findings Soft Tissue Tightness PT-OP-K Range of Motion Start: 11/23/18 17:42 Freq: Status: Active Protocol: Document 02/02/19 15:15 DCW (Rec: 02/02/19 15:55 DCW [id number]) Lumbar Spine Range of Motion Lumbar Spine Active Testing Position Standing Comments Flex/Ext WNL, Lateral flexion fingertips 5 cm from knee joint line bilaterally Ankle and Foot Goniometric Range of Motion Ankle and Foot Left Active Testing Position Sitting Dorsiflexion with Knee Flexed 8 Plantarflexion 60 Inversion 40 Eversion 30 PT-OP-L Special Tests Start: 11/23/18 17:42 Freq: Status: Active Protocol: Document 02/02/19 15:15 DCW (Rec: 02/02/19 15:55 DCW [id number]) Special Tests Lumbar Spine Special Tests Manual Traction Test Results Negative FALLON Test Results Positive Left Straight Leg Raise Test Results Positive Bilaterally Standing Flexion Test Results WNL Compression Test Results Negative Slump Test Results Positive left PT-OP-M Strength Start: 11/23/18 17:42 Freq: Status: Active Protocol: Document 02/02/19 15:15 DCW (Rec: 02/02/19 15:55 DCW [id number]) Hip Strength Hip Manual Muscle Testing Right Flexion (L2) 4- Good- Extension (S1) 4 Good Abduction 4- Good- Adduction 4 Good External Rotation 4+ Good+ Internal Rotation 4+ Good+ Left Flexion (L2) 4- Good- Extension (S1) 4 Good Abduction 4- Good- Adduction 4 Good External Rotation 4+ Good+ Internal Rotation 4+ Good+ Knee Strength Knee Manual Muscle Testing Right Flexion (S2) 4+ Good+ Extension (L3) 4+ Good+ Left Flexion (S2) 4+ Good+ Extension (L3) 4+ Good+ Ankle/Foot Strength Ankle and Foot Manual Muscle Testing Left Dorsiflexion (L4) 4+ Good+ Plantarflexion (S1) 4+ Good+ Inversion 4+ Good+ Eversion (S1) 4+ Good+ PT-OP-Q Treatments Start: 11/23/18 17:42 Freq: Status: Active Protocol: Document 03/02/19 16:50 HH (Rec: 03/02/19 18:43 HH [email or web address]) Therapeutic Exercises Supine Exercises HS stretch Supine Exercise Name HS stretch Comments Manual supine ppT Side bilateral Reps/Minutes 10 x 2 Prone Exercises cat camel Side bilateral Comments cues on lumbar movement Sitting Exercises peruvian twist Side bilateral Equipment Used 3lb Biomode - Biomolecular Determination ball Comments trunk rotation with feet on floor seated ankle touch Side bilateral Reps/Minutes 8x2 Comments diagonal reach seated floor touch Side bilateral Reps/Minutes 8 x2 Standing Exercises standing PPT Side bilateral Reps/Minutes 10 x3 Comments cues on glute engagement hurdles step over Standing Exercise Name hurdles/foam Side bilateral Equipment Used hurdles Reps/Minutes 5 mins Comments fwd, tandem, side-stepping Manual Therapy Treatment Nerve Glides sciatic nerve glide Body Position Sitting Reps/Duration 10 x 2 Comments with trunk flexion PT-OP-T Assessment and Plan Start: 11/23/18 17:42 Freq: Status: Active Protocol: Document 03/02/19 16:50 HH (Rec: 03/02/19 18:43 [id number]) Physical Therapy Assessment Assessment Summary Assessment Pt loree tx very well. Needed cues to faciltiate lumbar segmental control. Provided hep with cat camel, sciatic nerve glide and standing PPT Physical Therapy Plan Next Visit Focus/Plan Next Note Type Treatment Note Next Visit Plan STM/Flexibility for low back musculature, Core strengthening, LE strengthening
--- NOTE | 2019-03-09 19:14 | PT.OTN ---
Current Diagnoses Other chronic pain (03/09/19) Stiffness of unspecified joint, not elsewhere classified (03/09/19) Lumbago with sciatica, right side (03/09/19) Lumbago with sciatica, left side (03/09/19) Muscle weakness (generalized) (03/09/19) Plantar fascial fibromatosis (03/09/19) Physical Therapy Treatment Note PT-OP-A Visit Information Start: 11/23/18 17:42 Freq: Status: Active Protocol: Document 03/09/19 17:22 [facility] (Rec: 03/09/19 19:14 [facility] [id number]) Out-Patient Physical Therapy Visit Information Visit Information Visit Type Treatment Note Visit Start Time 17:34 Visit Stop Time 18:30 Total Visit Minutes 56 Visit Number 15 Number of SYSTEMS PROJECT MANAGER Visits 0 PT-OP-B Current Condition Start: 11/23/18 17:42 Freq: Status: Active Protocol: Document 02/02/19 15:15 DCW (Rec: 02/02/19 15:59 DCW [id number]) Current Condition History of Current Condition Current Complaints Plantar surface pain, heel pain, Achilles pain History of Current Condition Pt reports a history of worsening Plantar fascial fibromatosis, which has resulted in multiple nodules along the plantar surface of her left foot. Pt notes that this has been causing pain off and on for years, and she has now been getting increased pain in her heel and Achilles tendon as well. Pt also notes that 8 weeks ago, she tripped and sprained her MCL, which has resulted in a decline in mobility and activity levels, and a recent increase in weight gait. Pt also notes that she has noticed the beginning of nodules on her right foot as well. ADDENDUM 02/02/19: Pt arrives today with a new referral for her low back pain . Reports bilateral radicular symptoms, left worse than right, and notes increased low back fatigue with activity, such as cleaning her house. Pt also notes her pain is typically worse in the morning , and feels better with exercise. 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 PT-OP-C Subjective Start: 11/23/18 17:42 Freq: Status: Active Protocol: Document 03/09/19 17:22 [facility] (Rec: 03/09/19 19:14 [facility] [id number]) OP-PT Subjective Patient Comments Patient Comments Pt reports tripping over dog gait about an hour before this session so she banged up her L knee and byrd but notes just a little soreness. COmpliance with exercises. Patient Reported Progress Improving PT-OP-F Manual Assessment Start: 11/23/18 17:42 Freq: Status: Active Protocol: Document 02/02/19 15:15 DCW (Rec: 02/02/19 15:55 DCW [id number]) Manual Assessments Soft Tissue Assessment Soft Tissue Mobility Assessment Moderate B QL and Piriformis Tightness L>R, Tenderness 2/4: Pain with wincing Moderate paraspinal tone PT-OP-J Posture/Palpation/Skin Start: 11/23/18 17:42 Freq: Status: Active Protocol: Document 02/02/19 15:15 DCW (Rec: 02/02/19 15:56 DCW [id number]) Palpation Assessment Location Two Palpation Location Left Gastroc Palpation Findings Soft Tissue Tightness PT-OP-K Range of Motion Start: 11/23/18 17:42 Freq: Status: Active Protocol: Document 02/02/19 15:15 DCW (Rec: 02/02/19 15:55 DCW [id number]) Lumbar Spine Range of Motion Lumbar Spine Active Testing Position Standing Comments Flex/Ext WNL, Lateral flexion fingertips 5 cm from knee joint line bilaterally Ankle and Foot Goniometric Range of Motion Ankle and Foot Left Active Testing Position Sitting Dorsiflexion with Knee Flexed 8 Plantarflexion 60 Inversion 40 Eversion 30 PT-OP-L Special Tests Start: 11/23/18 17:42 Freq: Status: Active Protocol: Document 02/02/19 15:15 DCW (Rec: 02/02/19 15:55 DCW [id number]) Special Tests Lumbar Spine Special Tests Manual Traction Test Results Negative FALLON Test Results Positive Left Straight Leg Raise Test Results Positive Bilaterally Standing Flexion Test Results WNL Compression Test Results Negative Slump Test Results Positive left PT-OP-M Strength Start: 11/23/18 17:42 Freq: Status: Active Protocol: Document 02/02/19 15:15 DCW (Rec: 02/02/19 15:55 DCW [id number]) Hip Strength Hip Manual Muscle Testing Right Flexion (L2) 4- Good- Extension (S1) 4 Good Abduction 4- Good- Adduction 4 Good External Rotation 4+ Good+ Internal Rotation 4+ Good+ Left Flexion (L2) 4- Good- Extension (S1) 4 Good Abduction 4- Good- Adduction 4 Good External Rotation 4+ Good+ Internal Rotation 4+ Good+ Knee Strength Knee Manual Muscle Testing Right Flexion (S2) 4+ Good+ Extension (L3) 4+ Good+ Left Flexion (S2) 4+ Good+ Extension (L3) 4+ Good+ Ankle/Foot Strength Ankle and Foot Manual Muscle Testing Left Dorsiflexion (L4) 4+ Good+ Plantarflexion (S1) 4+ Good+ Inversion 4+ Good+ Eversion (S1) 4+ Good+ PT-OP-Q Treatments Start: 11/23/18 17:42 Freq: Status: Active Protocol: Document 03/09/19 17:22 [facility] (Rec: 03/09/19 19:14 [facility] [id number]) Gym Equipment Therapeutic Ball pelvic tilts Body Position Sitting Reps/Duration 10 Comments manual cueing Therapeutic Exercises Prone Exercises cat camel Side bilateral Comments Cues for pelvic motion Standing Exercises standing PPT Side bilateral Reps/Minutes mult reps with manual cueing Comments cues on glute engagement side step Standing Exercise Name Resisted Side-stepping Side bilateral Equipment Used no tband 1st lap w/focus on form then yellow tband at ankles Reps/Minutes 2x20ft Therapeutic Activity Therapeutic Activity posture Name standing posture-pt positioned ; seated-pt educated on desk set up Manual Therapy Treatment Soft Tissue Mobilization Paraspinals Body Location B paraspinals & QL Mobilization Type Strumming Sustained Pressure Trigger Point Release Body Position Prone PT-OP-T Assessment and Plan Start: 11/23/18 17:42 Freq: Status: Active Protocol: Document 03/09/19 17:22 [facility] (Rec: 03/09/19 19:14 [facility] [id number]) Physical Therapy Assessment Goals Five Impairment Positive lumbar special tests Mcfp Goal (LTG) Pt to present with negative Slump, SLR, and FALLON tests bilaterally LTG Duration 04/05/19 Four Impairment Pt unable to complete housework due to back stiffness Mcfp Goal (LTG) Pt to finish vacuuming her home without requiring a break due to back pain LTG Duration 04/05/19 Three Impairment Pt AROM DF limited to 3? from neutral Servomechanism Assembler Goal (LTG) Pt to exhibit 10? DF with knee flexed LTG Duration 03/05/19 - Improved to 8? from -3? Two Impairment Pt unable to walk more than one hour without pain Servomechanism Assembler Goal (LTG) Pt to walk two hours without increased pain to improve ability to shop independently. LTG Duration 04/05/19 - Improving One Impairment Pt does not have an appropriate home exercise program Short Term Goal (STG) Pt to be independent and complaint with an appropriate HEP STG Duration Met Assessment Summary Assessment Pt required max cueing and tactile cueing for pelvic tilts in all positions. By end of session, pt was able to do pelvic tilt without knee flex or thoracic cage movement. Pt was educated on posture and had dec pain in better positioning. Pt reports reliefw ith manual work Physical Therapy Plan Frequency and Duration Frequency of Treatment 2x/Week Duration of Treatment 2 months Plan of Care Start Date 02/02/19 Plan of Care End Date 04/05/19 Next Visit Focus/Plan Next Note Type Treatment Note Next Visit Plan cont to work on postural stability & work on gait mechanics, advance core stability & LE strength
--- NOTE | 2019-03-16 18:31 | PT.OTN ---
Current Diagnoses Other chronic pain (03/16/19) Stiffness of unspecified joint, not elsewhere classified (03/16/19) Lumbago with sciatica, right side (03/16/19) Lumbago with sciatica, left side (03/16/19) Muscle weakness (generalized) (03/16/19) Plantar fascial fibromatosis (03/16/19) Physical Therapy Treatment Note PT-OP-A Visit Information Start: 11/23/18 17:42 Freq: Status: Active Protocol: Document 03/16/19 17:55 [facility] (Rec: 03/16/19 18:31 [facility] [id number]) Out-Patient Physical Therapy Visit Information Visit Information Visit Type Treatment Note Visit Start Time 17:30 Visit Stop Time 18:15 Total Visit Minutes 45 Visit Number 16 Number of SOFTWARE QUALITY ENGINEER Visits 0 PT-OP-B Current Condition Start: 11/23/18 17:42 Freq: Status: Active Protocol: Document 02/02/19 15:15 DCW (Rec: 02/02/19 15:59 DCW [id number]) Current Condition History of Current Condition Current Complaints Plantar surface pain, heel pain, Achilles pain History of Current Condition Pt reports a history of worsening Plantar fascial fibromatosis, which has resulted in multiple nodules along the plantar surface of her left foot. Pt notes that this has been causing pain off and on for years, and she has now been getting increased pain in her heel and Achilles tendon as well. Pt also notes that 8 weeks ago, she tripped and sprained her MCL, which has resulted in a decline in mobility and activity levels, and a recent increase in weight gait. Pt also notes that she has noticed the beginning of nodules on her right foot as well. ADDENDUM 02/02/19: Pt arrives today with a new referral for her low back pain . Reports bilateral radicular symptoms, left worse than right, and notes increased low back fatigue with activity, such as cleaning her house. Pt also notes her pain is typically worse in the morning , and feels better with exercise. 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 PT-OP-C Subjective Start: 11/23/18 17:42 Freq: Status: Active Protocol: Document 03/16/19 17:55 [facility] (Rec: 03/16/19 18:31 [facility] [id number]) OP-PT Subjective Patient Comments Patient Comments Pt reports back has felt better since last session. Reports working on her posture . L ant hip/abdomen have been painful so has not done a lot of the exercises. PT-OP-F Manual Assessment Start: 11/23/18 17:42 Freq: Status: Active Protocol: Document 02/02/19 15:15 DCW (Rec: 02/02/19 15:55 DCW [id number]) Manual Assessments Soft Tissue Assessment Soft Tissue Mobility Assessment Moderate B QL and Piriformis Tightness L>R, Tenderness 2/4: Pain with wincing Moderate paraspinal tone PT-OP-J Posture/Palpation/Skin Start: 11/23/18 17:42 Freq: Status: Active Protocol: Document 02/02/19 15:15 DCW (Rec: 02/02/19 15:56 DCW [id number]) Palpation Assessment Location Two Palpation Location Left Gastroc Palpation Findings Soft Tissue Tightness PT-OP-K Range of Motion Start: 11/23/18 17:42 Freq: Status: Active Protocol: Document 02/02/19 15:15 DCW (Rec: 02/02/19 15:55 DCW [id number]) Lumbar Spine Range of Motion Lumbar Spine Active Testing Position Standing Comments Flex/Ext WNL, Lateral flexion fingertips 5 cm from knee joint line bilaterally Ankle and Foot Goniometric Range of Motion Ankle and Foot Left Active Testing Position Sitting Dorsiflexion with Knee Flexed 8 Plantarflexion 60 Inversion 40 Eversion 30 PT-OP-L Special Tests Start: 11/23/18 17:42 Freq: Status: Active Protocol: Document 02/02/19 15:15 DCW (Rec: 02/02/19 15:55 DCW [id number]) Special Tests Lumbar Spine Special Tests Manual Traction Test Results Negative FALLON Test Results Positive Left Straight Leg Raise Test Results Positive Bilaterally Standing Flexion Test Results WNL Compression Test Results Negative Slump Test Results Positive left PT-OP-M Strength Start: 11/23/18 17:42 Freq: Status: Active Protocol: Document 02/02/19 15:15 DCW (Rec: 02/02/19 15:55 DCW [id number]) Hip Strength Hip Manual Muscle Testing Right Flexion (L2) 4- Good- Extension (S1) 4 Good Abduction 4- Good- Adduction 4 Good External Rotation 4+ Good+ Internal Rotation 4+ Good+ Left Flexion (L2) 4- Good- Extension (S1) 4 Good Abduction 4- Good- Adduction 4 Good External Rotation 4+ Good+ Internal Rotation 4+ Good+ Knee Strength Knee Manual Muscle Testing Right Flexion (S2) 4+ Good+ Extension (L3) 4+ Good+ Left Flexion (S2) 4+ Good+ Extension (L3) 4+ Good+ Ankle/Foot Strength Ankle and Foot Manual Muscle Testing Left Dorsiflexion (L4) 4+ Good+ Plantarflexion (S1) 4+ Good+ Inversion 4+ Good+ Eversion (S1) 4+ Good+ PT-OP-Q Treatments Start: 11/23/18 17:42 Freq: Status: Active Protocol: Document 03/16/19 17:55 [facility] (Rec: 03/16/19 18:31 [facility] [id number]) Therapeutic Exercises Prone Exercises hip ext Prone Exercise Name alt Side bilateral Comments improved after mobs Standing Exercises hip ext Standing Exercise Name focus on neutral back and core Side bilateral Reps/Minutes 15 Therapeutic Activity Therapeutic Activity posture Name standing posture Comments progressed to wt shifting in mirror for wt acceptance Gait Training Gait Activity walking Description without lat lean in mirror Manual Therapy Treatment Soft Tissue Mobilization Paraspinals Body Location R>L paraspinals & QL Mobilization Type Strumming Sustained Pressure Trigger Point Release Body Position Prone Joint Mobilizations innominate Joint L Direction ext functional mobilization hip Joint B Direction ant mob for ext PT-OP-T Assessment and Plan Start: 11/23/18 17:42 Freq: Status: Active Protocol: Document 03/16/19 17:55 [facility] (Rec: 03/16/19 18:31 [facility] [id number]) Physical Therapy Assessment Goals Five Impairment Positive lumbar special tests Fdc Goal (LTG) Pt to present with negative Slump, SLR, and FALLON tests bilaterally LTG Duration 04/05/19 Four Impairment Pt unable to complete housework due to back stiffness Entertainment & Media Correspondent Goal (LTG) Pt to finish vacuuming her home without requiring a break due to back pain LTG Duration 04/05/19 Three Impairment Pt AROM DF limited to 3? from neutral Fdc Goal (LTG) Pt to exhibit 10? DF with knee flexed LTG Duration 03/05/19 - Improved to 8? from -3? Two Impairment Pt unable to walk more than one hour without pain Entertainment & Media Correspondent Goal (LTG) Pt to walk two hours without increased pain to improve ability to shop independently. LTG Duration 04/05/19 - Improving One Impairment Pt does not have an appropriate home exercise program Short Term Goal (STG) Pt to be independent and complaint with an appropriate HEP STG Duration Met Assessment Summary Assessment Pt is lacking ext and with satnding ext exercise, she does not get much past neutral which limits her ability for glute use for push off in gait . She improved hip ROM after manual treatmetn. She showed good carry over with posture today and was able to work on gait with less lat leaning in mirror well with significant cueing. Physical Therapy Plan Frequency and Duration Frequency of Treatment 2x/Week Duration of Treatment 2 months Plan of Care Start Date 02/02/19 Plan of Care End Date 04/05/19 Next Visit Focus/Plan Next Note Type Treatment Note Next Visit Plan cont to work on postural stability & work on gait mechanics, advance core stability & LE strength
--- NOTE | 2019-04-27 19:08 | PT.OTRE ---
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) Arthritis of both hands (Chronic 11/07/16) Arthritis of carpometacarpal (CMC) joint of left thumb (Chronic 09/23/17) Attention deficit disorder (Chronic) Cervical arthritis (Chronic 09/16/16) Closed right ankle fracture (Resolved 1975) DDD (degenerative disc disease) (Chronic) Drug abuse in remission (Resolved) Fibromyalgia (Chronic 07/23/16) History of hiatal hernia (Chronic) 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) Hypertension (Chronic) Iritis (Chronic) Iron deficiency anemia (Chronic 12/09/13) Irritable bowel syndrome (Chronic) Prurigo nodularis (Chronic) Tobacco use (Chronic 08/25/17) Xerostomia (Chronic) Surgical History (Last Reviewed 10/07/18 @ 09:28 by Vania Leger DO) H/O hysterectomy with oophorectomy (Resolved) History of ankle surgery (Resolved 1975) History of colon surgery (Resolved) History of thumb surgery (Resolved) History of toe surgery (Resolved 1999) Visit Care Team Role Provider Type Vania Leger DO Primary Care Provider Physician Specialty: Family Practice Address: [address] [place] [address], [place], [address] Email: [email or web address] Jorden Rodgers DPM Attending Provider Non-Staff Specialty: Podiatry Address: [address] [place], [address] Email: Physical Therapy Re-Evaluation PT-OP-A Visit Information Start: 11/23/18 17:42 Freq: Status: Active Protocol: Document 04/27/19 16:00 HH (Rec: 04/27/19 19:08 HH [id number]) Out-Patient Physical Therapy Visit Information Visit Information Visit Type Re-Evaluation Visit Note Pt's last visit was 03/16. Pt was dx with IBS, gastritis and costocondritis and currently had medication tx for them, Visit Start Time 16:00 Visit Stop Time 16:20 Total Visit Minutes 20 Visit Number 17 Number of PLASTIC OUTFITTER Visits 0 PT-OP-B Current Condition Start: 11/23/18 17:42 Freq: Status: Active Protocol: Document 02/02/19 15:15 DCW (Rec: 02/02/19 15:59 DCW [id number]) Current Condition History of Current Condition Current Complaints Plantar surface pain, heel pain, Achilles pain History of Current Condition Pt reports a history of worsening Plantar fascial fibromatosis, which has resulted in multiple nodules along the plantar surface of her left foot. Pt notes that this has been causing pain off and on for years, and she has now been getting increased pain in her heel and Achilles tendon as well. Pt also notes that 8 weeks ago, she tripped and sprained her MCL, which has resulted in a decline in mobility and activity levels, and a recent increase in weight gait. Pt also notes that she has noticed the beginning of nodules on her right foot as well. ADDENDUM 02/02/19: Pt arrives today with a new referral for her low back pain . Reports bilateral radicular symptoms, left worse than right, and notes increased low back fatigue with activity, such as cleaning her house. Pt also notes her pain is typically worse in the morning , and feels better with exercise. 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 PT-OP-C Subjective Start: 11/23/18 17:42 Freq: Status: Active Protocol: Document 04/27/19 16:00 HH (Rec: 04/27/19 19:08 [email or web address]) OP-PT Subjective Patient Comments Patient Comments My back pain and foot pain have gotten better and i think ready to be d/c from PT. Patient Reported Progress Improving PT-OP-F Manual Assessment Start: 11/23/18 17:42 Freq: Status: Active Protocol: Document 02/02/19 15:15 DCW (Rec: 02/02/19 15:55 DCW [id number]) Manual Assessments Soft Tissue Assessment Soft Tissue Mobility Assessment Moderate B QL and Piriformis Tightness L>R, Tenderness 2/4: Pain with wincing Moderate paraspinal tone PT-OP-J Posture/Palpation/Skin Start: 11/23/18 17:42 Freq: Status: Active Protocol: Document 02/02/19 15:15 DCW (Rec: 02/02/19 15:56 DCW [id number]) Palpation Assessment Location Two Palpation Location Left Gastroc Palpation Findings Soft Tissue Tightness PT-OP-K Range of Motion Start: 11/23/18 17:42 Freq: Status: Active Protocol: Document 02/02/19 15:15 DCW (Rec: 02/02/19 15:55 DCW [id number]) Lumbar Spine Range of Motion Lumbar Spine Active Testing Position Standing Comments Flex/Ext WNL, Lateral flexion fingertips 5 cm from knee joint line bilaterally Ankle and Foot Goniometric Range of Motion Ankle and Foot Measured in Degrees Left Active Testing Position Sitting Dorsiflexion with Knee Flexed 8 Plantarflexion 60 Inversion 40 Eversion 30 PT-OP-L Special Tests Start: 11/23/18 17:42 Freq: Status: Active Protocol: Document 02/02/19 15:15 DCW (Rec: 02/02/19 15:55 DCW [id number]) Special Tests Lumbar Spine Special Tests Manual Traction Test Results Negative FALLON Test Results Positive Left Straight Leg Raise Test Results Positive Bilaterally Standing Flexion Test Results WNL Compression Test Results Negative Slump Test Results Positive left PT-OP-M Strength Start: 11/23/18 17:42 Freq: Status: Active Protocol: Document 02/02/19 15:15 DCW (Rec: 02/02/19 15:55 DCW [id number]) Hip Strength Hip Manual Muscle Testing Right Flexion (L2) 4- Good- Extension (S1) 4 Good Abduction 4- Good- Adduction 4 Good External Rotation 4+ Good+ Internal Rotation 4+ Good+ Left Flexion (L2) 4- Good- Extension (S1) 4 Good Abduction 4- Good- Adduction 4 Good External Rotation 4+ Good+ Internal Rotation 4+ Good+ Knee Strength Knee Manual Muscle Testing Right Flexion (S2) 4+ Good+ Extension (L3) 4+ Good+ Left Flexion (S2) 4+ Good+ Extension (L3) 4+ Good+ Ankle/Foot Strength Ankle and Foot Manual Muscle Testing Left Dorsiflexion (L4) 4+ Good+ Plantarflexion (S1) 4+ Good+ Inversion 4+ Good+ Eversion (S1) 4+ Good+ PT-OP-Q Treatments Start: 11/23/18 17:42 Freq: Status: Active Protocol: Document 04/27/19 16:00 HH (Rec: 04/27/19 19:08 [email or web address]) Self-Care/Home Management Treatment Education Patient Education Body Mechanics,Home Exercise Program,Pain Management, Posture Other Education Education on self stretchs and HEP. PT-OP-T Assessment and Plan Start: 11/23/18 17:42 Freq: Status: Active Protocol: Document 04/27/19 16:00 HH (Rec: 04/27/19 19:08 [email or web address]) Physical Therapy Assessment Goals Five Impairment Positive lumbar special tests Half-Way Goal (LTG) Pt to present with negative Slump, SLR, and FALLON tests bilaterally LTG Duration 04/05/19 Four Half-Way Goal (LTG) 10/2: goal met Pt is able to perform all her housework without back pain but slight soreness only Three Refrigerator Room Clerk Goal (LTG) Goal met 10/2 Pt to exhibit 10? DF with knee flexed Two Refrigerator Room Clerk Goal (LTG) 10/2= improving pt is able to amb 30 mins for a mile twice a day without increased pain. One Short Term Goal (STG) 10/2 goal met Progress Towards Goals Progress Towards Goals Goals Met Assessment Summary Assessment Pt presents to clinic for the first time since 03/16. Pt was dx with IBS, gastritis and costocondritis and currently having medication tx for them. Pt reports her back pain has been resolved significantly and able to return to her PLOF. She is satisfied with her overall rehab progress and has a good understanding of ex routine and body awareness. D/c from PT today. Physical Therapy Plan Discharge Physical Therapy Discharge Reasons Goals Met
--- NOTE | 2019-04-27 19:08 | PT.OPPOC ---
Current Diagnoses Other chronic pain (04/27/19) Stiffness of unspecified joint, not elsewhere classified (04/27/19) Lumbago with sciatica, right side (04/27/19) Lumbago with sciatica, left side (04/27/19) Muscle weakness (generalized) (04/27/19) Plantar fascial fibromatosis (04/27/19) Visit Care Team Role Provider Type Vania Leger DO Primary Care Provider Physician Specialty: Family Practice Address: [address] [place] [address], [place], [address] Email: [email or web address] Jorden Rodgers DPM Attending Provider Non-Staff Specialty: Podiatry Address: [address] [place], [address] Email: Plan Of Care PT-OP-T Assessment and Plan Start: 11/23/18 17:42 Freq: Status: Active Protocol: Document 04/27/19 16:00 (Rec: 04/27/19 19:08 [email or web address]) Physical Therapy Assessment Goals Five Impairment Positive lumbar special tests Prison Goal (LTG) Pt to present with negative Slump, SLR, and FALLON tests bilaterally LTG Duration 04/05/19 Four Prison Goal (LTG) 10/2: goal met Pt is able to perform all her housework without back pain but slight soreness only Three Senior Operations Manager Goal (LTG) Goal met 10/2 Pt to exhibit 10? DF with knee flexed Two Senior Operations Manager Goal (LTG) 10/2= improving pt is able to amb 30 mins for a mile twice a day without increased pain. One Short Term Goal (STG) 10/2 goal met Progress Towards Goals Progress Towards Goals Goals Met Assessment Summary Assessment Pt presents to clinic for the first time since 03/16. Pt was dx with IBS, gastritis and costocondritis and currently having medication tx for them. Pt reports her back pain has been resolved significantly and able to return to her PLOF. She is satisfied with her overall rehab progress and has a good understanding of ex routine and body awareness. D/c from PT today. Physical Therapy Plan Discharge Physical Therapy Discharge Reasons Goals Met Plan of Care Dates Plan of Care Start Date 02/02/19 Plan of Care End Date 04/05/19
== END 2019-06-10 10:51 ==
LOC: PHYS 16:00
PROVIDERS: PCP Family Medicine; Visit Provider Podiatrist
DX: M72.2 Plantar fascial fibromatosis (principal); M54.42 Lumbago with sciatica, left side; M54.41 Lumbago with sciatica, right side; G89.29 Other chronic pain; M62.81 Muscle weakness (generalized); M25.60 Stiffness of unspecified joint, not elsewhere classified
CPT/HCPCS: 97010; 97110; 97112; 97140; 97162; 97164; 97530; 97535

== ENCOUNTER 2019-10-10 15:00 | Outpatient (RCR) | payer OTHER, SELFPAY ==
--- NOTE | 2019-10-03 18:30 | PT-OP ANOTE ---
Message left to notify pt of appt today. Reminded pt of next appt.
--- NOTE | 2019-10-03 18:32 | PT.OIE ---
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) Hypertension (Chronic) Iritis (Chronic) Iron deficiency anemia (Chronic 12/09/13) Irritable bowel syndrome (Chronic) Irritable bowel syndrome with constipation (Acute) Prurigo nodularis (Chronic) Tobacco use (Chronic 08/25/17) Xerostomia (Chronic) Past Surgical History (Last Reviewed 08/26/19 @ 07:10 by Vania Leger DO) H/O exploratory laparotomy (Acute) H/O hysterectomy with oophorectomy (Resolved) H/O laparoscopy (Acute) History of ankle surgery (Resolved 1975) History of colon surgery (Resolved) History of thumb surgery (Resolved) History of toe surgery (Resolved 1999) Visit Care Team Role Provider Type Vania Leger DO Attending Provider Physician Family Provider Primary Care Provider Referring Provider Specialty: Family Practice Address: [address] [place] [address] Email: [email or web address] Physical Therapy Initial Evaluation PT-OP-A Visit Information Start: 10/02/19 11:07 Freq: Status: Active Protocol: Document 10/03/19 15:21 LRN (Rec: 10/03/19 18:25 LRN [id number]) Out-Patient Physical Therapy Visit Information Visit Information Visit Type Initial Evaluation Visit Start Time 15:21 Visit Stop Time 16:30 Total Visit Minutes 69 Visit Number 1 Evaluation Information Evaluation Date 10/03/19 Precautions Precautions Hx of IBS with tubes tied and constipation - 05/1994, Uterus remove - 2005, Colonectomy - 2006, Hysterectomy - 2007. Fibromyalgia, Gastroenteritis, IBS with constipation. PT-OP-B Current Condition Start: 10/02/19 11:07 Freq: Status: Active Protocol: Document 10/03/19 15:21 LRN (Rec: 10/03/19 18:25 LRN [id number]) Current Condition History of Current Condition Onset Date 8 yrs ago Current Complaints Lower abdominal pain History of Current Condition Pelvic pain across lower abdomen and sometimes into the L anterior hip. States her pain can alternate L to R or bilateral. She has had GI tests and knows it is not GI problem. Has IBS-C and has improved since taking medication (Linzests and Dicyclomine). Pain is at area of longitudinal scar after colon surgery to remove 8-9 inches due to an abscess (2006 ), & horizontal scar from endometriosis removal ( complete hysterectomy) - 2007, hyste w/fibroid removed (2005 ). Currently has pain in L lateral hip and feels it is twisting and sometimes on the R side. Hoping physical therapy can help without having to do surgery. Has history of Fibromyalgia. Prior Treatments and Tests None. 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 Anemia off/on every 2-3 months, osteoarthritis. Treatment Goals Patient/Caregiver Goals Pt goal is to relieve the pain in the abdomen. Has had therapy in the back and has home exercises that help to alleviate the back pain, unless exercising too much, then she has more back pain. Back pain varies 4-7/10. Prior Functional Status Baseline Function- ADL's Independent Baseline Function- Mobility Independent Baseline Function- Gait Antalgic gait after sitting too long in the later afternoon and evening. 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 Baseline Function- Recreation/Hobbies Walks dog. Baseline Function- Other Baseline pain is 4-5/10. Current Functional Impairments (Reported) Functional Limitations- ADL's Walks around the block (10'). Ambs without an Assistive device with dog with the strap around the waist. Gets really sore working in the yard. Housekeeping requiring bending over is painful by end of day . Functional Limitations- Work/School Sometimes gets sore with sitting by end of day. 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 PT-OP-C Subjective Start: 10/02/19 11:07 Freq: Status: Active Protocol: Document 10/03/19 15:21 LRN (Rec: 10/03/19 18:25 LR [id number]) Patient Questionnaires Pelvic Pain and Urgency/Frequency Patient Symptom Scale Pelvic Pain Score 17 OP-PT Pain Assessment Location Right Groin Pain Location Details R groin region Intensity 5 Scale Used Numeric (1 - 10) Description Aching Frequency Intermittent Pain Alleviating Factors Heat L groin Pain Location Details L groin & down proximal inner thigh Intensity 5 Scale Used Numeric (1 - 10) Description Aching,Burning,Pulling, Radiating,Shooting Frequency Intermittent Pain Duration 2 hrs at a time Pain Alleviating Factors Heat Other Pain Alleviating Factors Stretching, twisting PT-OP-F Manual Assessment Start: 10/02/19 11:07 Freq: Status: Active Protocol: Document 10/03/19 15:21 LRN (Rec: 10/03/19 18:25 LRN [id number]) Manual Assessments Soft Tissue Assessment Soft Tissue Mobility Assessment Decreased mobility of lower abdomen in the area of the well healed scar. Pain with palpation along the well healed scar in the lower abdomen. PT-OP-I Pelvic Floor Start: 10/02/19 11:07 Freq: Status: Active Protocol: Document 10/03/19 15:21 LRN (Rec: 10/03/19 18:25 LR [id number]) Pelvic Floor Assessment Urine Leakage Size Large Leakage Cause Cough,Urge Other Leakage Causes Water or coffee drinking. Small leakage with coughing. Leaks Per Day 2-4 Voiding Frequency 5-8 Nocturia 0-1 Pads Used In 24 Hours None Bowel Other Bowel Symptoms Routine daily bowel movements while taking medication- Linzess Bowel Movement Frequency daily Cre[place]on Stool Chart Type 1-7 4 Pelvic Clock Pelvic Clock Other No tenderness. Prolapse Cystocele Grade 1 Perineal Descent Resting Absent Bearing Present Contraction Ability Voluntary Contraction Moderate Voluntary Relaxation Moderate Manual Muscle Testing Left 2 Manual Muscle Testing Right 2 Manual Muscle Testing Anterior 3 Manual Muscle Testing Posterior 3 Muscle Endurance (Seconds) 6 Comments Pelvic Floor Comments Dry, good color. PT-OP-J Posture/Palpation/Skin Start: 10/02/19 11:07 Freq: Status: Active Protocol: Document 10/03/19 15:21 LRN (Rec: 10/03/19 18:25 LRN [id number]) Posture Evaluation Position Standing Evaluation View All positions Head/C-Spine Posture Forward Head T-Spine Posture Flattened L-Spine Posture Flattened Pelvis Posture Posterior Tilted Palpation Assessment Location Two Palpation Location Lower L Quadrant of abdomen Palpation Findings Soft Tissue Tightness, Tenderness Palpation Details Along well healed scar. One Palpation Location Lower R Quadrant of abdomen Palpation Findings Soft Tissue Tightness, Tenderness Palpation Details Along well healed scar PT-OP-K Range of Motion Start: 10/02/19 11:07 Freq: Status: Active Protocol: Document 10/03/19 15:21 LRN (Rec: 10/03/19 18:25 LRN [id number]) Hip Goniometric Range of Motion Hip Right Passive Testing Position Supine Flexion w/Knee Flexed 120 Straight Leg Raise 60 Abduction 38 Internal Rotation 55 External Rotation 70 Left Passive Testing Position Supine Flexion w/Knee Flexed 120 Straight Leg Raise 60 Abduction 35 Internal Rotation 35 External Rotation 85 PT-OP-M Strength Start: 10/02/19 11:07 Freq: Status: Active Protocol: Document 10/03/19 15:21 LRN (Rec: 10/03/19 18:25 LRN [id number]) Hip Strength Hip Manual Muscle Testing Right Flexion (L2) 4 Good Extension (S1) 5 Normal Abduction 5 Normal Adduction 2+ Poor+ External Rotation 5 Normal Internal Rotation 5 Normal Left Flexion (L2) 4 Good Extension (S1) 4 Good Abduction 5 Normal Adduction 2 Poor External Rotation 4 Good Internal Rotation 5 Normal PT-OP-Q Treatments Start: 10/02/19 11:07 Freq: Status: Active Protocol: Document 10/03/19 15:21 LRN (Rec: 10/03/19 18:25 LRN [id number]) Therapeutic Exercises Supine Exercises L hip IR stretch Supine Exercise Name L knee to opposite shoulder holding @ L knee and ankle Side left Self-Care/Home Management Treatment Education Patient Education Home Exercise Program Activities Self-Care/Home Management Activities I/S pt in L Hip IR stretch ( piriformis stretch). Issued, explained/reviewed bladder diary to to be completed for a week, to be completed by next appt. PT-OP-T Assessment and Plan Start: 10/02/19 11:07 Freq: Status: Active Protocol: Document 10/03/19 15:21 LRN (Rec: 03/09/20 18:25 LRN [id number]) Physical Therapy Assessment Rehab Potential Rehabilitation Potential Good Evaluation Complexity Number of Personal Factors/Comorbidities 3 or More Number of Body Systems Impaired 4 or More Clinical Presentation at Evaluation Evolving Impairments Impairments Pain,Posture,ROM,Soft Tissue Mobility,Strength Goals Three Impairment Decreased Sola hip mobility and strength Short Term Goal (STG) Improve hip strength (flex, ext, AD, ER) to no less than 4 +/5. STG Duration 11/14/19 Senior Living Goal (LTG) Pt will demonstrate symmetrical passive hip mobility (improving PSLR). LTG Duration 01/01/20 Two Impairment Painful lower quadrant pelvic pain rated 4-7/10. Short Term Goal (STG) Lower quadrant abdominal pain will be no greater than 5/10. Vendor Quality Supervisor Goal (LTG) Lower quadrant abdominal pain will be no greater than 2/10. LTG Duration 01/01/20 One Impairment Pt lacks an appropriate home exercise program Senior Living Goal (LTG) Pt will be independent with a self care HEP to manage her pain. LTG Duration 01/01/20 Assessment Summary Assessment Pt presents with lower abdominal pain in the area of her well healed abdominal scars. Her PF appears to be weak in her lateral gold, but no significant pain is present internally. She is restricted with hip mobility, due to muscle tightness from her LE's and possibly her low back. The pt has a history of low back pain that is probably hindering her ability to improve her hip mobility; therefore treatment of her low back would be beneficial to decrease her pelvic pain and improve her quality of movement. The pt will benefit from skilled physical therapy to improve the soft tissue and fascial mobility of the abdominal region, increase the strength of the lateral gold of her PF and abdominal muscles, and improve her low back mobility and posture. Placement on an independent HEP will be needed for the pt to continue to work towards improving her soft & fascial tissue mobility in the abdominal region. If the pt is unable to progress on her own on a more independent basis of 1x/week, then therapy may need to be increased to 2x/week until she is able to show progress in proper self care at 1x/week. Physical Therapy Plan Frequency and Duration Frequency of Treatment 2x/Week Plan of Care Start Date 10/03/19 Plan of Care End Date 01/01/20 Therapeutic Interventions Therapeutic Interventions Aquatic Therapy,Home Exercise Program,Manual Therapy, Neuromuscular Re-education, Patient/Caregiver Education, Self-Care/Home Management,Soft Tissue Mobilization,Taping, Therapeutic Exercises Modalities Biofeedback,Cold Pack/Ice Massage,Electric Stimulation, Hot Packs,Ultrasound Next Visit Focus/Plan Next Note Type Treatment Note Next Visit Plan Review Bladder Diary, Issue L Piriformis stretch and add sola hip ADD & PSLR stretch. Palpation of Upper abdominal quadrant for pain, and recheck posture and lumbar mobility/ strength. Teach ex's for postural stabilizers as needed , STM/Scar mob, visceral mobs.
--- NOTE | 2019-10-03 18:35 | PT.OPPOC ---
Physical, Occupational & Speech Therapy At [facility] Current Diagnoses Pelvic and perineal pain (10/03/19) Visit Care Team Role Provider Type Vania Leger DO Attending Provider Physician Family Provider Primary Care Provider Referring Provider Specialty: Family Practice Address: [address] [place] [address], [id number] Email: [email or web address] Plan Of Care PT-OP-T Assessment and Plan Start: 10/02/19 11:07 Freq: Status: Active Protocol: Document 10/03/19 15:21 LRN (Rec: 10/03/19 18:25 LRN [id number]) Physical Therapy Assessment Rehab Potential Rehabilitation Potential Good Evaluation Complexity Number of Personal Factors/Comorbidities 3 or More Number of Body Systems Impaired 4 or More Clinical Presentation at Evaluation Evolving Impairments Impairments Pain,Posture,ROM,Soft Tissue Mobility,Strength Goals Three Impairment Decreased Sola hip mobility and strength Short Term Goal (STG) Improve hip strength (flex, ext, AD, ER) to no less than 4 +/5. STG Duration 11/14/19 Penitentiary Goal (LTG) Pt will demonstrate symmetrical passive hip mobility (improving PSLR). LTG Duration 01/01/20 Two Impairment Painful lower quadrant pelvic pain rated 4-7/10. Short Term Goal (STG) Lower quadrant abdominal pain will be no greater than 5/10. Loop Cutter Goal (LTG) Lower quadrant abdominal pain will be no greater than 2/10. LTG Duration 01/01/20 One Impairment Pt lacks an appropriate home exercise program Loop Cutter Goal (LTG) Pt will be independent with a self care HEP to manage her pain. LTG Duration 01/01/20 Assessment Summary Assessment Pt presents with lower abdominal pain in the area of her well healed abdominal scars. Her PF appears to be weak in her lateral gold, but no significant pain is present internally. She is restricted with hip mobility, due to muscle tightness from her LE's and possibly her low back. The pt has a history of low back pain that is probably hindering her ability to improve her hip mobility; therefore treatment of her low back would be beneficial to decrease her pelvic pain and improve her quality of movement. The pt will benefit from skilled physical therapy to improve the soft tissue and fascial mobility of the abdominal region, increase the strength of the lateral gold of her PF and abdominal muscles, and improve her low back mobility and posture. Placement on an independent HEP will be needed for the pt to continue to work towards improving her soft & fascial tissue mobility in the abdominal region. If the pt is unable to progress on her own on a more independent basis of 1x/week, then therapy may need to be increased to 2x/week until she is able to show progress in proper self care at 1x/week. Physical Therapy Plan Frequency and Duration Frequency of Treatment 2x/Week Plan of Care Start Date 10/03/19 Plan of Care End Date 01/01/20 Therapeutic Interventions Therapeutic Interventions Aquatic Therapy,Home Exercise Program,Manual Therapy, Neuromuscular Re-education, Patient/Caregiver Education, Self-Care/Home Management,Soft Tissue Mobilization,Taping, Therapeutic Exercises Modalities Biofeedback,Cold Pack/Ice Massage,Electric Stimulation, Hot Packs,Ultrasound Next Visit Focus/Plan Next Note Type Treatment Note Next Visit Plan Review Bladder Diary, Issue L Piriformis stretch and add sola hip ADD & PSLR stretch. Palpation of Upper abdominal quadrant for pain, and recheck posture and lumbar mobility/ strength. Teach ex's for postural stabilizers as needed , STM/Scar mob, visceral mobs. Plan of Care Dates Plan of Care Start Date 10/03/19 Plan of Care End Date 01/01/20 Electronically Signed by: Jocelyne Goncalves, PT 10/03/19 [id number] Please Sign and Return: I have reviewed this Plan of Care and certify that the skilled therapy services above are required to meet the patient?s needs. Physician Signature Date Printed Name and Credentials Clinical Instructor Signature Printed Name and Credentials
--- NOTE | 2019-10-10 16:36 | PT.OTN ---
Current Diagnoses Pelvic and perineal pain (10/10/19) Physical Therapy Treatment Note PT-OP-A Visit Information Start: 10/02/19 11:07 Freq: Status: Active Protocol: Document 10/10/19 15:03 LRN (Rec: 10/10/19 16:33 LRN [id number]) Out-Patient Physical Therapy Visit Information Visit Information Visit Type Treatment Note Visit Start Time 15:03 Visit Stop Time 15:45 Total Visit Minutes 42 Visit Number 2 Evaluation Information Evaluation Date 10/03/19 Precautions Precautions Hx of IBS with tubes tied and constipation - 05/1994, Uterus remove - 2005, Colonectomy - 2006, Hysterectomy - 2007. Fibromyalgia, Gastroenteritis, IBS with constipation. PT-OP-B Current Condition Start: 10/02/19 11:07 Freq: Status: Active Protocol: Document 10/03/19 15:21 LRN (Rec: 10/03/19 18:25 LRN [id number]) Current Condition History of Current Condition Onset Date 8 yrs ago Current Complaints Lower abdominal pain History of Current Condition Pelvic pain across lower abdomen and sometimes into the L anterior hip. States her pain can alternate L to R or bilateral. She has had GI tests and knows it is not GI problem. Has IBS-C and has improved since taking medication (Linzests and Dicyclomine). Pain is at area of longitudinal scar after colon surgery to remove 8-9 inches due to an abscess (2006 ), & horizontal scar from endometriosis removal ( complete hysterectomy) - 2007, hyste w/fibroid removed (2005 ). Currently has pain in L lateral hip and feels it is twisting and sometimes on the R side. Hoping physical therapy can help without having to do surgery. Has history of Fibromyalgia. Prior Treatments and Tests None. 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 Anemia off/on every 2-3 months, osteoarthritis. Treatment Goals Patient/Caregiver Goals Pt goal is to relieve the pain in the abdomen. Has had therapy in the back and has home exercises that help to alleviate the back pain, unless exercising too much, then she has more back pain. Back pain varies 4-7/10. Prior Functional Status Baseline Function- ADL's Independent Baseline Function- Mobility Independent Baseline Function- Gait Antalgic gait after sitting too long in the later afternoon and evening. 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 Baseline Function- Recreation/Hobbies Walks dog. Baseline Function- Other Baseline pain is 4-5/10. Current Functional Impairments (Reported) Functional Limitations- ADL's Walks around the block (10'). Ambs without an Assistive device with dog with the strap around the waist. Gets really sore working in the yard. Housekeeping requiring bending over is painful by end of day . Functional Limitations- Work/School Sometimes gets sore with sitting by end of day. 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 PT-OP-C Subjective Start: 10/02/19 11:07 Freq: Status: Active Protocol: Document 10/10/19 15:03 LRN (Rec: 10/10/19 16:33 LRN [id number]) OP-PT Subjective Patient Comments Patient Comments Did Bladder diary. Today she has urinated more than normal, 9-10x already. PT-OP-F Manual Assessment Start: 10/02/19 11:07 Freq: Status: Active Protocol: Document 10/03/19 15:21 LRN (Rec: 10/03/19 18:25 LRN [id number]) Manual Assessments Soft Tissue Assessment Soft Tissue Mobility Assessment Decreased mobility of lower abdomen in the area of the well healed scar. Pain with palpation along the well healed scar in the lower abdomen. PT-OP-I Pelvic Floor Start: 10/02/19 11:07 Freq: Status: Active Protocol: Document 10/03/19 15:21 LRN (Rec: 10/03/19 18:25 LRN [id number]) Pelvic Floor Assessment Urine Leakage Size Large Leakage Cause Cough,Urge Other Leakage Causes Water or coffee drinking. Small leakage with coughing. Leaks Per Day 2-4 Voiding Frequency 5-8 Nocturia 0-1 Pads Used In 24 Hours None Bowel Other Bowel Symptoms Routine daily bowel movements while taking medication- Linzess Bowel Movement Frequency daily [place] Stool Chart Type 1-7 4 Pelvic Clock Pelvic Clock Other No tenderness. Prolapse Cystocele Grade 1 Perineal Descent Resting Absent Bearing Present Contraction Ability Voluntary Contraction Moderate Voluntary Relaxation Moderate Manual Muscle Testing Left 2 Manual Muscle Testing Right 2 Manual Muscle Testing Anterior 3 Manual Muscle Testing Posterior 3 Muscle Endurance (Seconds) 6 Comments Pelvic Floor Comments Dry, good color. PT-OP-J Posture/Palpation/Skin Start: 10/02/19 11:07 Freq: Status: Active Protocol: Document 10/03/19 15:21 LRN (Rec: 10/03/19 18:25 LRN [id number]) Posture Evaluation Position Standing Evaluation View All positions Head/C-Spine Posture Forward Head T-Spine Posture Flattened L-Spine Posture Flattened Pelvis Posture Posterior Tilted Palpation Assessment Location Two Palpation Location Lower L Quadrant of abdomen Palpation Findings Soft Tissue Tightness, Tenderness Palpation Details Along well healed scar. One Palpation Location Lower R Quadrant of abdomen Palpation Findings Soft Tissue Tightness, Tenderness Palpation Details Along well healed scar PT-OP-K Range of Motion Start: 10/02/19 11:07 Freq: Status: Active Protocol: Document 10/03/19 15:21 LRN (Rec: 10/03/19 18:25 LRN [id number]) Hip Goniometric Range of Motion Hip Right Passive Testing Position Supine Flexion w/Knee Flexed 120 Straight Leg Raise 60 Abduction 38 Internal Rotation 55 External Rotation 70 Left Passive Testing Position Supine Flexion w/Knee Flexed 120 Straight Leg Raise 60 Abduction 35 Internal Rotation 35 External Rotation 85 PT-OP-M Strength Start: 10/02/19 11:07 Freq: Status: Active Protocol: Document 10/03/19 15:21 LRN (Rec: 10/03/19 18:25 LRN [id number]) Hip Strength Hip Manual Muscle Testing Right Flexion (L2) 4 Good Extension (S1) 5 Normal Abduction 5 Normal Adduction 2+ Poor+ External Rotation 5 Normal Internal Rotation 5 Normal Left Flexion (L2) 4 Good Extension (S1) 4 Good Abduction 5 Normal Adduction 2 Poor External Rotation 4 Good Internal Rotation 5 Normal PT-OP-Q Treatments Start: 10/02/19 11:07 Freq: Status: Active Protocol: Document 10/10/19 15:03 LRN (Rec: 10/10/19 16:33 LRN [id number]) Therapeutic Exercises Supine Exercises L hip IR stretch Supine Exercise Name L knee to opposite shoulder holding @ L knee and ankle Side left Reps/Minutes 1' Comments Review Self-Care/Home Management Treatment Education Patient Education Home Exercise Program Other Education *Reviewed each day of bladder diary & discussed with pt, at length, Bladder Diary results and recommendations, including but not limited to: increase water intake, increase fiber foods and recommended pt speak to MD regarding use of Metamucil. Discussed iron in foods with recommendations for the pt speak to her physician regarding a nutrition consult and diet changes. Discussed effects of smoking on GI system. *Educated pt in Pelvic Anatomy and discussed organ positioning and s/p hysterectomy. *Discussed at length foods that are bladder irritants and foods not bladder irritants, reviewing handout. Activities Self-Care/Home Management Activities Issued handouts after discussions: *Bowel massage with bowel anatomy. *Bowel program *Food & Beverage bladder diet theories/suggestions PT-OP-T Assessment and Plan Start: 10/02/19 11:07 Freq: Status: Active Protocol: Document 10/10/19 15:03 LRN (Rec: 10/10/19 16:33 LRN [id number]) Physical Therapy Assessment Goals Three Impairment Decreased Jose hip mobility and strength Short Term Goal (STG) Improve hip strength (flex, ext, AD, ER) to no less than 4 +/5. STG Duration 11/14/19 Prison Goal (LTG) Pt will demonstrate symmetrical passive hip mobility (improving PSLR). LTG Duration 01/01/20 Two Impairment Painful lower quadrant pelvic pain rated 4-7/10. Short Term Goal (STG) Lower quadrant abdominal pain will be no greater than 5/10. Cost Control Supervisor Goal (LTG) Lower quadrant abdominal pain will be no greater than 2/10. LTG Duration 01/01/20 One Impairment Pt lacks an appropriate home exercise program Cost Control Supervisor Goal (LTG) Pt will be independent with a self care HEP to manage her pain. LTG Duration 01/01/20 Assessment Summary Assessment Pt appears to be doing her HEP of piriformis stretching. She was unaware of pelvic anatomy, pelvic organs and response to foods, and how GI organs can effect the bladder. The pt's lower abdominal pain is unchanged. Per bladder diary the pt would benefit from increased water/ fluid intake and increased fiber in the diet. The pt would benefit from a nutrition consult due to her history of IBS, constipation, and anemia . Will need to address weak lateral gold, improve hip and lumbar mobility, and improve soft tissue & fascial tissue mobility in the abdominal region to decrease pain. Physical Therapy Plan Frequency and Duration Frequency of Treatment 2x/Week Plan of Care Start Date 10/03/19 Plan of Care End Date 01/01/20 Next Visit Focus/Plan Next Note Type Treatment Note Next Visit Plan Check new Bladder Diary, and review ILU bowel massage. Issue L Piriformis stretch and add jose hip ADD & PSLR stretch. Palpation of Upper abdominal quadrant for pain, and recheck posture and lumbar mobility/strength. Teach ex' s for postural stabilizers as needed, STM/Scar mob, visceral mobs.
--- NOTE | 2019-10-13 17:31 | PT-OP ANOTE ---
Message left for pt to return call on Thursday to discuss her therapy schedule.
--- NOTE | 2019-10-17 15:40 | PT-OP ANOTE ---
Message left to notify pt of appt. Pt DNS or call to cancel appt.
--- NOTE | 2020-03-06 09:33 | PT.OPDS ---
Current Diagnoses Pelvic and perineal pain (10/10/19) Visit Care Team Role Provider Type Vania Leger DO Attending Provider Physician Family Provider Primary Care Provider Referring Provider Specialty: Family Practice Address: [address] [place] [address], [facility], [place], [address] Email: [email or web address] Visit Number Visit Number 2 Discharge Summary PT-OP-B Current Condition Start: 10/02/19 11:07 Freq: Status: Active Protocol: Document 10/03/19 15:21 LRN (Rec: 10/03/19 18:25 LRN [id number]) Current Condition History of Current Condition Onset Date 8 yrs ago Current Complaints Lower abdominal pain History of Current Condition Pelvic pain across lower abdomen and sometimes into the L anterior hip. States her pain can alternate L to R or bilateral. She has had GI tests and knows it is not GI problem. Has IBS-C and has improved since taking medication (Linzests and Dicyclomine). Pain is at area of longitudinal scar after colon surgery to remove 8-9 inches due to an abscess (2006 ), & horizontal scar from endometriosis removal ( complete hysterectomy) - 2007, hyste w/fibroid removed (2005 ). Currently has pain in L lateral hip and feels it is twisting and sometimes on the R side. Hoping physical therapy can help without having to do surgery. Has history of Fibromyalgia. Prior Treatments and Tests None. 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 Anemia off/on every 2-3 months, osteoarthritis. Treatment Goals Patient/Caregiver Goals Pt goal is to relieve the pain in the abdomen. Has had therapy in the back and has home exercises that help to alleviate the back pain, unless exercising too much, then she has more back pain. Back pain varies 4-7/10. Prior Functional Status Baseline Function- ADL's Independent Baseline Function- Mobility Independent Baseline Function- Gait Antalgic gait after sitting too long in the later afternoon and evening. 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 Baseline Function- Recreation/Hobbies Walks dog. Baseline Function- Other Baseline pain is 4-5/10. Current Functional Impairments (Reported) Functional Limitations- ADL's Walks around the block (10'). Ambs without an Assistive device with dog with the strap around the waist. Gets really sore working in the yard. Housekeeping requiring bending over is painful by end of day . Functional Limitations- Work/School Sometimes gets sore with sitting by end of day. 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 PT-OP-C Subjective Start: 10/02/19 11:07 Freq: Status: Active Protocol: Document 10/10/19 15:03 LRN (Rec: 10/10/19 16:33 LRN [id number]) OP-PT Subjective Patient Comments Patient Comments Did Bladder diary. Today she has urinated more than normal, 9-10x already. PT-OP-F Manual Assessment Start: 10/02/19 11:07 Freq: Status: Active Protocol: Document 10/03/19 15:21 LRN (Rec: 10/03/19 18:25 LRN [id number]) Manual Assessments Soft Tissue Assessment Soft Tissue Mobility Assessment Decreased mobility of lower abdomen in the area of the well healed scar. Pain with palpation along the well healed scar in the lower abdomen. PT-OP-I Pelvic Floor Start: 10/02/19 11:07 Freq: Status: Active Protocol: Document 10/03/19 15:21 LRN (Rec: 10/03/19 18:25 LRN [id number]) Pelvic Floor Assessment Urine Leakage Size Large Leakage Cause Cough,Urge Other Leakage Causes Water or coffee drinking. Small leakage with coughing. Leaks Per Day 2-4 Voiding Frequency 5-8 Nocturia 0-1 Pads Used In 24 Hours None Bowel Other Bowel Symptoms Routine daily bowel movements while taking medication- Linzess Bowel Movement Frequency daily [place] Stool Chart Type 1-7 4 Pelvic Clock Pelvic Clock Other No tenderness. Prolapse Cystocele Grade 1 Perineal Descent Resting Absent Bearing Present Contraction Ability Voluntary Contraction Moderate Voluntary Relaxation Moderate Manual Muscle Testing Left 2 Manual Muscle Testing Right 2 Manual Muscle Testing Anterior 3 Manual Muscle Testing Posterior 3 Muscle Endurance (Seconds) 6 Comments Pelvic Floor Comments Dry, good color. PT-OP-J Posture/Palpation/Skin Start: 10/02/19 11:07 Freq: Status: Active Protocol: Document 10/03/19 15:21 LRN (Rec: 10/03/19 18:25 LRN [id number]) Posture Evaluation Position Standing Evaluation View All positions Head/C-Spine Posture Forward Head T-Spine Posture Flattened L-Spine Posture Flattened Pelvis Posture Posterior Tilted Palpation Assessment Location Two Palpation Location Lower L Quadrant of abdomen Palpation Findings Soft Tissue Tightness, Tenderness Palpation Details Along well healed scar. One Palpation Location Lower R Quadrant of abdomen Palpation Findings Soft Tissue Tightness, Tenderness Palpation Details Along well healed scar PT-OP-K Range of Motion Start: 10/02/19 11:07 Freq: Status: Active Protocol: Document 10/03/19 15:21 LRN (Rec: 10/03/19 18:25 LRN [id number]) Hip Goniometric Range of Motion Hip Right Passive Testing Position Supine Flexion w/Knee Flexed 120 Straight Leg Raise 60 Abduction 38 Internal Rotation 55 External Rotation 70 Left Passive Testing Position Supine Flexion w/Knee Flexed 120 Straight Leg Raise 60 Abduction 35 Internal Rotation 35 External Rotation 85 PT-OP-M Strength Start: 10/02/19 11:07 Freq: Status: Active Protocol: Document 10/03/19 15:21 LRN (Rec: 10/03/19 18:25 LRN [id number]) Hip Strength Hip Manual Muscle Testing Right Flexion (L2) 4 Good Extension (S1) 5 Normal Abduction 5 Normal Adduction 2+ Poor+ External Rotation 5 Normal Internal Rotation 5 Normal Left Flexion (L2) 4 Good Extension (S1) 4 Good Abduction 5 Normal Adduction 2 Poor External Rotation 4 Good Internal Rotation 5 Normal PT-OP-T Assessment and Plan Start: 10/02/19 11:07 Freq: Status: Active Protocol: Document 03/06/20 09:32 MB (Rec: 03/06/20 09:33 MB [id number]) Physical Therapy Plan Discharge Physical Therapy Discharge Reasons No Longer Attending PT Discharge Comments Per front office, pt did not return call to reschedule after re-opening after COVID. Will d/c PT.
== END 2020-03-06 12:53 ==
LOC: PHYS 15:00
PROVIDERS: Family Provider Family Medicine; PCP Family Medicine; Referring Provider Family Medicine; Visit Provider Family Medicine
DX: R10.2 Pelvic and perineal pain (principal)
CPT/HCPCS: 97162; 97535

== ENCOUNTER → 2019-11-29 10:44 | Outpatient (CLI) | payer OTHER, SELFPAY ==
[2019-12-01 17:52] LABS: COVID19 Sendout Not Detected (Not Detected)
== END ==
PROVIDERS: Family Provider Family Medicine; PCP Family Medicine; Visit Provider Family Medicine
DX: R06.02 Shortness of breath (principal)
CPT/HCPCS: 87635

== ENCOUNTER → 2019-12-28 12:37 | Outpatient (CLI) | payer OTHER, SELFPAY ==
[2019-12-28 12:50] LABS: Add Manual Diff / Slide Review NO; Basophils Absolute Auto 100 /uL (0-100); Basophils Percent Auto 1.1 % (0-2); Eosinophils Absolute Auto 100 /uL (0-450); Eosinophils Percent Auto 2.2 % (2-4); Hematocrit 34.2 % (36-46); Hemoglobin 11.3 g/dL (12.0-16.0); Lymphocytes Absolute Auto 1500 /uL (1100-4500); Lymphocytes Percent Auto 29.2 % (25-40); Mean Corpuscular HGB Conc 33.1 % (30-36); Mean Corpuscular Hemoglobin 25.8 PG (26-34); Monocytes Absolute Auto 400 /uL (0-900); Monocytes Percent Auto 7.9 % (3-14); Neutrophils Absolute Auto 3000 /uL (1500-7000); Neutrophils Percent Auto 59.6 % (50-75); Platelet Count 353 X10^3/uL (150-400); Red Blood Cell Count 4.38 X10^6/uL (4.0-5.2); Red Cell Distribution Width 17.6 % (11.6-14.8)
[2019-12-28 13:03] LABS: Alanine Aminotransferase 14 IU/L (<35); Albumin 4.4 g/dL (3.5-5.0); Albumin Globulin Ratio 1.6 (1.0-2.8); Alkaline Phosphatase 56 U/L (38-126); Aspartate Aminotransferase 21 IU/L (14-36); BUN Creatinine Ratio 34.2 (6-22); Bilirubin Total 0.3 mg/dL (0.2-1.3); Blood Urea Nitrogen 26 mg/dL (7-17); Calcium 9.9 mg/dL (8.4-10.2); Carbon Dioxide 27 mmol/L (22-32); Chloride 103 mmol/L (98-107); Estimated Glomerular Filt Rate > 60.0 mL/min (>60); Globulin 2.8 g/dL (1.7-4.1); Glucose 107 mg/dL (70-100); HEMOLYSIS < 15 (0-50); Sodium 138 mmol/L (137-145); Total Protein 7.2 g/dL (6.3-8.2)
[2019-12-28 13:26] LABS: HEMOLYSIS < 15 (0-50); Iron 32 ug/dL (37-170)
[2019-12-28 13:37] LABS: Percent Iron Saturation 7 % (15-50); Total Iron Binding Capacity 446 ug/dL (265-497); Transferrin 358 mg/dL (206-381)
[2019-12-28 13:38] LABS: Ferritin 7 ng/mL (11-264)
== END ==
PROVIDERS: Family Provider Family Medicine; PCP Family Medicine; Referring Provider Internal Medicine Hematology & Oncology; Visit Provider Internal Medicine Hematology & Oncology
DX: D50.9 Iron deficiency anemia, unspecified (principal)
CPT/HCPCS: 36415; 80053; 82728; 83540; 83550; 85025

== ENCOUNTER → 2020-05-02 14:04 | Outpatient (CLI) | payer OTHER, SELFPAY ==
--- NOTE | 2020-05-02 14:08 | DI.RAD.S_ITS ---
PROCEDURE: XR ANKLE RT MIN 3V INDICATIONS: right foot/ankle pain TECHNIQUE: 3 views of the ankle were acquired. COMPARISON: [facility], , ANKLE 3 VIEWS LEFT, 10/29/2009, 14:48. FINDINGS: Bones: No fractures or dislocations. Ankle mortise is normally aligned. No suspicious bony lesions. There is a small incidentally noted os trigonum. Soft tissues: No tibiotalar joint effusion. Achilles tendon appears normal. IMPRESSION: No acute radiographic findings. If there is continued pain, followup exam or additional imaging such as MRI or CT could be performed for further assessment. Dictated by: Jocelyne Caraballo M.D. on 05/02/2020 at 15:24 Approved by: Jocelyne Caraballo M.D. on 05/02/2020 at 15:35
--- NOTE | 2020-05-02 14:08 | DI.RAD.S_ITS ---
PROCEDURE: XR FOOT RT MIN 3V INDICATIONS: right foot/ankle pain TECHNIQUE: 3 views of the foot were acquired. COMPARISON: [facility], , FOOT 3V LEFT, 10/29/2009, 14:48. FINDINGS: Bones: No fractures or dislocations. No suspicious bony lesions. Soft tissues: No tibiotalar joint effusion. Achilles tendon appears normal. IMPRESSION: No acute radiographic findings. If there is continued pain, followup exam or additional imaging such as MRI or CT could be performed for further assessment. Dictated by: Jocelyne Caraballo M.D. on 05/02/2020 at 15:35 Approved by: Jocelyne Caraballo M.D. on 05/02/2020 at 15:35
== END ==
PROVIDERS: Family Provider Family Medicine; PCP Family Medicine; Referring Provider Nurse Practitioner Family; Visit Provider Nurse Practitioner Family
DX: M79.671 Pain in right foot (principal); M25.571 Pain in right ankle and joints of right foot
CPT/HCPCS: 73610; 73630

== ENCOUNTER → 2020-07-24 15:46 | Outpatient (CLI) | payer OTHER, SELFPAY ==
[2020-07-24 16:09] LABS: Add Manual Diff / Slide Review NO; Basophils Absolute Auto 0 /uL (0-100); Basophils Percent Auto 0.8 % (0-2); Eosinophils Absolute Auto 200 /uL (0-450); Eosinophils Percent Auto 2.7 % (2-4); Hematocrit 40.5 % (36-46); Hemoglobin 13.3 g/dL (12.0-16.0); Lymphocytes Absolute Auto 1500 /uL (1100-4500); Lymphocytes Percent Auto 26.2 % (25-40); Mean Corpuscular HGB Conc 32.9 % (30-36); Mean Corpuscular Hemoglobin 29.8 PG (26-34); Mean Corpuscular Volume 90.7 fL (80-100); Monocytes Absolute Auto 500 /uL (0-900); Monocytes Percent Auto 8.2 % (3-14); Neutrophils Absolute Auto 3600 /uL (1500-7000); Neutrophils Percent Auto 62.1 % (50-75); Platelet Count 308 X10^3/uL (150-400); Red Blood Cell Count 4.47 X10^6/uL (4.0-5.2); Red Cell Distribution Width 15.8 % (11.6-14.8); White Blood Cell Count 5.8 X10^3/uL (4.5-11.0)
[2020-07-24 16:20] LABS: Alanine Aminotransferase 18 IU/L (<35); Albumin 4.2 g/dL (3.5-5.0); Albumin Globulin Ratio 1.6 (1.0-2.8); Alkaline Phosphatase 61 U/L (38-126); Aspartate Aminotransferase 24 IU/L (14-36); Bilirubin Total 0.1 mg/dL (0.2-1.3); Blood Urea Nitrogen 22 mg/dL (7-17); Calcium 9.3 mg/dL (8.4-10.2); Carbon Dioxide 29 mmol/L (22-32); Chloride 106 mmol/L (98-107); Estimated Glomerular Filt Rate > 60.0 mL/min (>60); Globulin 2.7 g/dL (1.7-4.1); Glucose 104 mg/dL (70-100); HEMOLYSIS < 15 (0-50); Sodium 138 mmol/L (137-145); Total Protein 6.9 g/dL (6.3-8.2)
[2020-07-24 16:33] LABS: HEMOLYSIS < 15 (0-50); Iron 54 ug/dL (37-170)
[2020-07-24 16:45] LABS: Percent Iron Saturation 17 % (15-50); Total Iron Binding Capacity 310 ug/dL (265-497); Transferrin 254 mg/dL (206-381)
[2020-07-24 16:55] LABS: Ferritin 103 ng/mL (11-264)
== END ==
PROVIDERS: Internal Medicine Hematology & Oncology; Family Provider Family Medicine; PCP Family Medicine; Referring Provider Family Medicine; Visit Provider Family Medicine
DX: D50.9 Iron deficiency anemia, unspecified (principal)
CPT/HCPCS: 36415; 80053; 82728; 83540; 83550; 85025

== ENCOUNTER → 2020-09-29 09:40 | Outpatient (CLI) | payer OTHER, SELFPAY ==
--- NOTE | 2020-09-29 | DI.MG.S_ITS ---
BILATERAL DIGITAL SCREENING MAMMOGRAM 3D/2D WITH CAD: 09/29/2020 CLINICAL: Routine screening. Comparison is made to exams dated: 11/06/2018 mammogram, 11/02/2017 mammogram, and 10/17/2016 mammogram - [facility]. There are scattered fibroglandular elements in both breasts. Current study was also evaluated with a Computer Aided Detection (CAD) system. No significant masses, calcifications, or other findings are seen in either breast. There has been no significant interval change. IMPRESSION: NEGATIVE There is no mammographic evidence of malignancy. A 1 year screening mammogram is recommended. This exam was interpreted at Station ID: [id number]. NOTE: For mammograms, a report in lay terms will be sent to the patient. Approximately 15% of breast malignancies will not be visualized mammographically. In the management of a palpable breast mass, a negative mammogram must not discourage biopsy of a clinically suspicious lesion. Electronically Signed By: Franky Hughes M.D. at/ron:10/01/2020 07:31:44 letter sent: Normal Exam ACR BI-RADS Category 1: Negative [id number]
== END ==
PROVIDERS: Family Provider Family Medicine; PCP Family Medicine; Referring Provider Family Medicine; Visit Provider Family Medicine
DX: Z12.31 Encounter for screening mammogram for malignant neoplasm of breast (principal)
CPT/HCPCS: 77063; 77067

== ENCOUNTER → 2021-04-25 16:05 | Outpatient (CLI) | payer OTHER, SELFPAY ==
--- NOTE | 2021-04-25 16:07 | DI.RAD.S_ITS ---
PROCEDURE: XR HAND RT MIN 3V INDICATIONS: right thumb pain TECHNIQUE: 3 views of the hand(s) acquired. COMPARISON: [facility], , HAND 3V RIGHT, 09/06/2012, 17:14. FINDINGS: Bones: No fractures or dislocations. Carpal bones are normally aligned. No suspicious bony lesions. Osteoarthritic changes are noted throughout right hand and wrist more prominent at 1st CMC joint and 1st MCP joint. Soft tissues: No suspicious soft tissue calcifications. IMPRESSION: Osteoarthritis throughout right hand and wrist more prominent in right thumb as above. No acute fracture or dislocation. No suspicious bony lesion. Dictated by: Michael Eugene M.D. on 04/25/2021 at 17:16 Approved by: Michael Eugene M.D. on 04/25/2021 at 17:17
== END ==
PROVIDERS: Family Provider Family Medicine; PCP Family Medicine; Referring Provider Family Medicine; Visit Provider Family Medicine
DX: M79.644 Pain in right finger(s) (principal); M18.11 Unilateral primary osteoarthritis of first carpometacarpal joint, right hand; M19.041 Primary osteoarthritis, right hand; M19.031 Primary osteoarthritis, right wrist
CPT/HCPCS: 73130

== ENCOUNTER → 2021-09-13 14:56 | Outpatient (CLI) | payer OTHER, SELFPAY ==
--- NOTE | 2021-09-13 14:58 | DI.RAD.S_ITS ---
PROCEDURE: XR ANKLE RT MIN 3V INDICATIONS: R ankle popped, swelling, pain TECHNIQUE: 3 views of the ankle were acquired. COMPARISON: [facility], CR, XR ANKLE RT MIN 3V, 05/02/2020, 14:00. FINDINGS: Bones: No fractures or dislocations. Ankle mortise is normally aligned. No suspicious bony lesions. Mild periarticular osteophyte formation at the tibiotalar joint. Soft tissues: No tibiotalar joint effusion. Achilles tendon appears normal. IMPRESSION: Osteoarthritis. No acute fracture. No osseous lesion. If symptoms and/or clinical suspicion for pathology persist, further assessment with repeat, or advanced imaging (e.g., CT, MRI, or bone scan) may be helpful for further assessment. Dictated by: Winston Almazan M.D. on 09/13/2021 at 15:28 Approved by: Winston Almazan M.D. on 09/13/2021 at 15:37
== END ==
PROVIDERS: Family Provider Family Medicine; PCP Family Medicine; Referring Provider Physician Assistant; Visit Provider Physician Assistant
DX: M19.071 Primary osteoarthritis, right ankle and foot (principal); M25.571 Pain in right ankle and joints of right foot
CPT/HCPCS: 73610

== ENCOUNTER → 2022-01-20 16:00 | Outpatient (CLI) | payer OTHER, SELFPAY ==
--- NOTE | 2022-01-20 16:02 | DI.MG.S_ITS ---
BILATERAL DIGITAL SCREENING MAMMOGRAM 3D/2D WITH CAD: 01/20/2022 CLINICAL: Routine screening. Comparison is made to exams dated: 09/29/2020 mammogram, 11/06/2018 mammogram, and 11/02/2017 mammogram - [facility]. There are scattered fibroglandular elements in both breasts. Current study was also evaluated with a Computer Aided Detection (CAD) system. No significant masses, calcifications, or other findings are seen in either breast. There has been no significant interval change. IMPRESSION: NEGATIVE There is no mammographic evidence of malignancy. A 1 year screening mammogram is recommended. Based on the Tyrer Cuzick model (a risk assessment model) the patient's lifetime risk is 7.0% and her 10 year risk is 2.7%. According to the ACR, ACS, and NCCN guidelines, an annual breast MRI exam along with mammogram is recommended if the patient's lifetime risk is 20% or greater. This exam was interpreted at Station ID: [id number]. NOTE: For mammograms, a report in lay terms will be sent to the patient. Approximately 15% of breast malignancies will not be visualized mammographically. In the management of a palpable breast mass, a negative mammogram must not discourage biopsy of a clinically suspicious lesion. Electronically Signed By: Jocelyne estrada/ron:01/21/2022 16:56:24 letter sent: Normal Exam ACR BI-RADS Category 1: Negative [id number]
== END ==
PROVIDERS: Family Provider Family Medicine; PCP Family Medicine; Referring Provider Family Medicine; Visit Provider Family Medicine
DX: Z12.31 Encounter for screening mammogram for malignant neoplasm of breast (principal)
CPT/HCPCS: 77063; 77067

== ENCOUNTER → 2022-04-02 16:13 | Outpatient (CLI) | payer OTHER, SELFPAY ==
[2022-04-02 16:50] LABS: Add Manual Diff / Slide Review NO; Basophils Absolute Auto 200 /uL (0-100); Basophils Percent Auto 2.3 % (0-2); Eosinophils Absolute Auto 100 /uL (0-450); Eosinophils Percent Auto 1.1 % (2-4); Hematocrit 42.2 % (36-46); Hemoglobin 14.7 g/dL (12.0-16.0); Lymphocytes Absolute Auto 1200 /uL (1100-4500); Lymphocytes Percent Auto 17.4 % (25-40); Mean Corpuscular HGB Conc 34.8 % (30-36); Mean Corpuscular Hemoglobin 31.2 PG (26-34); Mean Corpuscular Volume 89.6 fL (80-100); Monocytes Absolute Auto 400 /uL (0-900); Monocytes Percent Auto 6.5 % (3-14); Neutrophils Absolute Auto 5000 /uL (1500-7000); Neutrophils Percent Auto 72.7 % (50-75); Platelet Count 308 X10^3/uL (150-400); Red Blood Cell Count 4.71 X10^6/uL (4.0-5.2); White Blood Cell Count 6.8 X10^3/uL (4.5-11.0)
[2022-04-02 17:13] LABS: Alanine Aminotransferase 19 IU/L (<35); Albumin 4.5 g/dL (3.5-5.0); Albumin Globulin Ratio 1.6 (1.0-2.8); Alkaline Phosphatase 61 U/L (38-126); Aspartate Aminotransferase 30 IU/L (14-36); BUN Creatinine Ratio 21.3 (6-22); Bilirubin Total 0.6 mg/dL (0.2-1.3); Blood Urea Nitrogen 17 mg/dL (7-17); Calcium 9.4 mg/dL (8.4-10.2); Carbon Dioxide 28 mmol/L (22-32); Chloride 104 mmol/L (98-107); Estimated Glomerular Filt Rate > 60 mL/min (>60); Globulin 2.9 g/dL (1.7-4.1); Glucose 99 mg/dL (70-100); HEMOLYSIS < 15 (0-50); Iron 72 ug/dL (37-170); Potassium 4.1 mmol/L (3.4-5.1); Sodium 139 mmol/L (137-145); Total Protein 7.4 g/dL (6.3-8.2)
[2022-04-02 17:29] LABS: Percent Iron Saturation 25 % (15-50); Total Iron Binding Capacity 287 ug/dL (265-497); Transferrin 216 mg/dL (206-381)
[2022-04-02 17:45] LABS: Ferritin 316 ng/mL (11-264)
== END ==
PROVIDERS: Family Provider Family Medicine; PCP Family Medicine; Referring Provider Internal Medicine Hematology & Oncology; Visit Provider Internal Medicine Hematology & Oncology
DX: D50.9 Iron deficiency anemia, unspecified (principal)
CPT/HCPCS: 36415; 80053; 82728; 83540; 83550; 85025

== ENCOUNTER 2022-08-16 19:26 | Emergency (ER) | payer OTHER, SELFPAY ==
[2022-05-12 14:37] VITALS: BMI 29.0
[2022-08-16] VITALS (8 sets, daily range): BP systolic 136–152; BP diastolic 70–109; PULSE 55–83; RESP 24; TEMP 35.8; O2SAT 97–100; BMI 30.3
[2022-08-16] MEDS: ONDANSETRON 4 MG/2 ML INJ IV (19:58)
[2022-08-16 20:05] LABS: Add Manual Diff / Slide Review NO; Basophils Absolute Auto 0 /uL (0-100); Basophils Percent Auto 0.5 % (0-2); Eosinophils Absolute Auto 100 /uL (0-450); Eosinophils Percent Auto 1.5 % (2-4); Hematocrit 42.7 % (36-46); Hemoglobin 14.6 g/dL (12.0-16.0); Lymphocytes Absolute Auto 1200 /uL (1100-4500); Lymphocytes Percent Auto 15.1 % (25-40); Mean Corpuscular HGB Conc 34.3 % (30-36); Mean Corpuscular Hemoglobin 30.5 PG (26-34); Monocytes Absolute Auto 600 /uL (0-900); Monocytes Percent Auto 7.6 % (3-14); Neutrophils Absolute Auto 6100 /uL (1500-7000); Neutrophils Percent Auto 75.3 % (50-75); Platelet Count 311 X10^3/uL (150-400); Red Blood Cell Count 4.79 X10^6/uL (4.0-5.2); Red Cell Distribution Width 13.2 % (11.6-14.8); White Blood Cell Count 8.2 X10^3/uL (4.5-11.0)
[2022-08-16 20:14] LABS: Alanine Aminotransferase 20 IU/L (<35); Albumin 4.2 g/dL (3.5-5.0); Albumin Globulin Ratio 1.4 (1.0-2.8); Alkaline Phosphatase 74 U/L (38-126); Aspartate Aminotransferase 22 IU/L (14-36); BUN Creatinine Ratio 14.1 (6-22); Bilirubin Total 0.5 mg/dL (0.2-1.3); Blood Urea Nitrogen 10 mg/dL (7-17); Calcium 9.5 mg/dL (8.4-10.2); Carbon Dioxide 28 mmol/L (22-32); Chloride 106 mmol/L (98-107); Estimated Glomerular Filt Rate > 60 mL/min (>60); Glucose 129 mg/dL (70-100); HEMOLYSIS < 15 (0-50); Lipase 30 U/L (23-300); Potassium 3.9 mmol/L (3.4-5.1); Sodium 142 mmol/L (137-145); Total Protein 7.2 g/dL (6.3-8.2)
--- NOTE | 2022-08-16 20:21 | ED.NAVMDI ---
HPI - Nausea/Vomiting/Diarrhea General Chief complaint: Nausea/Vomiting/Diarrhea Stated complaint: Nausea and Vomiting, Low in Iron, SOB Time Seen by Provider: 08/16/22 20:03 Source: patient Mode of arrival: Ambulatory Limitations: no limitations History of Present Illness HPI Narrative: Patient is a 61-year-old female who is here for evaluation for approximately 24 hours nausea and vomiting and abdominal pain. She also describes shortness symptoms started yesterday. She is had these symptoms before. Chest pain. No recent travel. No recent antibiotics. No urinary symptoms. Has not tried anything for the symptoms prior to arrival. Related Data Home Medications Medication Instructions Recorded Confirmed linaclotide 145 mcg capsule 145 mcg PO QAM 08/23/19 04/03/22 (Linzess) dicyclomine 20 mg tablet 20 mg PO TID 10/31/19 04/03/22 cholecalciferol (vitamin D3) 50 50 mcg PO DAILY 05/07/20 04/03/22 mcg (2,000 unit) capsule Previous Rx's Medication Instructions Recorded omeprazole 10 mg capsule,delayed 10 mg PO DAILY #90 caps 05/07/20 release methocarbamol 750 mg tablet 750 mg PO TIDP PRN Spasms #90 tabs 02/22/21 meloxicam 7.5 mg tablet See Rx Instructions .Route 10/10/21 .COMPLEX #30 tabs pregabalin 200 mg capsule 200 mg PO TID #90 caps 03/17/22 metoclopramide HCl 10 mg tablet 10 mg PO Q6H PRN nausea and 08/17/22 (Reglan) vomiting #14 tabs vancomycin 125 mg capsule 125 mg PO QID 10 days #40 caps 08/17/22 Allergies Allergy/AdvReac Type Severity Reaction Status Date / Time penicillin G [PENICILLIN G] Allergy Severe RASH AND Verified 09/13/21 13:54 ITCHING Sulfa (Sulfonamide Allergy Severe HIVES Verified 09/13/21 13:54 Antibiotics) [SULFA (SULFONAMIDE ANTIBIOTICS)] milnacipran [From Savella] AdvReac Severe anxiety Verified 09/13/21 13:54 and elevated BP venlafaxine [VENLAFAXINE] AdvReac Severe MESSED ME Verified 09/13/21 13:54 UP bupropion [BUPROPION] AdvReac Intermediate MESSED ME Verified 09/13/21 13:54 UP lisdexamfetamine AdvReac Intermediate Swelling Verified 09/13/21 13:54 [From VYVANSE] of arms, legs, neck methylphenidate AdvReac Intermediate muscle Verified 09/13/21 13:54 [From CONCERTA] spasm swelling of neck and arms Review of Systems Constitutional Constitutional: Reports system reviewed and no additional complaints, except as documented Respiratory Respiratory: Reports system reviewed and no additional complaints, except as documented Gastrointestinal Gastrointestinal: Reports system reviewed and no additional complaints, except as documented Genitourinary Genitourinary: Reports system reviewed and no additional complaints, except as documented Patient History Medical History Alcohol dependence in remission (12/02/10) Arthritis of both hands (11/07/16) Arthritis of carpometacarpal (CMC) joint of left thumb (09/23/17) Attention deficit disorder Cervical arthritis (09/16/16) Closed right ankle fracture (1975) DDD (degenerative disc disease) Drug abuse in remission Fibromyalgia (07/23/16) Gastroesophageal reflux disease History of hiatal hernia Hyperalgesia (07/07/16) Hypertension Iritis Iron deficiency anemia (12/09/13) Irritable bowel syndrome Irritable bowel syndrome with constipation Prurigo nodularis Tobacco use (08/25/17) Xerostomia Surgical History H/O exploratory laparotomy H/O hysterectomy with oophorectomy H/O laparoscopy History of ankle surgery (1975) History of colon surgery History of thumb surgery History of toe surgery (1999) Family History Father Heart disease Diabetes mellitus Mother Depression Hypertension Sister No problems noted. Social History household members: family Smoking Status: Current every day smoker alcohol intake: former substance use type: former substance user Smoking Status: Current every day smoker alcohol intake frequency: 0-2 drinks per day Substance Use Type: does not use Exam Initial Vital Signs Initial Vital Signs: Vital Signs Temperature 96.5 F L 08/16/22 19:38 Pulse Rate 83 08/16/22 19:38 Respiratory Rate 24 08/16/22 19:38 Blood Pressure 147/70 H 08/16/22 19:38 Pulse Oximetry 100 08/16/22 19:38 Oxygen Delivery Method 08/16/22 19:38 HENW[place] Head: normal to inspection and normocephalic Resp Effort & Inspection: normal respiratory effort Cardio Rate: regular rate GI Inspection: normal to inspection and non-distended Neuro General: patient alert and patient awake Course Orders Ordered: ED Orders 08/16/22 19:55 Complete Blood Count AUTO DIFF Stat Comprehensive Metabolic Panel Stat Lipase Stat 08/16/22 22:10 GI Panel (Film Array) Stat Urine Microscopic Stat 08/16/22 22:19 Hemoglobin and Hematocrit Stat Discontinued Medications Sodium Chloride (Normal Saline 0.9%) 1,000 mls @ 1,000 mls/hr IV BOLUS ONE Stop: 08/16/22 21: Last Infusion: 08/16/22 22:05 Dose: 0 mls/hr Documented By: Admin: 08/16/22 20:44 Dose: 1,000 mls/hr Documented By: MIKE Metoclopramide HCl (Metoclopramide 10 Mg/2 Ml Inj) 10 mg IV NOW ONE Stop: 08/16/22 20:25 Last Admin: 08/16/22 20:44 Dose: 10 mg Documented By: MIKE Metoclopramide HCl (Metoclopramide Hcl 5 Mg Tablet) 5 mg PO NOW ONE Stop: 08/17/22 00:40 Metoclopramide HCl (Metoclopramide Hcl 10 Mg Tablet) 10 mg PO NOW ONE Stop: 08/17/22 00:41 Last Admin: 08/17/22 00:49 Dose: 10 mg Documented By: MIKE Ondansetron HCl (Ondansetron 4 Mg Odt) 4 mg PO NOW PRN PRN Reason: Nausea And Vomiting Ondansetron HCl (Ondansetron 4 Mg/2 Ml Inj) 4 mg IV NOW PRN PRN Reason: Nausea And Vomiting Last Admin: 08/16/22 19:58 Dose: 4 mg Documented By: BRANDEN Vancomycin HCl (Vancomycin 125 Mg Capsule) 125 mg PO NOW ONE Stop: 08/17/22 00:02 Last Admin: 08/17/22 00:48 Dose: 125 mg Documented By: MIKE Vital Signs Vital signs: Vital Signs - 8 hr 08/16/22 19:38 08/16/22 20:10 08/16/22 20:12 Temperature 96.5 F L Pulse Rate 83 75 Respiratory Rate 24 Blood Pressure 147/70 H 139/80 Pulse Oximetry 100 100 Oxygen Delivery Method Room Air 08/16/22 20:12 08/16/22 20:27 08/16/22 20:30 Temperature Pulse Rate 70 55 L Respiratory Rate Blood Pressure 149/79 H Pulse Oximetry 100 100 Oxygen Delivery Method 08/16/22 20:42 08/16/22 21:00 08/16/22 21:00 Temperature Pulse Rate 63 72 Respiratory Rate Blood Pressure 152/109 H Pulse Oximetry 99 97 Oxygen Delivery Method 08/16/22 21:11 08/16/22 21:11 08/17/22 00:51 Temperature 98.2 F Pulse Rate 74 72 Respiratory Rate 16 Blood Pressure 136/71 132/71 Pulse Oximetry 100 95 Oxygen Delivery Method Room Air MDM - Nausea/Vomiting/Diarrhea Differential Diagnosis Differential diagnosis: Likely traveler's diarrhea, food poisoning, gastroenteritis, clostridium difficile infection and drug-induced nausea and vomiting Condition is:: Well Controlled Chronic Condition is having:: Mild excerbation Condition is at treatment goal?: Yes Discussed with:: Patient Medical Records Attestation: I reviewed the patient's medical records. Medical records narrative: History of alcohol abuse Lab Data Attestation: I reviewed the patient's lab results. Result diagrams: 08/16/22 22:19 08/16/22 19:55 Labs: Lab Results 08/16/22 08/16/22 08/16/22 Range/Units 19:55 19:55 22:10 WBC 8.2 (4.5-11.0) X10^3/uL RBC 4.79 (4.0-5.2) X10^6/uL Hgb 14.6 (12.0-16.0) g/dL Hct 42.7 (36-46) % MCV 89.0 (80-100) fL MCH 30.5 (26-34) PG MCHC 34.3 (30-36) % RDW 13.2 (11.6-14.8) % Plt Count 311 (150-400) X10^3/uL Neut % (Auto) 75.3 H (50-75) % Lymph % (Auto) 15.1 L (25-40) % [place] % (Auto) 7.6 (3-14) % Eos % (Auto) 1.5 L (2-4) % Baso % (Auto) 0.5 (0-2) % Neut # (Auto) 6100 (8171-1098) /uL Lymph # (Auto) 1200 (3051-9245) /uL [place] # (Auto) 600 (0-900) /uL Eos # (Auto) 100 (0-450) /uL Baso # (Auto) 0 (0-100) /uL Sodium 142 (137-145) mmol/L Potassium 3.9 (3.4-5.1) mmol/L Chloride 106 (98-107) mmol/L Carbon Dioxide 28 (22-32) mmol/L BUN 10 (7-17) mg/dL Creatinine 0.71 (0.52-1.04) mg/dL Estimated GFR > 60 (>60) mL/min BUN/Creatinine Ratio 14.1 (6-22) Glucose 129 H (70-100) mg/dL Calcium 9.5 (8.4-10.2) mg/dL Total Bilirubin 0.5 (0.2-1.3) mg/dL AST 22 (14-36) IU/L ALT 20 (<35) IU/L Alkaline Phosphatase 74 (38-126) U/L Total Protein 7.2 (6.3-8.2) g/dL Albumin 4.2 (3.5-5.0) g/dL Globulin 3.0 (1.7-4.1) g/dL Albumin/Globulin Ratio 1.4 (1.0-2.8) Lipase 30 (23-300) U/L Urine RBC None seen (0-5/HPF) Urine WBC 0-1/hpf (0-5/HPF) Ur Squamous Epith Cells 1-5 /hpf (0-5/HPF) Urine Bacteria Occasional (0-1) (None) Urine Mucus 2+ H (Negative) Ur Culture Indicated? Cult not indicated Stl C. cayetanensis PCR (Not Detect) Stool Rotavirus (PCR) (Not Detect) Stool Adenovirus (PCR) (Not Detect) Stool Astrovirus (PCR) (Not Detect) Stool Cryptosporidium PCR (Not Detect) Stl E.coli Shiga Tox PCR (Not Detect) St Sh/Enteroin Ecoli PCR (Not Detect) Stool E coli O157 PCR Stl Enterotoxigenic E PCR (Not Detect) Stool EPEC (PCR) (Not Detect) Stl E. histolytica PCR (Not Detect) Stool Giardia Lamblia PCR (Not Detect) Stool Sapovirus (PCR) (Not Detect) Stl P. shigelloides PCR (Not Detect) St Y.enterocolitica PCR (Not Detect) Stool Vibrio (PCR) (Not Detect) Stl Vibrio cholerae PCR (Not Detect) Stl Enteroaggr Ecoli PCR (Not Detect) Stl Norovirus GI/GII PCR (Not Detect) Campylobacter (PCR) (Not Detect) C. difficile Tox (PCR) (Not Detect) Salmonella (PCR) (Not Detect) 08/16/22 08/16/22 Range/Units 22:10 22:19 WBC (4.5-11.0) X10^3/uL RBC (4.0-5.2) X10^6/uL Hgb 14.1 (12.0-16.0) g/dL Hct 41.1 (36-46) % MCV (80-100) fL MCH (26-34) PG MCHC (30-36) % RDW (11.6-14.8) % Plt Count (150-400) X10^3/uL Neut % (Auto) (50-75) % Lymph % (Auto) (25-40) % [place] % (Auto) (3-14) % Eos % (Auto) (2-4) % Baso % (Auto) (0-2) % Neut # (Auto) (7080-4377) /uL Lymph # (Auto) (1569-1486) /uL [place] # (Auto) (0-900) /uL Eos # (Auto) (0-450) /uL Baso # (Auto) (0-100) /uL Sodium (137-145) mmol/L Potassium (3.4-5.1) mmol/L Chloride (98-107) mmol/L Carbon Dioxide (22-32) mmol/L BUN (7-17) mg/dL Creatinine (0.52-1.04) mg/dL Estimated GFR (>60) mL/min BUN/Creatinine Ratio (6-22) Glucose (70-100) mg/dL Calcium (8.4-10.2) mg/dL Total Bilirubin (0.2-1.3) mg/dL AST (14-36) IU/L ALT (<35) IU/L Alkaline Phosphatase (38-126) U/L Total Protein (6.3-8.2) g/dL Albumin (3.5-5.0) g/dL Globulin (1.7-4.1) g/dL Albumin/Globulin Ratio (1.0-2.8) Lipase (23-300) U/L Urine RBC (0-5/HPF) Urine WBC (0-5/HPF) Ur Squamous Epith Cells (0-5/HPF) Urine Bacteria (None) Urine Mucus (Negative) Ur Culture Indicated? Stl C. cayetanensis PCR Not detected (Not Detect) Stool Rotavirus (PCR) Not detected (Not Detect) Stool Adenovirus (PCR) Not detected (Not Detect) Stool Astrovirus (PCR) Not detected (Not Detect) Stool Cryptosporidium PCR Not detected (Not Detect) Stl E.coli Shiga Tox PCR Not detected (Not Detect) St Sh/Enteroin Ecoli PCR Not detected (Not Detect) Stool E coli O157 PCR Not Reportable Stl Enterotoxigenic E PCR Not detected (Not Detect) Stool EPEC (PCR) Not detected (Not Detect) Stl E. histolytica PCR Not detected (Not Detect) Stool Giardia Lamblia PCR Not detected (Not Detect) Stool Sapovirus (PCR) Not detected (Not Detect) Stl P. shigelloides PCR Not detected (Not Detect) St Y.enterocolitica PCR Not detected (Not Detect) Stool Vibrio (PCR) Not detected (Not Detect) Stl Vibrio cholerae PCR Not detected (Not Detect) Stl Enteroaggr Ecoli PCR Not detected (Not Detect) Stl Norovirus GI/GII PCR Not detected (Not Detect) Campylobacter (PCR) Not detected (Not Detect) C. difficile Tox (PCR) Detected H (Not Detect) Salmonella (PCR) Not detected (Not Detect) Urine Dip Bedside Urine Glucose Negative Bedside Urine Bilirubin - Negative Bedside Urine Ketone + 15 Urine Specific [place] 1.03 Bedside Urine Occult Blood - Negative Bedside Urine pH 6.0 Bedside Urine Protein +/- 15 Bedside Urine Urobilinogen - Negative Bedside Urine Nitrite - Negative Bedside Urine Leukocytes +/- 15 Esterase MDM Narrative Medical decision making narrative: Patient reports improvement of symptoms with above-stated therapies. It appears that Reglan seems to help her nausea quite a bit. She did have an episode of diarrhea here in the emergency department. Were able to obtain a sample was positive for C diff. unsure if this is an incidental finding or related to her abdominal pain today regardless who treat him with antibiotics. She was given a 1st dose here in the ER and a prescription was sent to the pharmacy of her choice. Is tolerating oral intake. Hold on any radiologic studies for now given her exam is I have low suspicion for acute intra-abdominal surgical pathology. She was given return precautions. She expressed understanding and agreement. Discharge Plan Departure Patient Disposition: Home Clinical Impression: Nausea and vomiting, C. difficile diarrhea Instructions: Nausea and Vomiting-Adult, Clostridioides (Clostridium) difficile Infection Activity Restrictions/Additional Instructions: I do recommend that you take the antibiotics as directed. You have no restrictions on your diet or activities. Contact your primary doctor for follow-up. Return to the emergency department for any new or worsening symptoms. Prescriptions: New metoclopramide HCl [Reglan] 10 mg tablet 10 mg PO Q6H PRN (Reason: nausea and vomiting) Qty: 14 0RF vancomycin 125 mg capsule 125 mg PO QID 10 Days Qty: 40 0RF No Action Linzess 145 mcg capsule 145 mcg PO QAM dicyclomine 20 mg tablet 20 mg PO TID cholecalciferol (vitamin D3) 50 mcg (2,000 unit) capsule 50 mcg PO DAILY omeprazole 10 mg capsule,delayed release(DR/EC) 10 mg PO DAILY Qty: 90 3RF methocarbamol 750 mg tablet 750 mg PO TIDP PRN (Reason: Spasms) Qty: 90 2RF meloxicam 7.5 mg tablet See Rx Instructions .ROUTE .COMPLEX Qty: 30 1RF Dose Instruction: take 1 tablet by mouth once daily if needed for pain Rx Instructions: take 1 tablet by mouth once daily if needed for pain pregabalin 200 mg capsule 200 mg PO TID Qty: 90 2RF Referrals: Vania Leger DO [Primary Care Provider] - Stand Alone Forms: Patient Portal/API
[2022-08-16] MEDS: SODIUM CHLORIDE 0.9% 1,000 ML 1000 ML IV (20:44)
[2022-08-16] MEDS: METOCLOPRAMIDE 10 MG/2 ML INJ IV (20:44)
[2022-08-16 22:33] LABS: Hematocrit 41.1 % (36-46); Hemoglobin 14.1 g/dL (12.0-16.0)
[2022-08-16 22:40] LABS: Bacteria Urine Occasional (0-1); Culture Indicated Urine Cult Not Indicated; Mucus Urine 2+ (Negative); RBC Urine None Seen (0-5/HPF); Squamous Epithelial Cell Urine 1-5 /HPF (0-5/HPF); WBC Urine 0-1/HPF (0-5/HPF)
[2022-08-16 23:53] LABS: Adenovirus F 40/41 Not Detected (Not Detect); Astrovirus Not Detected (Not Detect); Campylobacter Not Detected (Not Detect); Cryptosporidium Not Detected (Not Detect); Cyclospora cayetanensis Not Detected (Not Detect); Entamoeba histolytica Not Detected (Not Detect); Enteroaggregative E.coli Not Detected (Not Detect); Enteropathogenic E.coli Not Detected (Not Detect); Enterotoxigenic E.coli It/st Not Detected (Not Detect); Giardia lamblia Not Detected (Not Detect); Norovirus GI/GII Not Detected (Not Detect); Plesiomonsa shigelloides Not Detected (Not Detect); Rotavirus A Not Detected (Not Detect); Salmonella Not Detected (Not Detect); Sapovirus Not Detected (Not Detect); Shiga-like toxin-prod E.coli Not Detected (Not Detect); Shigella/Enteroinvasive E.coli Not Detected (Not Detect); Vibrio Not Detected (Not Detect); Vibrio cholerae Not Detected (Not Detect); Yersinia enterocolitica Not Detected (Not Detect)
[2022-08-16 23:54] LABS: Clostridium difficile toxin AB Detected (Not Detect)
[2022-08-17] MEDS: VANCOMYCIN 125 MG CAPSULE PO (00:48)
[2022-08-17] MEDS: METOCLOPRAMIDE HCL 10 MG TABLET PO (00:49)
[2022-08-17 00:51] VITALS: BP 132/71; PULSE 72; RESP 16; TEMP 36.8; O2SAT 95
[2022-08-19 16:52] LABS: C difficie Toxins A and B, EIA Negative (Negative)
== END 2022-08-17 00:52 | disposition home or self-care (01) ==
PROVIDERS: Emergency Provider Emergency Medicine; Family Provider Family Medicine; PCP Family Medicine
DX: R11.2 Nausea with vomiting, unspecified (principal); R10.9 Unspecified abdominal pain; A04.72 Enterocolitis due to Clostridium difficile, not specified as recurrent
CPT/HCPCS: 36415; 80053; 81003; 81015; 83690; 85014; 85018; 85025; 87324; 87507; 96374; 96375; 99284; J2405; J2765

== ENCOUNTER → 2022-10-22 15:02 | Outpatient (CLI) | payer OTHER, SELFPAY ==
[2022-05-12 14:37] VITALS: BMI 29.0
== END ==
PROVIDERS: Family Provider Family Medicine; PCP Family Medicine; Referring Provider Family Medicine; Visit Provider Family Medicine
DX: R00.2 Palpitations (principal)
CPT/HCPCS: 93242